=== PATIENT | male | born 1945 | race Hispanic/Latino ===

== ENCOUNTER 2018-01-23 12:07 | Emergency (ER) | payer MEDICARE, MEDICAID ==
[2018-01-23] MEDS ORDERED: Bacitracin Zinc 1 Packet ONE (14:10)
== END 2018-01-23 14:43 | disposition home or self-care (01) ==
LOC: ERS 12:07
DX: S80.811A Abrasion, right lower leg, initial encounter (principal); I25.10 Atherosclerotic heart disease of native coronary artery without angina pectoris; B19.20 Unspecified viral hepatitis C without hepatic coma; E66.9 Obesity, unspecified; E78.2 Mixed hyperlipidemia; I10 Essential (primary) hypertension; W22.8XXA Striking against or struck by other objects, initial encounter
CPT/HCPCS: 99283

== ENCOUNTER 2018-01-29 12:15 | Emergency (ER) | payer MEDICARE, MEDICAID ==
[2018-01-29] MEDS ORDERED: cefTRIAXone\\ROCEPHIN 2 GM VIAL ONE (13:42)
[2018-01-29 13:56] LABS: Hemoglobin 13.2 g/dL (14.0-18.0); Mean Corpuscular HGB CONC 33.9 g/dL (32.0-36.0); Mean Corpuscular Volume 91.4 fL (78.0-98.0); Mean Platelet Volume 9.6 fL (7.4-10.4); Platelet Count 203 thou/uL (130-400); RBC Distribution Width 12.9 % (11.5-14.5); Red Blood Cell (RBC) Count 4.26 mill/uL (4.70-6.10); White Blood Cell (WBC) Count 8.5 thou/uL (4.8-10.8)
[2018-01-29 14:14] LABS: ALT (SGPT) 21 U/L (8-55); AST (SGOT) 23 U/L (5-34); Albumin 4.1 g/dL (3.4-4.8); Alkaline Phosphatase 63 U/L (40-150); Anion Gap 16 mmol/L (10-20); BUN (Urea Nitrogen) 22 mg/dL (8.4-25.7); Band 1 % (5-11); Bilirubin, Total 0.7 mg/dL (0.2-1.2); Calc. Creatinine Clearance 0 mL/min (70-130); Calcium 9.7 mg/dL (7.8-10.44); Carbon Dioxide 26 mmol/L (23-31); Chloride 100 mmol/L (98-107); Estimated GFR-MDRD 63; Globulin 3.4 g/dL (2.4-3.5); Glucose 221 mg/dL (83-110); Lymphocytes 5 % (21-51); MDiff Complete? YES; Monocytes 2 % (0-10); Neutrophil 92 % (42-75); PLT Morphology Comment Appears Adequate; Potassium 3.8 mmol/L (3.5-5.1); Protein, Total 7.5 g/dL (5.8-8.1); Sodium 138 mmol/L (136-145)
--- NOTE | 2018-01-29 14:30 | RAD ---
RIGHT FORELEG RADIOGRAPHS 2 VIEWS: DATE: 01/29/18. PROVIDED CLINICAL HISTORY: Right leg infection. FINDINGS: Vascular calcifications are seen. No evidence for soft tissue gas. No evidence for fracture or othe r acute osseous abnormality. IMPRESSION: As above. POS: LEIGHA
== END 2018-01-29 15:22 | disposition home or self-care (01) ==
LOC: ERS 12:15
DX: L03.115 Cellulitis of right lower limb (principal); I25.10 Atherosclerotic heart disease of native coronary artery without angina pectoris; E78.5 Hyperlipidemia, unspecified; I10 Essential (primary) hypertension; E66.9 Obesity, unspecified
CPT/HCPCS: 36415; 80053; 83605; 85025; 87040; 96365; J0696

== ENCOUNTER 2018-03-26 09:52 | Observation (INO) | payer MEDICARE, MEDICAID ==
[2018-03-26 10:23] LABS: #Eosinphils 0.1 thou/uL (0.0-0.7); #Lymphocytes 1.5 thou/uL (1.20-3.40); #Monocytes 0.6 thou/uL (0.11-0.59); #Neutrophils 5.7 thou/uL (1.40-6.50); %Basophils 0.1 % (0.0-1.0); %Eosinophils 1.2 % (0.0-10.0); %Lymphocytes 18.6 % (21.0-51.0); %Monocytes 8.1 % (0.0-10.0); %Neutrophils 72.1 % (42.0-75.0); Hemoglobin 13.5 g/dL (14.0-18.0); Mean Corpuscular Hemoglobin 29.3 pg (27.0-31.0); Platelet Count 237 thou/uL (130-400); RBC Distribution Width 13.5 % (11.5-14.5); Red Blood Cell (RBC) Count 4.59 mill/uL (4.70-6.10); White Blood Cell (WBC) Count 7.9 thou/uL (4.8-10.8)
[2018-03-26 10:39] LABS: ALT (SGPT) 24 U/L (8-55); AST (SGOT) 26 U/L (5-34); Alkaline Phosphatase 66 U/L (40-150); Anion Gap 13 mmol/L (10-20); BUN (Urea Nitrogen) 23 mg/dL (8.4-25.7); Bilirubin, Total 0.6 mg/dL (0.2-1.2); CK (CPK) 120 U/L (30-200); Calc. Creatinine Clearance 0 mL/min (70-130); Calcium 9.5 mg/dL (7.8-10.44); Carbon Dioxide 26 mmol/L (23-31); Chloride 102 mmol/L (98-107); Estimated GFR-MDRD 75; Globulin 3.2 g/dL (2.4-3.5); Glucose 142 mg/dL (83-110); Protein, Total 7.2 g/dL (5.8-8.1); Sodium 137 mmol/L (136-145)
[2018-03-26 10:43] LABS: CKMB 4.4 ng/mL (0-6.6); Troponin I 0.012 ng/mL (< 0.028)
--- NOTE | 2018-03-26 11:00 | RAD ---
PORTABLE CHEST: Date: 03/26/18 PROVIDED CLINICAL HISTORY: Shortness of breath. FINDINGS: Comparison with 01/13/15. The cardiac silhouette appears enlarged. Median sternotomy changes are again seen. Atherosclerosis ag ain noted. No focal consolidation, pleural fluid, or pneumothorax apparent. IMPRESSION: No evidence for an acute cardiopulmonary process. POS: JENNIFER
[2018-03-26 11:57] LABS: Bilirubin Negative (Negative); Blood, Urine Negative (Negative); Clarity CLOUDY (Clear); Glucose, Urine (Dipstick) Negative (Negative); Leukocyte Large (Negative); Nitrite Positive (Negative); Protein, Urine (Dipstick) 30 mg/dL (Neg-Trace); Specific Gravity, Urine 1.018 (1.002-1.036); pH, Urine 7.5 (5.0-9.0)
[2018-03-26 12:00] LABS: Bacteria/HPF 4+ HPF (None Seen); Hyaline Casts/LPF 0-3 HYALINE CAST LPF (0-3 Hyaline); RBC/HPF 0-3 HPF (0-3); Squamous Epithelial None Seen HPF (0-3)
[2018-03-26] MEDS ORDERED: cefTRIAXone\\ROCEPHIN 1 GM VIAL ONE (12:29)
[2018-03-26] MEDS ORDERED: Sodium Chloride 0.9% 100 ML ONE (12:29)
[2018-03-26] MEDS ORDERED: Bisacodyl 10 MG SUPP PR PRN (13:06)
[2018-03-26] MEDS ORDERED: hydrALAZINE 20 MG/ML VIAL SLOW IVP PRN (13:06)
[2018-03-26] MEDS ORDERED: HumaLOG 300 UNITS/3 ML VIAL SC PRN ×2 (13:06)
[2018-03-26] MEDS ORDERED: Artificial Tears 18 DROP/0.9 ML EA EYE PRN (13:06)
[2018-03-26] MEDS ORDERED: Ondansetron ODT 4 MG TAB PO PRN (13:06)
[2018-03-26] MEDS ORDERED: Bisacodyl 5 MG TAB PO PRN (13:06)
[2018-03-26] MEDS ORDERED: Cepastat Lozenges 1 LOZ PO PRN (13:06)
[2018-03-26] MEDS ORDERED: Dextrose 50% Abboject 50 ML SYRINGE SLOW IVP PRN (13:06)
[2018-03-26] MEDS ORDERED: Nitroglycerin 0.4 MG TAB (25 Tab Bottle) SL PRN (13:06)
[2018-03-26] MEDS ORDERED: Eucerin (Mineral Oil/Petrolatum,White) 30 gm Jar TOP PRN (13:06)
[2018-03-26] MEDS ORDERED: Loperamide HCl 2 MG CAP PO PRN (13:06)
[2018-03-26] MEDS ORDERED: Diabetic Tussin 200 MG/10 ML UDCUP PO PRN (13:06)
[2018-03-26] MEDS ORDERED: Acetaminophen 325 MG TAB PO PRN (13:06)
[2018-03-26] MEDS ORDERED: Zolpidem Tartrate 5 MG TAB PO PRN (13:06)
[2018-03-26] MEDS ORDERED: Dextrose 5% in Water 1,000 ML IV PRN (13:06)
[2018-03-26] MEDS ORDERED: Senokot S 8.6-50 MG TAB PO PRN (13:06)
[2018-03-26] MEDS ORDERED: Calcium Carbonate 500 MG ChewTAB PO PRN (13:06)
[2018-03-26] MEDS ORDERED: Ondansetron PF 4 MG/2 ML Vial IVP PRN (13:06)
[2018-03-26] MEDS ORDERED: Loratadine 10 MG TAB PO PRN (13:06)
[2018-03-26] MEDS ORDERED: Sodium Chloride 0.65% Nasal 44 ML BOT EA NARE PRN (13:06)
--- NOTE | 2018-03-26 14:02 | HP ---
PRIMARY CARE PHYSICIAN: Dr. Herbert. REASON FOR ADMISSION: Dyspnea, multiple PVCs and bigeminy. HISTORY OF PRESENT ILLNESS: A 73-year-old male who has multiple medical problems including coronary artery disease, peripheral vascular disease, diabetes, hypertension, dyslipidemia, obesity w ho is experiencing dyspnea for about 6 months to 1 year. He feels that whenever he feels pale at bethany t time, he has to take a deep breath. After that he feels better. Initially, this type of deep kortney thing spells happening intermittently and rarely. The patient is following Dr. Pena as an outpatie nt basis. For the last 3 days, he has increasing number of gasping for breath that type of spells, b ut he denies any associated chest pain, palpitation, dizziness, syncope. He denies any orthopnea, PN D or leg swelling. He denies any muscle cramps. He is experiencing this type of spells more frequen tly and that is why he decided to come to the emergency room for evaluation. Patient reports that when he saw Dr. Pena, he was instructed to get some kind of procedure to be do ne, but he did not have that procedure. The patient does not have any clue about which procedure is talking about, but he pointing towards pacemaker. Patient denies any orthopnea, PND, leg swelling. He does have chronic low back pain and that is why after walking a few minutes, he gets leg pain as well as back pain and that is why he is pretty much sedentary nowadays. When he came to emergency room, his EKG was showing multiple PVCs, bigeminy, trigeminy pattern and hi s symptoms were corresponding to that spells in the emergency room. REVIEW OF SYSTEMS: The following complete review of systems was negative, unless otherwise mentioned in the HPI or below: Constitutional: Weight loss or gain, ability to conduct usual activities. Sk in: Rash, itching. Eyes: Double vision, pain. ENT/Mouth: Nose bleeding, neck stiffness, pain, te nderness. Cardiovascular: Palpitations, dyspnea on exertion, orthopnea. Respiratory: Shortness of breath, wheezing, cough, hemoptysis, fever or night sweats. Gastrointestinal: Poor appetite, abdom inal pain, heartburn, nausea, vomiting, constipation, or diarrhea. Genitourinary: Urgency, frequenc y, dysuria, nocturia. Musculoskeletal: Pain, swelling. Neurologic/Psychiatric: Anxiety, depressio n. Allergy/Immunologic: Skin rash, bleeding tendency. Please see my HPI for pertinent positive and negative. All other review of system reviewed and negat noble except as mentioned in the HPI. PAST MEDICAL HISTORY: Coronary artery disease, required CABG; gastroesophageal reflux disease; histo ry of hep C; diabetes type 2; dyslipidemia; obesity; chronic low back pain. PAST SURGICAL HISTORY: CABG x4, hernia repair, back surgery. PAST PSYCHIATRIC HISTORY: Reviewed and negative. SOCIAL HISTORY: The patient lives at home with family. No history of tobacco, alcohol or illicit dr ug abuse. FAMILY HISTORY: Diabetes, hypertension runs among several family members. No family history of sudd en cardiac . ALLERGIES: BACTRIM. CURRENT HOME MEDICATIONS: Vascepa one tablet twice daily, Zanaflex 4 mg twice daily, metformin 1000 mg twice daily, pentoxifylline 400 mg 3 times daily, TriCor 145 mg daily, glipizide 10 mg twice daily , Lipitor 10 mg daily, quinapril 40 mg at bedtime, hydrochlorothiazide 25 mg p.o. daily, Lantus insul in and Humalog insulin dose not known. EMERGENCY ROOM COURSE: Reviewed. PHYSICAL EXAMINATION: VITAL SIGNS: On arrival, blood pressure 117/77, pulse 74, respiratory rate 20, temperature 98.5, sat uration 99% on room air, weight 113.4 kilograms. GENERAL: Patient is currently alert, awake, in no obvious acute distress. HEAD: Normocephalic, atraumatic. EYES: Pupils round, reactive to light. Extraocular muscle intact. ENT: Oropharynx within normal limits. Moist mucous membranes. No oral lesion, no pharyngeal erythe ma, no exudate. NECK: Supple, slightly elevated JVD noted. No thyromegaly, no carotid bruit, no meningeal signs of irritation. LUNGS: Coarse breath sounds, but no rales, no wheezing, no accessory muscles of respiration in use. CARDIAC: S1, S2, slightly appears irregular. No gross murmur noted, no gallop, no rub. ABDOMEN: Obesity present. Bowel sounds present. EXTREMITIES: A trace edema noted and chronic changes. Upper extremity: Passive movements of all tasha ints are normal. BACK: Unremarkable, no point tenderness. NEUROLOGIC: Nonfocal examination. SKIN: No skin rash. PSYCHIATRIC: Normal affect. SIGNIFICANT LABORATORY DATA: EKG showing multiple premature ventricular complexes bigeminy, right bu ndle branch block pattern. Chest x-ray based on my review, cardiomegaly without any acute process. CBC: WBC 7.9, hemoglobin 13.5, platelet 237. BMP: Sodium 137, potassium 4.0, chloride 102, carbon dioxide 26, anion gap 13, BUN 23, creatinine 0.98, glucose 142, calcium 9.5. LFT: AST 26, ALT 24, a lkaline phosphatase 66, albumin 4.0. CK 120, CK-MB 4.4, troponin I 0.012. Urinalysis suggestive of urinary tract infection, though patient does not have any UTI symptoms. ASSESSMENT AND PLAN/IMPRESSION: 1. Dyspnea. The patient's dyspnea spell, he describes as a deep grasping breath which happens inter mittently and that corresponded to his episode of bigeminy, trigeminy in the emergency room. 2. Bigeminy, trigeminy and multiple premature ventricular contractions, symptomatic with dyspnea. W e will obtain echocardiography. We will check magnesium level. Cardiology will be consulted. We wi ll defer further plan to Cardiology. We will start metoprolol 25 mg twice daily. This patient's eff ective heart rate is normal, but because of bigeminy and trigeminy, his rate remains low. 3. Urinary tract infection. We will send urine culture and start Rocephin 1 gram q.24 hours. 4. Elevated BNP. We will obtain echocardiography to assess ejection fraction and other structural a bnormality. 5. Diabetes type 2. After confirming patient's home medication, we will resume glipizide, metformin , and insulin. Diabetic diet will be given. 6. Dyslipidemia. Check lipid profile tomorrow and continue Lipitor as per home dosage. 7. Hypertension. We will continue quinapril 40 mg daily. At this point, we will also continue hydr ochlorothiazide 25 mg p.o. daily. 8. Peripheral vascular disease. Continue pentoxifylline. 9. Chronic low back pain. Continue Zanaflex 4 mg twice daily p.r.n. and pain medication as needed. 10. Coronary artery disease. Continue aspirin 81 mg p.o. daily along with other medication as xiang sesay above. 11. Deep venous thrombosis prophylaxis. Lovenox 40 mg subcu daily. 12. Gastrointestinal prophylaxis, Pepcid 20 mg p.o. b.i.d. 13. Code status: The patient is FULL CODE. Patient's daughter present at bedside, she is surrogate decision maker. 14. Obesity. Dietary education given, weight loss education given. Disposition plan based on clinical course and Cardiology recommendation. Plan of care discussed with the patient and family member at bedside.
[2018-03-26] MEDS: HYDROcodone/Acetaminophen 5/325 mg Tablet PO PRN (16:19)
[2018-03-26] MEDS: metFORMIN 500 MG TAB PO SCH (16:20)
[2018-03-26] MEDS ORDERED: (Icosapent Ethyl [Vascepa] 2 GM) PO SCH (17:00)
[2018-03-26 19:06] LABS: CKMB 3.4 ng/mL (0-6.6); Troponin I 0.015 ng/mL (< 0.028)
[2018-03-26] MEDS: Famotidine 20 MG TAB PO SCH (20:44)
[2018-03-26] MEDS: tiZANidine HCl 4 MG TAB PO SCH (20:44)
[2018-03-26] MEDS ORDERED: tiZANidine HCl 4 MG TAB PO SCH (21:00)
[2018-03-26] MEDS ORDERED: Atorvastatin Calcium 10 MG TAB PO SCH (21:00)
[2018-03-26] MEDS ORDERED: Non-Formulary Item 1 EACH (Insulin Glargine,Hum.Rec.Anlog [Lantus Solostar] 50 UNIT) SQ SCH (21:00)
[2018-03-26] MEDS: Insulin Glargine 50 UNITS in Pre-Filled Syringe SC SCH (21:17)
[2018-03-27 04:13] LABS: #Eosinphils 0.2 thou/uL (0.0-0.7); #Lymphocytes 1.5 thou/uL (1.20-3.40); #Monocytes 0.7 thou/uL (0.11-0.59); #Neutrophils 5.2 thou/uL (1.40-6.50); %Basophils 0.3 % (0.0-1.0); %Eosinophils 2.6 % (0.0-10.0); %Lymphocytes 19.6 % (21.0-51.0); %Monocytes 8.7 % (0.0-10.0); %Neutrophils 68.8 % (42.0-75.0); Hemoglobin 13.1 g/dL (14.0-18.0); Mean Corpuscular HGB CONC 32.2 g/dL (32.0-36.0); Mean Corpuscular Hemoglobin 28.7 pg (27.0-31.0); Mean Corpuscular Volume 89.3 fL (78.0-98.0); Mean Platelet Volume 9.6 fL (7.4-10.4); Platelet Count 208 thou/uL (130-400); RBC Distribution Width 13.6 % (11.5-14.5); Red Blood Cell (RBC) Count 4.57 mill/uL (4.70-6.10); White Blood Cell (WBC) Count 7.6 thou/uL (4.8-10.8)
[2018-03-27 04:32] LABS: Anion Gap 13 mmol/L (10-20); BUN (Urea Nitrogen) 20 mg/dL (8.4-25.7); Calc. Creatinine Clearance 111 mL/min (70-130); Calcium 9.7 mg/dL (7.8-10.44); Carbon Dioxide 25 mmol/L (23-31); Chloride 105 mmol/L (98-107); Cholesterol 127 mg/dl (< 200 Desired); Estimated GFR-MDRD 81; Glucose 125 mg/dL (83-110); HDL Cholesterol 32 mg/dL (>60 Neg Risk); LDL Cholesterol, Calculated 66 mg/dL; Sodium 139 mmol/L (136-145); Triglycerides 143 mg/dL (Less than 150)
[2018-03-27] MEDS: tiZANidine HCl 4 MG TAB PO SCH (08:29)
[2018-03-27] MEDS: metFORMIN 500 MG TAB PO SCH ×2 (08:30→17:42)
[2018-03-27] MEDS: Famotidine 20 MG TAB PO SCH (08:31)
[2018-03-27] MEDS: HYDROcodone/Acetaminophen 5/325 mg Tablet PO PRN (08:39)
[2018-03-27] MEDS ORDERED: Hydrochlorothiazide 25 MG TAB PO SCH ×2 (09:00)
[2018-03-27] MEDS ORDERED: TRAMADOL PO SCH (09:00)
[2018-03-27] MEDS ORDERED: Aspirin 325 mg Enteric Coated Tablet PO SCH (09:00)
[2018-03-27] MEDS ORDERED: Enoxaparin Sodium 40 MG/0.4 ML SYRINGE SC SCH (09:00)
[2018-03-27] MEDS ORDERED: Fenofibrate Nanocrystallized 145 MG TAB PO SCH (09:00)
--- NOTE | 2018-03-27 09:44 | PDOC.PN ---
- Subjective Encounter Start Date: 03/27/18 Encounter Start Time: 07:50 -: old records requested/rev Patient seen and examined. No overnight events today he reports UTI symptoms - Objective Resuscitation Status: Resuscitation Status FULL:Full Resuscitation MAR Reviewed: Yes Vital Signs & Weight: Vital Signs (12 hours) Temp Pulse Resp BP Pulse Ox 03/27/18 08:00 98 F 70 18 168/78 H 94 L 03/27/18 03:32 97.9 F 76 15 142/88 H 93 L 03/26/18 22:38 97.5 F L 69 20 141/66 H 96 Weight Weight 246 lb I&O: 03/26/18 03/27/18 03/28/18 06:59 06:59 06:59 Intake Total 720 Output Total 375 Balance 345 Result Diagrams: 03/27/18 03:30 03/27/18 03:30 Additional Labs: Accuchecks 03/26/18 03/26/18 20:42 16:02 POC Glucose 170 H 168 H EKG Reviewed by me: Yes (PVCs) Phys Exam - Physical Examination Constitutional: NAD HEENT: PERRLA, moist MMs, sclera anicteric Neck: no JVD, supple Respiratory: no wheezing, no rales, no rhonchi Cardiovascular: RRR, no significant murmur, no rub Gastrointestinal: soft, non-tender, no distention, positive bowel sounds Musculoskeletal: no edema, pulses present Neurological: non-focal, normal sensation, moves all 4 limbs Lymphatic: no nodes Psychiatric: normal affect, A&O x 3 Skin: no rash, normal turgor Dx/Plan (1) Dyspnea Code(s): R06.00 - DYSPNEA, UNSPECIFIED Status: Acute Comment: due to PVCs (2) Elevated brain natriuretic peptide (BNP) level Code(s): R79.89 - OTHER SPECIFIED ABNORMAL FINDINGS OF BLOOD CHEMISTRY Status : Acute (3) Frequent PVCs Code(s): I49.3 - VENTRICULAR PREMATURE DEPOLARIZATION Status: Acute Comment : with intermittent bigeminy and trigeminy, symptomatic (4) UTI (urinary tract infection) Status: Acute (5) CAD (coronary artery disease) Code(s): I25.10 - ATHSCL HEART DISEASE OF [place] CORONARY ARTERY W/O ANG PCTRS Status: Chronic (6) Diabetes type 2, controlled Code(s): E11.9 - TYPE 2 DIABETES MELLITUS WITHOUT COMPLICATIONS Status: Chronic (7) Dyslipidemia Code(s): E78.5 - HYPERLIPIDEMIA, UNSPECIFIED Status: Chronic (8) GERD (gastroesophageal reflux disease) Code(s): K21.9 - GASTRO-ESOPHAGEAL REFLUX DISEASE WITHOUT ESOPHAGITIS Status: Chronic (9) Hypertension Code(s): I10 - ESSENTIAL (PRIMARY) HYPERTENSION Status: Chronic (10) Obesity (BMI 30-39.9) Code(s): E66.9 - OBESITY, UNSPECIFIED Status: Chronic - Plan cont current plan of care, continue antibiotics * continue rocephin for UTI, on discharge PO cipro * Dr Pena will see, ? metoprolol to be started * Echo pending * will consider discharge later today if cardiology OK * medication reviewed as below * symptomatic treatment. Review of Systems - Review of Systems ENT: negative: Ear Pain, Ear Discharge, Nose Pain, Nose Discharge, Nose Congestion, Mouth Pain, Mouth Swelling, Throat Pain, Throat Swelling, Other Respiratory: negative: Cough, Dry, Shortness of Breath, Hemoptysis, SOB with Excertion, Pleuritic Pain, Sputum, Wheezing Cardiovascular: negative: chest pain, palpitations, orthopnea, paroxysmal nocturnal dyspnea, edema, light headedness, other Gastrointestinal: negative: Nausea, Vomiting, Abdominal Pain, Diarrhea, Constipation, Melena, Hematochezia, Other Genitourinary: negative: Dysuria, Frequency, Incontinence, Hematuria, Retention , Other Musculoskeletal: negative: Neck Pain, Shoulder Pain, Arm Pain, Back Pain, Hand Pain, Leg Pain, Foot Pain, Other Skin: negative: Rash, Lesions, Raúl, Bruising, Other - Medications/Allergies Allergies/Adverse Reactions: Allergies Allergy/AdvReac Type Severity Reaction Status Date / Time trimethoprim [From Bactrim] Allergy Verified 03/26/18 13:11 Medications: Current Medications Acetaminophen (Tylenol) 650 mg PO Q4H PRN PRN Reason: Headache/Fever/Mild Pain (1-3) Hydrocodone Bitart/Acetaminophen ([place] 5/325) 1 tab PO Q4H PRN PRN Reason: Moderate Pain (4-6) Last Admin: 03/27/18 08:39 Dose: 1 tab Artificial Tears (Tears Naturale) 2 drop EA EYE PRN PRN PRN Reason: Dry Eyes Aspirin (Aspirin Chewable) 81 mg PO DAILY [facility] Last Admin: 03/27/18 08:32 Dose: 81 mg Atorvastatin Calcium (Lipitor) 10 mg PO HS [facility] Last Admin: 03/26/18 20:44 Dose: 10 mg Bisacodyl (Dulcolax) 10 mg PO DAILYPRN PRN PRN Reason: Constipation Bisacodyl (Dulcolax) 10 mg MA DAILYPRN PRN PRN Reason: Constipation Calcium Carbonate (Tums) 1,000 mg PO Q4H PRN PRN Reason: Heartburn or Indigestion Dextrose/Water (Dextrose 50%) 25 gm SLOW IVP PRN PRN PRN Reason: Hypoglycemia Enoxaparin Sodium (Lovenox) 40 mg SC 0900 [facility] Last Admin: 03/27/18 08:35 Dose: Not Given Famotidine (Pepcid) 20 mg PO BID [facility] Last Admin: 03/27/18 08:31 Dose: 20 mg Fenofibrate (Tricor) 145 mg PO DAILY [facility] Last Admin: 03/27/18 08:30 Dose: 145 mg Glipizide (Glucotrol Xl) 10 mg PO BID-AC [facility] Last Admin: 03/27/18 08:31 Dose: 10 mg Glucagon (Glucagon) 1 mg IM PRN PRN PRN Reason: Hypoglycemia Guaifenesin (Robitussin Sf) 200 mg PO Q4H PRN PRN Reason: Cough Hydralazine HCl (Apresoline) 10 mg SLOW IVP Q4H PRN PRN Reason: SBP Greater Than 170 Hydrochlorothiazide (Hydrochlorothiazide) 25 mg PO DAILY [facility] Dextrose/Water (D5w) 1,000 mls @ 0 mls/hr IV .Q0M PRN PRN Reason: Hypoglycemia Ceftriaxone Sodium 1 gm/ (Sodium Chloride) 100 mls @ 200 mls/hr IVPB 1200 [facility] Insulin Glargine 50 units/ (Miscellaneous Medication) 0.5 mls @ 0 mls/hr SC BID [facility] Last Admin: 03/26/18 21:17 Dose: Not Given Insulin Human Lispro (Humalog) 0 units SC .MODERATE SLIDING SC PRN PRN Reason: Moderate Correctional Scale Last Admin: 03/26/18 16:21 Dose: 2 unit Insulin Human Lispro (Humalog) 0 units SC .BEDTIME SLIDING SC PRN PRN Reason: Bedtime Correctional Scale Loperamide HCl (Imodium) 2 mg PO PRN PRN PRN Reason: Diarrhea/Loose Stools Loratadine (Claritin) 10 mg PO DAILYPRN PRN PRN Reason: Sinus Symptoms Metformin HCl (Glucophage) 1,000 mg PO BID-[facility] Last Admin: 03/27/18 08:30 Dose: 1,000 mg Mineral Oil/White Petrolatum (Eucerin Cream) 0 gm TOP BIDPRN PRN PRN Reason: Dry Skin Nitroglycerin (Nitrostat) 0.4 mg SL Q5MIN PRN PRN Reason: Chest Pain (Icosapent Ethyl [ (Vascepa] 2 Gm)) 2 gm PO BID-[facility] (Tramadol Hcl [ Tramadol Hcl Er] 150 Mg) 150 mg PO DAILY [facility] Ondansetron HCl (Zofran Odt) 4 mg PO Q6H PRN PRN Reason: Nausea/Vomiting Ondansetron HCl (Zofran) 4 mg IVP Q6H PRN PRN Reason: Nausea/Vomiting Pentoxifylline (Trental) 400 mg PO TID-[facility] Last Admin: 03/26/18 16:20 Dose: 400 mg Quinapril HCl (Accupril) 40 mg PO DAILY [facility] Senna/Docusate Sodium (Senokot S) 2 tab PO BID PRN PRN Reason: Constipation Sodium Chloride ([place] Nasal [place] 0.65%) 0 ml EA NARE QIDPRN PRN PRN Reason: Nasal Congestion Throat Lozenges (Cepastat Lozenges) 1 tim PO Q2H PRN PRN Reason: Sore Throat Tizanidine HCl (Zanaflex) 2 mg PO BID [facility] Last Admin: 03/27/18 08:29 Dose: 2 mg Zolpidem Tartrate (Ambien) 5 mg PO HSPRN PRN PRN Reason: Insomnia
--- NOTE | 2018-03-27 11:19 | DIS ---
DATE OF ADMISSION: 03/26/2018 DATE OF DISCHARGE: 03/27/2018 PRIMARY CARE PHYSICIAN: Darling Herbert M.D. DISCHARGE DISPOSITION: Home. PRIMARY DISCHARGE DIAGNOSES: 1. Frequent premature ventricular contractions with bigeminy and trigeminy, symptomatic. 2. Urinary tract infection. SECONDARY DISCHARGE DIAGNOSES: Obesity with BMI 35, hypertension, dyslipidemia, gastroesophageal ref lux disease, diabetes type 2, coronary artery disease. PRIMARY PROCEDURE/OPERATION: None. RADIOLOGICAL INVESTIGATION: Chest x-ray normal. SIGNIFICANT LABORATORY DATA: WBC 7.6, hemoglobin 13.1, platelets 208,000. Sodium 139, creatinine 0. 91. Magnesium 2.1. LDL 66. TSH 1.49. Cardiac enzymes negative x3. LFT normal. Electrolytes norm al. Urinalysis suggestive of UTI. Urine culture grew gram negative rajesh. DISCHARGE MEDICATIONS: Cipro 500 mg p.o. b.i.d. for 7 days. The patient will continue all his previ ous medication including aspirin 325 mg p.o. daily, Lipitor 10 mg p.o. daily, TriCor 145 mg p.o. teresa y, Glucotrol 10 mg p.o. b.i.d., hydrochlorothiazide 25 mg p.o. daily, Vascepa 2 grams p.o. b.i.d., No voLog insulin 18 units subcutaneously b.i.d., Lantus insulin 50 units subcu b.i.d., metformin 1000 mg p.o. b.i.d., Trental 400 mg p.o. t.i.d., quinapril 40 mg p.o. daily, Zanaflex 4 mg p.o. b.i.d. p.r.n ., tramadol ER 150 mg p.o. daily. CONTRAINDICATIONS: None. CODE STATUS: Full code. INPATIENT CONSULTANTS: Dr. Pena was consulted while in hospital. TEST RESULTS PENDING ON DISCHARGE: None. ALLERGIES: BACTRIM. DISCHARGE PLAN: Post hospital, the patient will follow up with Dr. Pena as instructed and primary care physician in 1 week. HOSPITAL COURSE: A 73-year-old male who has a long history of frequent PVCs and he is following Dr. Pena as an outpatient basis. For the last week, the patient was experiencing symptoms associated w ith more frequent PVCs. The patient is experiencing gasping sensation whenever he feels PVCs. In th e emergency room, the patient was noted to have bigeminy and trigeminy and his symptoms of gasping fo r air was correlated with episodes. The patient was admitted to telemetry floor for observation and Dr. Pena was consulted. Echocardiography was obtained. Official report of echocardiography is lisa garcia. Dr. Pena's recommendation is also pending. The patient's urinalysis and his symptoms were c onsistent with UTI, which was treated with Rocephin while in hospital. On discharge, we prescribed C ipro. As long as Dr. Pena is okay, then this patient is medically stable for discharge later on today aft er echocardiography done. The patient is instructed to follow up with primary care physician for uri ne culture result to change antibiotic therapy if needed.
[2018-03-27] MEDS: Insulin Glargine 50 UNITS in Pre-Filled Syringe SC SCH (11:57)
[2018-03-27] MEDS ORDERED: cefTRIAXone\\ROCEPHIN 1 GM in Sodium Chloride 0.9% 100 ML IVPB SCH (12:00)
[2018-03-27 14:36] VITALS: BMI 35.3
[2018-03-27 15:45] VITALS: BP 128/66; TEMP 98
--- NOTE | 2018-03-27 23:47 | CON ---
DATE OF CONSULTATION: 03/27/2018 ELECTROPHYSIOLOGY CONSULTATION REPORT REFERRING PHYSICIAN: Dr. Saxena as well as Dr. Pena. I am seeing Mr. Calix at our [facility] telemetry floor as an electrophysiology oracle bpm consultant fo r the following problems: 1. Frequent ventricular ectopy. A. Telemetry and Holter monitoring. Both reveal frequent dense ectopy 45% beats are PVCs on monitor on 10/26/2017 also nonsustained VT 3-4 beats are seen. B. Current telemetry reveals a right bundle morphology monomorphic PVCs. 2. Chronic CHF with ischemic cardiomyopathy. A. Prior history of coronary artery bypass grafting surgery x5 vessels. B. Most recent nuclear stress test from 02/21/2018 with LVEF 39%, fixed inferior wall defect without ischemia comfortable with a prior inferior infarct. C. A 2D echo from 03/27/2018 with LVEF of about 40%, although difficult to obtain due to frequent PV Cs. 3. Risk factors including diabetes, hypertension, dyslipidemia, and obesity. 4. History of peripheral vascular disease. ALLERGIES: TRIMETHOPRIM. MEDICATIONS AT HOME: Included tramadol, Lipitor, glipizide, hydrochlorothiazide, insulin glargine, i nsulin aspart, metformin, quinapril, aspirin, pentoxifylline, fenofibrate, and tizanidine. SUBJECTIVE: Mr. Calix is here due to episodic dyspneic sensations required him to take a deep breath. He also feels his heart fluttering. He does not get dizzy after pass out. No chest pains are note d. No fever, chills, or cough. No stroke-like symptoms, no neurological deficits. REVIEW OF SYSTEMS: Rest of 12-point system is unremarkable. PAST MEDICAL HISTORY: As above. He is referred by Dr. Pena in the past. SOCIAL HISTORY: Patient denies smoking, ETOH, or drug abuse. FAMILY HISTORY: Not contributory, but there is a history of diabetes, hypertension in the family mem bers. There is no history of sudden cardiac . OBJECTIVE DATA: VITAL SIGNS: Blood pressure 128/66, heart rate 74, respiration is 16, temperature 98 degrees Fahrenh eit. GENERAL: Alert and oriented man in no apparent distress with elevated BMI. NECK: Supple. Jugular veins are not distended. CHEST: Coarse without crackles. CARDIOVASCULAR: Heart sounds are regular to rate and rhythm. No murmur or gallop. ABDOMEN: Benign. Bowel sounds positive. EXTREMITIES: Lower extremities without edema, clubbing, or cyanosis. Pulses are adequate. NEUROLOGIC: Patient is nonfocal. MUSCULOSKELETAL: Without joint swelling or deformities. SKIN: Without rash. DATABASE: EKGs reviewed from 03/26/2018 reveals sinus rhythm with bigeminy PVCs which are right bund le not excess in morphology. LABORATORY DATA: White count 7.6, hemoglobin 13.1, platelet count is 208 today. Sodium 139, potassi um 4, BUN is 20, creatinine 0.91. Troponin levels are 0.015 in normal range. TSH 1.4998. BNP is 26 0. ASSESSMENT AND PLAN: Mr. Calix is a pleasant 73-year-old man with history of coronary artery disease, moderate reduced LVEF, which is chronic in the 40% range. He has got frequent PVCs both on the [facility] er monitor and also the current hospital telemetry, occasional nonsustained 4-beat ventricular tachyc ardia arrhythmias also were noted. Premature ventricular contractions and ventricular tachycardia mostly monomorphic rhythm as above. PLAN: 1. I discussed the benefit of a potential EP study and ICD implantation if indeed he is inducible fo r ventricular tachycardia. He would like to think about it at this point. 2. We also discussed option of PVC ablation, which likely would be very reasonable in view of his ve ry dense ectopy likely worsen his LVEF as well. Also, he understands and would like to think about i t further. He would like to come back and see us in the office, we will make arrangements. I did wa rn him about the interim arrhythmias. Thank you again for allowing me to participate in the care of this patient.
--- NOTE | 2018-03-28 09:12 | CON ---
DATE OF CONSULTATION: 03/27/2018 HISTORY OF PRESENT ILLNESS: The patient is a 73-year-old gentleman who presents for evaluation of palpitations and dyspnea. The patient has a long history of coronary artery disease. The patient has previously undergone coronary artery bypass graft surgery. He had a history of frequent premature ventricular contractions. The patient has worn a Holter monitor, which revealed very frequent PVCs. He also has undergone several stress tests that revealed him to have a mild decrease in left ventricular systolic function with fixed inferior defect. The patient presented to the emergency room when he noted to have increasing palpitations. The patient felt dyspneic associated with the palpitations. The patient denied having any chest discomfort. PAST MEDICAL HISTORY: 1. Coronary artery disease. 2. Hypertension. 3. PVCs. 4. History of hepatitis C. 5. Diabetes mellitus. 6. Hypertension. PAST SURGICAL HISTORY: Coronary artery bypass surgery, hernia surgery and back surgery. ALLERGIES: None. SOCIAL HISTORY: He is a nonsmoker. FAMILY HISTORY: Positive family history of coronary artery disease. MEDICATIONS ON ADMISSION: Aspirin 325 daily, TriCor 145 at bedtime, HCTZ 25 daily, Lipitor 10 at bedtime, glipizide 10 daily, metformin 1000 b.i.d., metoprolol 25 XL and quinapril 40 daily. PHYSICAL EXAMINATION: GENERAL: Obese gentleman in no acute distress. VITAL SIGNS: Blood pressure 143/93. NECK: Showed no jugular venous distention. LUNGS: Clear to auscultation. HEART: Irregular rate and rhythm, normal S1, S2. ABDOMEN: Distended. EXTREMITIES: Showed trace edema. LABORATORY RESULTS: Sodium 139, potassium 4.0, chloride 105, bicarbonate 25, BUN 20, creatinine 0.9, glucose 125. Troponin 0.015. BNP is 260. IMAGING: His EKG revealed abnormal sinus rhythm with frequent premature ventricular contractions in a bigeminy pattern. IMPRESSION: 1. Symptomatic premature ventricular contractions. 2. History of a myocardial infarction. 3. History of coronary artery bypass surgery. 4. History of myocardial infarction. 5. Diabetes mellitus. 6. Hypertension. 7. Obesity. PLAN: This gentleman presents with very symptomatic PVCs. It has been recommended for some time that he undergo an EP evaluation for ablation. The patient now seems agreeable to proceed. The patient's repeat echocardiogram revealed a mild decrease in left ventricular systolic function. The patient will continue on Toprol. EP consultation will be obtained. KENNETHD
== END 2018-03-27 18:10 | disposition home or self-care (01) ==
LOC: ERS 09:52 → 2SW 12:53
PROVIDERS: ADMIT Internal Medicine; ATTEND Internal Medicine
DX: I49.3 Ventricular premature depolarization (principal); R00.8 Other abnormalities of heart beat; I25.10 Atherosclerotic heart disease of native coronary artery without angina pectoris; E11.51 Type 2 diabetes mellitus with diabetic peripheral angiopathy without gangrene; I73.9 Peripheral vascular disease, unspecified; E78.5 Hyperlipidemia, unspecified; K21.9 Gastro-esophageal reflux disease without esophagitis; G89.29 Other chronic pain; M54.5 Low back pain; I11.0 Hypertensive heart disease with heart failure; I50.22 Chronic systolic (congestive) heart failure; I25.5 Ischemic cardiomyopathy; N39.0 Urinary tract infection, site not specified; I25.2 Old myocardial infarction; E66.9 Obesity, unspecified; Z68.35 Body mass index [BMI] 35.0-35.9, adult; Z87.891 Personal history of nicotine dependence; Z79.4 Long term (current) use of insulin; Z79.899 Other long term (current) drug therapy; Z95.1 Presence of aortocoronary bypass graft
CPT/HCPCS: 71045; 80048; 80053; 80061; 82550; 82553 ×2; 82962 ×2; 83735; 83880; 84443; 84484 ×2; 85025 ×2; 87086; 93005; 96365; 96376; 99285; G0378 ×2; 36415; 36416; 81003; 81015; 96374; J0696; J1650; J7050

== ENCOUNTER 2018-04-24 09:19 | Emergency (ER) | payer MEDICARE, MEDICAID ==
[2018-04-24 10:02] LABS: Bilirubin Negative (Negative); Blood, Urine Trace (Negative); Clarity CLEAR (Clear); Glucose, Urine (Dipstick) Negative (Negative); Leukocyte Large (Negative); Nitrite Negative (Negative); Protein, Urine (Dipstick) Trace mg/dL (Neg-Trace); Specific Gravity, Urine 1.013 (1.002-1.036); pH, Urine 6.5 (5.0-9.0)
[2018-04-24 10:07] LABS: Bacteria/HPF None Seen HPF (None Seen); Hyaline Casts/LPF 0-3 HYALINE CAST LPF (0-3 Hyaline); Pathc Cast-AUWi Flag 0.87 (0-2.49); RBC/HPF 0-3 HPF (0-3); WBC/HPF 21-50 HPF (0-3)
[2018-04-24 10:22] LABS: Renal Epithelial None Seen HPF (0-3); Transitional Epithelial NONE SEEN HPF (0-3)
[2018-04-24 10:44] LABS: #Basophils 0.1 thou/uL (0.0-0.2); #Eosinphils 0.2 thou/uL (0.0-0.7); #Lymphocytes 1.2 thou/uL (1.20-3.40); #Monocytes 0.6 thou/uL (0.11-0.59); #Neutrophils 6.1 thou/uL (1.40-6.50); %Basophils 0.8 % (0.0-1.0); %Lymphocytes 15.1 % (21.0-51.0); %Monocytes 6.8 % (0.0-10.0); %Neutrophils 75.2 % (42.0-75.0); Hemoglobin 12.8 g/dL (14.0-18.0); Mean Corpuscular Hemoglobin 28.5 pg (27.0-31.0); Mean Corpuscular Volume 88.9 fL (78.0-98.0); Mean Platelet Volume 9.2 fL (7.4-10.4); Platelet Count 215 thou/uL (130-400); RBC Distribution Width 14.3 % (11.5-14.5); Red Blood Cell (RBC) Count 4.48 mill/uL (4.70-6.10); White Blood Cell (WBC) Count 8.1 thou/uL (4.8-10.8)
[2018-04-24 11:05] LABS: ALT (SGPT) 31 U/L (8-55); AST (SGOT) 36 U/L (5-34); Albumin 4.1 g/dL (3.4-4.8); Alkaline Phosphatase 72 U/L (40-150); Anion Gap 9 mmol/L (10-20); BUN (Urea Nitrogen) 25 mg/dL (8.4-25.7); Bilirubin, Total 0.7 mg/dL (0.2-1.2); Calc. Creatinine Clearance 0 mL/min (70-130); Calcium 9.8 mg/dL (7.8-10.44); Carbon Dioxide 29 mmol/L (23-31); Chloride 104 mmol/L (98-107); Estimated GFR-MDRD 61; Globulin 3.5 g/dL (2.4-3.5); Potassium 4.1 mmol/L (3.5-5.1); Protein, Total 7.6 g/dL (5.8-8.1); Sodium 138 mmol/L (136-145)
[2018-04-24] MEDS ORDERED: Dextrose 50% Abboject 50 ML SYRINGE ONE (11:18)
[2018-04-24 11:19] LABS: Glucose 48 mg/dL (83-110)
--- NOTE | 2018-04-24 13:19 | RAD ---
CHEST 1 VIEW: HISTORY: Cough. COMPARISON: Chest radiograph 03/26/2018. FINDINGS: Heart size is enlarged. There is a left basilar airspace opacity. There are mitral annular calcific ations. No pneumothorax. Chronic left effusion versus increased extrapleural fat from scarring. IMPRESSION: 1. Cardiomegaly, mild pulmonary venous congestion. 2. Concern for left basilar airspace opacity may reflect atelectasis or early infection. POS: ANISHAH
--- NOTE | 2018-04-26 15:09 | EKG ---
Test Reason : Blood Pressure : / mmHG Vent. Rate : 073 BPM Atrial Rate : 073 BPM P-R Int : 000 ms QRS Dur : 164 ms QT Int : 670 ms P-R-T Axes : 000 065 -45 degrees QTc Int : 738 ms Wide QRS rhythm with frequent Premature ventricular complexes in a pattern of bigeminy Right bundle branch block Inferior infarct , age undetermined Abnormal ECG Confirmed by ERIK ELIZALDE ([id number]), content editor ABDULLAHI TIJERINA ([id number]) on 04/26/2018 3:09:29 PM Referred By: Confirmed By:ERIK ELIZALDE
== END 2018-04-24 12:43 | disposition home or self-care (01) ==
LOC: ERS 09:19
DX: K59.00 Constipation, unspecified (principal); I10 Essential (primary) hypertension; I25.10 Atherosclerotic heart disease of native coronary artery without angina pectoris; E78.5 Hyperlipidemia, unspecified; E66.9 Obesity, unspecified; Z86.19 Personal history of other infectious and parasitic diseases; Z79.4 Long term (current) use of insulin; Z79.899 Other long term (current) drug therapy
CPT/HCPCS: 36416; 71045; 80053; 81003; 81015; 85025; 93005; 96361; 96374

== ENCOUNTER 2018-05-23 08:54 | Day surgery (SDC) | payer MEDICARE, MEDICAID ==
[2018-05-23 09:34] LABS: #Basophils 0.1 thou/uL (0.0-0.2); #Eosinphils 0.2 thou/uL (0.0-0.7); #Lymphocytes 1.5 thou/uL (1.20-3.40); #Monocytes 0.5 thou/uL (0.11-0.59); #Neutrophils 6.6 thou/uL (1.40-6.50); %Basophils 0.6 % (0.0-1.0); %Lymphocytes 16.7 % (21.0-51.0); %Neutrophils 74.7 % (42.0-75.0); Hemoglobin 13.5 g/dL (14.0-18.0); Mean Corpuscular HGB CONC 32.7 g/dL (32.0-36.0); Mean Corpuscular Hemoglobin 28.5 pg (27.0-31.0); Mean Corpuscular Volume 87.3 fL (78.0-98.0); Mean Platelet Volume 8.8 fL (7.4-10.4); Platelet Count 192 thou/uL (130-400); RBC Distribution Width 14.4 % (11.5-14.5); Red Blood Cell (RBC) Count 4.72 mill/uL (4.70-6.10); White Blood Cell (WBC) Count 8.8 thou/uL (4.8-10.8)
[2018-05-23 09:40] LABS: PTT 28.3 SEC (22.9-36.1); Prothrombin Time 13.6 SEC (12.0-14.7)
[2018-05-23 09:53] LABS: Anion Gap 11 mmol/L (10-20); BUN (Urea Nitrogen) 23 mg/dL (8.4-25.7); Calc. Creatinine Clearance 101 mL/min (70-130); Calcium 9.6 mg/dL (7.8-10.44); Carbon Dioxide 26 mmol/L (23-31); Chloride 104 mmol/L (98-107); Estimated GFR-MDRD 69; Glucose 111 mg/dL (83-110); Potassium 4.2 mmol/L (3.5-5.1); Sodium 137 mmol/L (136-145)
[2018-05-23] MEDS ORDERED: Heparin 10,000 UNITS/1 ML VIAL ONE ×2 (12:49→15:50)
[2018-05-23] MEDS ORDERED: Midazolam HCl 2 mg/2 ml Vial ONE ×3 (13:06→14:33)
[2018-05-23] MEDS ORDERED: Fentanyl 100 MCG/2 ML VIAL ONE ×2 (13:06→18:18)
[2018-05-23] MEDS ORDERED: DOPamine 400 MG/D5W 250 ML 0 ML ONE (13:43)
[2018-05-23] MEDS ORDERED: Isoproterenol 0.2 MG/1 ML AMP ONE (13:43)
[2018-05-23] MEDS ORDERED: PROPOFOL 20 ML ONE (14:33)
[2018-05-23] MEDS ORDERED: Propofol 500 MG/50 ML VIAL ONE (15:12)
[2018-05-23] MEDS ORDERED: Heparin 25,000 units/D5W 500 ML ONE (15:12)
[2018-05-23] MEDS ORDERED: Protamine Sulfate 50 MG/5 ML VIAL ONE ×2 (15:53→17:11)
--- NOTE | 2018-05-23 16:15 | EKG ---
Test Reason : PREOP Blood Pressure : / mmHG Vent. Rate : 072 BPM Atrial Rate : 072 BPM P-R Int : 228 ms QRS Dur : 172 ms QT Int : 448 ms P-R-T Axes : 098 040 -29 degrees QTc Int : 490 ms Sinus rhythm with 1st degree A-V block with frequent Premature ventricular complexes in a pattern of bigeminy Right bundle branch block Abnormal ECG When compared with ECG of 24-APR-2018 11:01, Sinus rhythm has replaced Wide QRS rhythm Confirmed by DR. Esther KENNEDY ([id number]) on 05/23/2018 4:14:58 PM Referred By: [facility] Confirmed By:DR. Esther KENNEDY
[2018-05-23] MEDS ORDERED: Amiodarone 150 MG/3 ML VIAL ONE (16:16)
[2018-05-23] MEDS ORDERED: HumaLOG 300 UNITS/3 ML VIAL SC SCH (17:30)
[2018-05-23] MEDS ORDERED: Insulin Glargine 18 UNITS in Pre-Filled Syringe 1 EACH SC SCH (17:30)
[2018-05-23] MEDS ORDERED: Fentanyl 100 MCG/2 ML VIAL SLOW IVP SCH (18:30)
[2018-05-23 20:04] LABS: Bilirubin Negative (Negative); Blood, Urine Negative (Negative); Clarity CLOUDY (Clear); Glucose, Urine (Dipstick) Negative (Negative); Leukocyte Large (Negative); Nitrite Positive (Negative); Protein, Urine (Dipstick) Negative (Neg-Trace); Specific Gravity, Urine 1.018 (1.002-1.036); Urobilinogen 0.2 mg/dL (0.2-1.0)
[2018-05-23 20:08] LABS: Bacteria/HPF 4+ HPF (None Seen); Hyaline Casts/LPF 0-3 HYALINE CAST LPF (0-3 Hyaline); Pathc Cast-AUWi Flag 0.14 (0-2.49); RBC/HPF 0-3 HPF (0-3); Squamous Epithelial None Seen HPF (0-3)
[2018-05-23] MEDS ORDERED: TRAMADOL 200 MG PO SCH (21:00)
[2018-05-23] MEDS ORDERED: Fenofibrate Nanocrystallized 145 MG TAB PO SCH (21:00)
[2018-05-23] MEDS: Carvedilol 3.125 MG TAB PO SCH (22:19)
[2018-05-23] MEDS: tiZANidine HCl 4 MG TAB PO SCH (22:20)
--- NOTE | 2018-05-23 22:41 | OP ---
DATE OF PROCEDURE: 05/23/2018 PROCEDURE PERFORMED: Electrophysiology study and radiofrequency ablation. REASON FOR PROCEDURE: Mr. Calix is a pleasant 73-year-old male with prior history of CHF, ischemic cardiomyopathy, bypass surgery, LVEF 39% to 40%, has very frequent PVCs, and nonsustained ventricular tachycardia episodes are documented on his prior monitors. He has significant dyspnea and here for EP study and possible ablation of his very frequent PVCs. DESCRIPTION OF PROCEDURE: He received anesthesia by anesthesia provider with propofol. After adequate level of sedation achieved, the right and left femoral veins were prepped, draped, and anesthetized using subcutaneous lidocaine and with ultrasound guidance, an 11 and 6-[place] sheaths were introduced on the left side and also an 8-[place] sheath on the right femoral vein. Later, right femoral artery was also cannulated, and 8-[place] sheath was placed into this artery. A quadripolar deflectable catheter was advanced to the right atrium, His bundle , and right ventricle. Pace mapping and recording were performed in each location. The coronary sinus was also sought out in the area with the ablation catheter. Following findings were noted. The baseline rhythm was sinus rhythm. W[place] 255, QRS 180, QT 459 milliseconds, HV was 84 milliseconds, VA block was seen at 390 milliseconds. The ventricular extrastimuli testing was performed at 600 and 400 millisecond drivetrain with up to 3 VES decremented to refractory period. Isuprel was also used during an EP study. In the initial phase of the EP study, very frequent nonsustained ventricular tachyarrhythmia episodes were seen, but they were all shock terminated within 8 to 9 seconds. At this point, an ablation catheter was introduced into the right ventricle, which was a ThermoCool SFST catheter. Right ventricular map of the very frequent right bundle left axis morphology PVCs were mapped and found to be late in the right ventricular location. ICE catheter was inserted into the right ventricle and with this guidance through the right femoral artery, the SFST catheter was advanced into the LV through a retroaortic approach. Careful attention was paid not to engage the graft and the aorta. The 3D map of the left ventricle was also obtained, and the activation of the most frequent dominant PVCs were sought and earliest activation was found to be in the inferobasal portion adjacent to the base of the papillary muscle. Ablation in this area was performed with three ablation lesions at approximately 5 minutes in duration were delivered. The earliest activation was about 30 milliseconds prior to the QRS of the PVCs. This ablation maneuver eliminated this particular morphology of the PVCs. At the end of the case, the ablation catheter was removed through the LV. The repeat RV stimulation was performed with 400, 200, 180, and 180 milliseconds. We were able to induce a very rapid about 220 milliseconds monomorphic ventricular tachycardia/flutter, which was seen to be unstable and required shock termination. Throughout the case, the patient had recurrent atrial fibrillation, which required multiple cardioversions. Eventually, IV amiodarone and repeat cardioversion was performed during the end of the case withrecurrent afib still present. At the end of the case, the ICE catheter shows no pericardial effusion. CONCLUSION: 1. Frequent right bundle left axis morphology PVCs were mapped to the left basal inferior area adjacent to the papillary muscle and successfully ablated. 2. Inducible ventricular tachycardia. 3. Persisting atrial fibrillation was seen. 4. Prolonged HV interval. PLAN: Add IV amiodarone and consider ICD implantation. Job ID: [id number] [facility]
[2018-05-24] MEDS: traMADol HCl 50 MG TAB PO PRN ×2 (06:08→14:06)
[2018-05-24 06:15] VITALS: BMI 36.9
[2018-05-24] MEDS ORDERED: CEFAZOLIN 1 GM VIAL ONE (08:13)
[2018-05-24] MEDS ORDERED: Fentanyl 100 MCG/2 ML VIAL ONE (08:13)
[2018-05-24] MEDS ORDERED: Midazolam HCl 2 mg/2 ml Vial ONE ×2 (08:13→08:49)
[2018-05-24] MEDS ORDERED: Aspirin 325 MG TAB PO SCH (09:00)
[2018-05-24] MEDS ORDERED: Hydrochlorothiazide 25 MG TAB PO SCH (09:00)
[2018-05-24] MEDS ORDERED: Prevnar 13-Val Conj/PF 0.5 ML SYRINGE IM ONE (09:00)
[2018-05-24] MEDS: ICOSAPENT ETHYL (VASCEPA) PO SCH ×2 (09:09→17:49)
[2018-05-24] MEDS ORDERED: Acetaminophen/Codeine 30-300mg Tablet PO PRN ×2 (10:33)
[2018-05-24] MEDS ORDERED: diphenhydrAMINE 50 MG/ML VIAL ONE (10:49)
[2018-05-24] MEDS: tiZANidine HCl 4 MG TAB PO SCH (11:41)
[2018-05-24] MEDS: Carvedilol 3.125 MG TAB PO SCH (11:41)
[2018-05-24] MEDS: metFORMIN 500 MG TAB PO SCH ×2 (11:48→17:49)
[2018-05-24] MEDS ORDERED: Bisacodyl 5 MG TAB PO PRN (12:31)
--- NOTE | 2018-05-24 12:56 | RAD ---
SINGLE VIEW CHEST: HISTORY: Pacemaker placement. COMPARISON: 04/24/2018 FINDINGS: A single view of the chest shows an enlarged but stable cardiomediastinal silhouette. The patient is status post sternotomy. There is a left subclavian pacemaker with its leads in the right atrium and ventricle. NO pneumothorax is seen. There is no evidence of consolidation, mass, or pleural effusi on. IMPRESSION: Status post pacemaker placement without evidence of complication. POS: LEIGHA
[2018-05-24] MEDS ORDERED: Iopamidol 370 76% 50 ML VIAL FS ONE (13:10)
[2018-05-24] MEDS ORDERED: Cephalexin 250 MG CAP PO SCH (15:00)
[2018-05-24 18:14] VITALS: BP 135/64; TEMP 98
--- NOTE | 2018-05-25 05:33 | DIS ---
DATE OF ADMISSION: 05/23/2018 DATE OF DISCHARGE: 05/24/2018 CONDITION ON DISCHARGE: Stable. ADMITTING DIAGNOSES: Nonsustained ventricular tachycardia, ischemic cardiomyopathy. PROCEDURES PERFORMED: Include EP study and VT ablation, dual-chamber ICD implant. HISTORY OF PRESENT ILLNESS: Mr. Calix is a very pleasant 73-year-old with a history of congestive heart failure, ischemic cardiomyopathy, bypass surgery, LVEF approximately 40% with frequent PVCs and nonsustained ventricular tachycardia that are well documented with prior monitors. He has substantial dyspnea and was brought in as an outpatient electively for EP study and ablation for his very frequent PVCs. On 05/23/2018, he underwent EP study and was found to have very frequent nonsustained ventricular tachycardia episodes. He was found to have frequent right bundle left axis morphology PVCs that were mapped to the left basal inferior area adjacent to the papillary muscle, and underwent successful ablation. He was inducible for ventricular tachycardia and persisting atrial fibrillation was seen throughout the case, which eventually required IV amiodarone bolus and external cardioversion. At that point, the plan was to proceed with an ICD. However, patient had received moderate amount of heparin and was at risk for bleeding complication with any type of incision and ICD implant, so decision was to keep him in observation overnight with ICD implant the following morning. On 05/24/2018, he was taken to the senior label specialist and underwent a dual-chamber ICD implantation as a prophylactic device for his ventricular tachycardia as well as for his atrial arrhythmias that were seen. He has tolerated his procedures well without any complications. He was on 2 hours of bed rest, and since then is tolerating p.o. intake, ambulating normally, and eager to discharge home. His vital signs are stable. He does not have any bleeding complications at the groin or device insertion site. SUBJECTIVE: The patient is feeling well today. He has some mild discomfort at his ICD implant site, but denies any bleeding complications at either the pacemaker site or the groin site. He denies any heart racing, palpitations, chest pain, pressure, syncope, near syncope, stroke, stroke-like symptoms, and is eager to go home. OBJECTIVE: VITAL SIGNS: Most recent vital signs; temperature 97.6 degrees Fahrenheit, pulse 77, blood pressure 147/67, respirations 20, oxygen is 97% on room air. GENERAL: The patient is alert and oriented. Speech is clear. Affect is appropriate. NECK: Supple without jugular venous distention. LUNGS: Clear to auscultation bilaterally. Respirations are even and unlabored. Heart rate is irregularly irregular without significant murmurs, rubs, or gallops. There is an incision in the left infraclavicular fossa, where his dual-chamber ICD was just placed this morning. The edges are well approximated with some mild bruising and swelling, but overall incision in his bilateral groin sites are stable without signs of hematoma or bleeding complication. EXTREMITIES: Warm and dry to touch without clubbing, cyanosis, or edema. NEUROLOGIC: Grossly intact and nonfocal. The patient is morbidly obese. DISCHARGE MEDICATIONS: Resume: 1. NovoLog 18 units subcu b.i.d. 2. Lantus 50 units subcu b.i.d. 3. Tizanidine 2 mg p.o. b.i.d. 4. Tramadol extended release 300 mg p.o. daily. 5. Metformin 1000 mg p.o. b.i.d. 6. Quinapril 40 mg p.o. daily. 7. Trental 400 mg p.o. t.i.d. 8. Vascepa 2 g p.o. b.i.d. 9. Glipizide 10 mg p.o. b.i.d. 10. Hydrochlorothiazide 25 mg p.o. daily. 11. Fenofibrate 145 mg p.o. q.p.m. 12. Carvedilol 3.125 mg p.o. b.i.d. 13. Aspirin 325 mg p.o. daily. New prescription of cephalexin 500 mg p.o. t.i.d. x7 days was electronically sent to his pharmacy post device implant. DISCHARGE INSTRUCTIONS: 1. Monitor groin sites for signs of bleeding complications or hematoma. If concern for bleeding is seen, then apply manual pressure for 15 minutes. If unsuccessful resolving hematoma, then contact [facility] or call 911 and seek emergent attention. 2. No soaking baths or lifting more than 15 pounds until ICD implant site is well healed. 3. No lifting elbow above shoulder x2 weeks. 4. Take antibiotic Keflex x7 days and contact [facility] with any concern for signs of infection at the device implant site. 5. Wound check with [facility] in 10 to 14 days. He will be called to schedule an appointment. 6. Otherwise, resume home medications as previously taken. Job ID: [id number]
== END 2018-05-24 18:15 | disposition home or self-care (01) ==
LOC: CCL 08:54 → UNDOADMIN 17:19 → 2NO 17:19 → CCL 05-24 18:15 → UNDODISIN 05-24 18:15
PROVIDERS: ATTEND Internal Medicine Cardiovascular Disease
PROC: 02583ZZ Destruction of Conduction Mechanism, Percutaneous Approach (ICD-10-PCS; principal; 2018-05-23)
PROC: 02K83ZZ Map Conduction Mechanism, Percutaneous Approach (ICD-10-PCS; 2018-05-23)
PROC: 4A023FZ Measurement of Cardiac Rhythm, Percutaneous Approach (ICD-10-PCS; 2018-05-23)
PROC: 4A0234Z Measurement of Cardiac Electrical Activity, Percutaneous Approach (ICD-10-PCS; 2018-05-23)
PROC: 0JH608Z Insertion of Defibrillator Generator into Chest Subcutaneous Tissue and Fascia, Open Approach (ICD-10-PCS; 2018-05-24)
PROC: 02H63KZ Insertion of Defibrillator Lead into Right Atrium, Percutaneous Approach (ICD-10-PCS; 2018-05-24)
PROC: 02HK3KZ Insertion of Defibrillator Lead into Right Ventricle, Percutaneous Approach (ICD-10-PCS; 2018-05-24)
DX: I11.0 Hypertensive heart disease with heart failure (principal); I50.22 Chronic systolic (congestive) heart failure; I25.5 Ischemic cardiomyopathy; I47.2 Ventricular tachycardia; I48.1 Persistent atrial fibrillation; E78.5 Hyperlipidemia, unspecified; E11.51 Type 2 diabetes mellitus with diabetic peripheral angiopathy without gangrene; E66.9 Obesity, unspecified; Z68.35 Body mass index [BMI] 35.0-35.9, adult; Z79.4 Long term (current) use of insulin; Z79.899 Other long term (current) drug therapy; Z88.1 Allergy status to other antibiotic agents; Z95.1 Presence of aortocoronary bypass graft
CPT/HCPCS: 33249; 36005; 36415; 36416; 71045; 75820; 76942; 80048; 81001; 85025; 85347; 85610; 85730; 92960; 93005; 93010; 93623; 93654; 93662; 99152; 99153; C1721; C1730; C1769; C1777; C1898; J0282; J0690; J1200; J1265; J1644; J2250; J2704; J2720; J3010; Q9967

== ENCOUNTER 2019-08-15 10:51 | Inpatient (IN) | payer MEDICARE, MEDICAID, OTHER ==
[2019-08-15] MEDS ORDERED: Acetaminophen 500 MG TAB ONE (11:22)
[2019-08-15] MEDS ORDERED: cefTRIAXone\\ROCEPHIN 1 GM VIAL ONE (11:25)
[2019-08-15] MEDS ORDERED: Azithromycin 500 MG VIAL ONE (11:25)
[2019-08-15 11:45] LABS: Mean Corpuscular HGB CONC 34.5 g/dL (32.0-36.0); Mean Corpuscular Volume 86.9 fL (78.0-98.0); Mean Platelet Volume 9.8 fL (7.4-10.4); Platelet Count 175 thou/uL (130-400); RBC Distribution Width 14.7 % (11.5-14.5); Red Blood Cell (RBC) Count 4.67 mill/uL (4.70-6.10); White Blood Cell (WBC) Count 16.6 thou/uL (4.8-10.8)
[2019-08-15 11:47] LABS: Bacteria/HPF 3+ HPF (None Seen); Bilirubin Negative (Negative); Blood, Urine 1+ (Negative); Clarity Clear (Clear); Glucose, Urine (Dipstick) Greater than 1000 mg/dL (Negative); Leukocyte 500 Leu/uL (Negative); Nitrite 1+ (Negative); Protein, Urine (Dipstick) 50 mg/dL (Neg-Trace); Squamous Epithelial 0-3 HPF (0-3); Urobilinogen Normal mg/dL (Less than 2); WBC/HPF Greater than 50 HPF (0-3)
--- NOTE | 2019-08-15 11:57 | RAD ---
EXAM: XR Chest 1 View Portable PROVIDED CLINICAL HISTORY: Fever COMPARISON: 05/24/2018 FINDINGS: Cardiac silhouette remains enlarged. Median sternotomy changes are again seen. Left subclavian cardia c pacing device is again noted with lead tips overlying expected locations of RA and RV. Evaluation is limited by patient body habitus. No definite focal consolidation or pneumothorax evident. Blunting of the left costophrenic angle cannot be excluded. Right costophrenic angle appears sharp. IMPRESSION: Possible left pleural fluid.
[2019-08-15 12:03] LABS: Band 30 % (5-11); Monocytes 3 % (0-10); Reactive Lymphocytes 4 % (0-10)
[2019-08-15 12:06] LABS: Anion Gap 12 mmol/L (10-20); BUN (Urea Nitrogen) 32 mg/dL (8.4-25.7); Calc. Creatinine Clearance 0 mL/min (70-130); Calcium 9.5 mg/dL (7.8-10.44); Carbon Dioxide 25 mmol/L (23-31); Chloride 102 mmol/L (98-107); Estimated GFR-MDRD 55; Glucose 402 mg/dL (83-110); Potassium 4.2 mmol/L (3.5-5.1); Sodium 135 mmol/L (136-145)
[2019-08-15] MEDS ORDERED: Vancomycin 1 GM/200 ML BAG ONE (13:11)
[2019-08-15 14:49] VITALS: BMI 38.2
[2019-08-15 14:59] LABS: Lactic Acid 2.1 mmol/L (0.5-2.2)
[2019-08-15] MEDS ORDERED: Sodium Chloride 0.9% 1,000 ML IV SCH (15:05)
[2019-08-15] MEDS ORDERED: Insulin Regular 300 UNITS/3 ML VIAL SC PRN (19:02)
[2019-08-15] MEDS ORDERED: Dextrose 50% Abboject 50 ML SYRINGE IVP PRN (19:02)
[2019-08-15] MEDS ORDERED: Dextrose 5% in Water 1,000 ML IV PRN (19:02)
[2019-08-15] MEDS ORDERED: Ondansetron ODT 4 MG TAB PO PRN (19:08)
--- NOTE | 2019-08-15 20:19 | HP ---
CHIEF COMPLAINT ON ADMISSION: Left-sided pyelonephritis. HISTORY OF PRESENT ILLNESS: The patient is a 74-year-old male, who has a 2-week history of gradually increasing left flank pain and fever. He finally on the day of admission was so confused. He was walking around his house naked when his family found him and brought him to the emergency room. His temperature in the ER had gotten as high as 103.1. The patient was immediately begun on IV fluid resuscitation. Blood cultures were taken. He denied any history of exposure to anyone with COVID-19. He has had no recent travel. He had been isolated at his house as his illness continued to worsen. The patient was, after cultures were taken, begun on Rocephin and vancomycin. Lab work gradually returned revealing high white counts in his urine, his blood with a left shift, and it was determined that he had pyelonephritis at this point. Chest x-ray was fairly unremarkable. There had only been an occasional history of a cough. At this point, Dr. Sosa was contacted for admission. PAST MEDICAL HISTORY: Significant for coronary artery disease, gastrointestinal disease, hepatitis C, hyperlipidemia, hypertriglyceridemia, hypertension, very poorly-compliant insulin-dependent diabetic, and morbid obesity. He has gastrointestinal reflux disease, chronic low back pain, and he had most recently been hospitalized in May 2018, with nonsustained ventricular tachycardia and ischemic cardiomyopathy. He also has peripheral vascular disease. PAST SURGICAL HISTORY: Includes coronary artery bypass graft surgery x5 vessels, hernia repair, and back surgery. He has had pacemaker placement. PSYCHIATRIC HISTORY: Negative. SOCIAL HISTORY: He lives alone at home. No history of tobacco, alcohol, or illicit drug use. FAMILY HISTORY: Significant for diabetes and hypertension among many family members, but no history of sudden cardiac . ALLERGIES: HE IS ALLERGIC TO SULFA/BACTRIM. MEDICATIONS ON ADMISSION: Include: 1. Tramadol extended-release 200 mg tablets. He will take a whole one in the morning and a half in the evening. 2. Glipizide 10 mg b.i.d. 3. Hydrochlorothiazide 25 mg daily. 4. Lantus 60 units subcutaneously twice a day. 5. Metformin 1000 mg b.i.d. 6. Quinapril 40 mg daily. 7. Trental 400 mg t.i.d. 8. Vascepa 1 g, he takes 2 at least b.i.d. 9. Tizanidine 4 mg b.i.d. 10. Carvedilol 3.125 mg b.i.d. 11. Atorvastatin 10 mg at bedtime. 12. Xarelto 15 mg b.i.d. 13. Humalog 25 units subcutaneously with each meal 3 times a day. REVIEW OF SYSTEMS: CONSTITUTIONAL: Significant for fatigue and fever. HEENT: Denies drainage or sores in eyes, ears, nose, or throat. CHEST: Denies shortness of breath. Has an occasional cough. CARDIOVASCULAR: Denies palpitations or chest pain. GI: Has had some nausea, but no vomiting or diarrhea. MUSCULOSKELETAL: He has had significant left flank and back pain, but no major muscle group pain in the lower extremities or arms. : Denies blood in urine or stool, but has had urinary frequency and burning. SKIN: No new rashes or lesions. LYMPHATICS: No new areas of edema or mariaa enlargement. NEUROLOGIC: He has had significant confusion, but denies headaches or blurred vision. His confusion was usually associated with fever. PHYSICAL EXAMINATION: VITAL SIGNS: At the time of admission, pulse was 110, blood pressure 155/71, temperature 103.1 orally, O2 saturation 100% on 2 L and 97% on room air. GENERAL: This is an obese [place] male, alert, currently oriented, and cooperative. HEENT: Normocephalic and atraumatic. Pupils are equal, round, and reactive to light with arcus senilis bilaterally, diminished reactivity. Pupils are 1 to 2 mm bilaterally. No icterus. The TMs, nares, and pharynx are clear. NECK: Supple. CHEST: Clear to auscultation. HEART: Regular rate and rhythm with the pulse tachycardia 110. ABDOMEN: Obese. Unable to appreciate organomegaly. Nontender. He has left-sided CVA tenderness at this time on the back. : Deferred. Normal uncircumcised male externally. RECTAL: Deferred. EXTREMITIES: Without clubbing, cyanosis, or edema. Normal range of motion present. SKIN: With diffuse bruising, typical of anticoagulants. No acute bruising otherwise. The turgor is fair. NEUROLOGIC: Cranial nerves are currently intact. Gait and cerebellar function are intact. Sensory exam is grossly normal. Mental status is at baseline and nonfocal. LABORATORY DATA: His lab work on admission: WBCs 16,600, hemoglobin 14, hematocrit 40.6, platelet 175, differential with 30 bands. Sodium 135, potassium 4.2, chloride 102, CO2 of 25, BUN 32, creatinine 1.25 with a GFR 55, glucose 402 on arrival, followup glucose 374. Lactic acid 2.4 on arrival, now down to 2.1 three hours later. Calcium 9.5. Urinary analysis showed greater than 1000 on the glucose, ketones negative, nitrites 1+, leukocyte esterase 500 with wbc's greater than 50, and bacteria 3+. Chest x-ray shows possible left-sided effusion, but no acute infiltrates. Pacemaker in appropriate location. Previous sternotomy with well-healed closure. ASSESSMENT: 1. Left-sided pyelonephritis with sepsis. 2. Insulin-dependent diabetes, poor control. 3. History of coronary artery disease. PLAN: Plan will be IV fluids, IV antibiotics. We will await cultures for more definitive antibiotic treatment. We will continue currently his Rocephin at 1 g q.12. We will provide Tylenol for temperature control. We will serially re-evaluate the patient. Job ID: [id number]
[2019-08-15] MEDS: Carvedilol 3.125 MG TAB PO SCH (21:11)
[2019-08-15] MEDS: tiZANidine HCl 4 MG TAB PO SCH (21:11)
[2019-08-15] MEDS: cefTRIAXone\\ROCEPHIN 1 GM in Sodium Chloride 0.9% 100 ML IVPB SCH (21:11)
[2019-08-15] MEDS: Atorvastatin Calcium 10 MG TAB PO SCH (21:11)
[2019-08-15] MEDS: Acetaminophen 325 MG TAB PO PRN (21:11)
[2019-08-15] MEDS: Icosapent Ethyl 1 GM CAPSULE PO SCH (21:11)
[2019-08-15] MEDS: Sodium Chloride 0.9% 1,000 ML IV SCH (21:12)
[2019-08-15] MEDS: Insulin Glargine 60 UNITS in Pre-Filled Syringe 1 EACH SC SCH (21:12)
[2019-08-15] MEDS ORDERED: cefTRIAXone\\ROCEPHIN 1 GM in Sodium Chloride 0.9% 100 ML IVPB SCH (23:00)
[2019-08-15] MEDS: traMADol HCl 50 MG TAB PO SCH (23:52)
[2019-08-16] MEDS: traMADol HCl 50 MG TAB PO SCH ×4 (05:26→23:30)
[2019-08-16 05:29] LABS: #Eosinphils 0.1 thou/uL (0.0-0.7); #Lymphocytes 0.9 thou/uL (1.20-3.40); #Monocytes 0.7 thou/uL (0.11-0.59); #Neutrophils 9.6 thou/uL (1.40-6.50); %Basophils 0.3 % (0.0-1.0); %Eosinophils 1.2 % (0.0-10.0); %Lymphocytes 7.8 % (21.0-51.0); %Monocytes 5.7 % (0.0-10.0); Hemoglobin 11.8 g/dL (14.0-18.0); Mean Corpuscular HGB CONC 34.3 g/dL (32.0-36.0); Mean Corpuscular Hemoglobin 30.1 pg (27.0-31.0); Mean Corpuscular Volume 87.7 fL (78.0-98.0); Mean Platelet Volume 8.9 fL (7.4-10.4); Platelet Count 153 thou/uL (130-400); RBC Distribution Width 14.5 % (11.5-14.5); Red Blood Cell (RBC) Count 3.94 mill/uL (4.70-6.10); White Blood Cell (WBC) Count 11.3 thou/uL (4.8-10.8)
[2019-08-16 05:51] LABS: Anion Gap 12 mmol/L (10-20); BUN (Urea Nitrogen) 24 mg/dL (8.4-25.7); Calc. Creatinine Clearance 122 mL/min (70-130); Calcium 8.5 mg/dL (7.8-10.44); Carbon Dioxide 23 mmol/L (23-31); Chloride 105 mmol/L (98-107); Estimated GFR-MDRD 84; Glucose 214 mg/dL (83-110); Potassium 4.1 mmol/L (3.5-5.1); Sodium 136 mmol/L (136-145)
[2019-08-16] MEDS: Sodium Chloride 0.9% 1,000 ML IV SCH ×6 (06:27→20:13)
[2019-08-16] MEDS: Icosapent Ethyl 1 GM CAPSULE PO SCH ×2 (08:26→20:15)
[2019-08-16] MEDS: Carvedilol 3.125 MG TAB PO SCH ×3 (08:27→20:15)
[2019-08-16] MEDS: Rivaroxaban 15 MG TAB PO SCH ×2 (08:27→16:19)
[2019-08-16] MEDS: glipiZIDE 10 MG TAB PO SCH ×2 (08:27→16:19)
[2019-08-16] MEDS: tiZANidine HCl 4 MG TAB PO SCH ×2 (08:27→20:16)
[2019-08-16] MEDS: metFORMIN 500 MG TAB PO SCH ×2 (08:27→16:19)
[2019-08-16] MEDS: Insulin Glargine 60 UNITS in Pre-Filled Syringe 1 EACH SC SCH ×2 (08:28→20:55)
[2019-08-16] MEDS: HumaLOG 300 UNITS/3 ML VIAL SC SCH ×4 (08:29→16:34)
[2019-08-16] MEDS: cefTRIAXone\\ROCEPHIN 1 GM in Sodium Chloride 0.9% 100 ML IVPB SCH ×2 (08:36→20:17)
[2019-08-16] MEDS: Atorvastatin Calcium 10 MG TAB PO SCH (20:14)
[2019-08-17] MEDS: Sodium Chloride 0.9% 1,000 ML IV SCH ×2 (02:33→03:00)
[2019-08-17 05:17] LABS: #Eosinphils 0.2 thou/uL (0.0-0.7); #Lymphocytes 1.1 thou/uL (1.20-3.40); #Monocytes 0.8 thou/uL (0.11-0.59); %Basophils 0.3 % (0.0-1.0); %Eosinophils 1.7 % (0.0-10.0); %Lymphocytes 12.2 % (21.0-51.0); %Monocytes 8.7 % (0.0-10.0); %Neutrophils 77.1 % (42.0-75.0); Mean Corpuscular HGB CONC 34.1 g/dL (32.0-36.0); Mean Corpuscular Hemoglobin 30.1 pg (27.0-31.0); Mean Corpuscular Volume 88.2 fL (78.0-98.0); Mean Platelet Volume 8.8 fL (7.4-10.4); Platelet Count 156 thou/uL (130-400); RBC Distribution Width 14.8 % (11.5-14.5); Red Blood Cell (RBC) Count 3.99 mill/uL (4.70-6.10); White Blood Cell (WBC) Count 9.1 thou/uL (4.8-10.8)
[2019-08-17 05:22] LABS: Hemoglobin A1c 7.3 % (4.0-6.0)
[2019-08-17] MEDS: Acetaminophen 325 MG TAB PO PRN (05:30)
[2019-08-17] MEDS: traMADol HCl 50 MG TAB PO SCH ×4 (05:37→17:50)
[2019-08-17 05:42] LABS: Anion Gap 12 mmol/L (10-20); BUN (Urea Nitrogen) 15 mg/dL (8.4-25.7); Calc. Creatinine Clearance 138 mL/min (70-130); Calcium 8.7 mg/dL (7.8-10.44); Carbon Dioxide 23 mmol/L (23-31); Cardiac Risk 3.6 (Less than 4.5); Chloride 108 mmol/L (98-107); Cholesterol 102 mg/dl (< 200 Desired); Estimated GFR-MDRD Greater than 90; Glucose 105 mg/dL (83-110); HDL Cholesterol 28 mg/dL (>60 Neg Risk); LDL Cholesterol, Calculated 50 mg/dL; Potassium 3.8 mmol/L (3.5-5.1); Sodium 139 mmol/L (136-145); Triglycerides 119 mg/dL (Less than 150)
[2019-08-17] MEDS: cefTRIAXone\\ROCEPHIN 1 GM in Sodium Chloride 0.9% 100 ML IVPB SCH ×2 (08:35→20:29)
[2019-08-17] MEDS: glipiZIDE 10 MG TAB PO SCH ×2 (08:36→17:07)
[2019-08-17] MEDS: metFORMIN 500 MG TAB PO SCH ×2 (08:36→17:07)
[2019-08-17] MEDS: tiZANidine HCl 4 MG TAB PO SCH ×2 (08:36→20:27)
[2019-08-17] MEDS: Icosapent Ethyl 1 GM CAPSULE PO SCH ×2 (08:40→20:28)
[2019-08-17] MEDS: Rivaroxaban 15 MG TAB PO SCH ×2 (08:40→17:08)
[2019-08-17] MEDS: Insulin Glargine 60 UNITS in Pre-Filled Syringe 1 EACH SC SCH ×2 (08:41→21:02)
[2019-08-17] MEDS: HumaLOG 300 UNITS/3 ML VIAL SC SCH ×3 (08:42→17:29)
[2019-08-17] MEDS: Carvedilol 3.125 MG TAB PO SCH ×2 (09:12→20:28)
[2019-08-17] MEDS: Atorvastatin Calcium 10 MG TAB PO SCH (20:28)
[2019-08-18] MEDS: traMADol HCl 50 MG TAB PO SCH ×2 (00:14→05:25)
[2019-08-18] MEDS: Acetaminophen 325 MG TAB PO PRN (00:15)
[2019-08-18] MEDS: tiZANidine HCl 4 MG TAB PO SCH (08:25)
[2019-08-18] MEDS: glipiZIDE 10 MG TAB PO SCH (08:25)
[2019-08-18] MEDS: Carvedilol 3.125 MG TAB PO SCH (08:25)
[2019-08-18] MEDS: metFORMIN 500 MG TAB PO SCH (08:26)
[2019-08-18] MEDS: cefTRIAXone\\ROCEPHIN 1 GM in Sodium Chloride 0.9% 100 ML IVPB SCH (08:31)
[2019-08-18] MEDS: Insulin Glargine 60 UNITS in Pre-Filled Syringe 1 EACH SC SCH (08:35)
[2019-08-18] MEDS: Icosapent Ethyl 1 GM CAPSULE PO SCH (08:37)
[2019-08-18] MEDS: Rivaroxaban 15 MG TAB PO SCH (08:41)
[2019-08-18] MEDS: HumaLOG 300 UNITS/3 ML VIAL SC SCH (08:55)
[2019-08-18 10:38] VITALS: BP 165/75; TEMP 98.6
== END 2019-08-18 11:42 | disposition home or self-care (01) | DRG 872 ==
LOC: ERS 10:51 → T4-B 12:55
PROVIDERS: ADMIT Specialist; ATTEND Specialist
DX: A41.51 Sepsis due to Escherichia coli [E. coli] (principal); N12 Tubulo-interstitial nephritis, not specified as acute or chronic; I25.10 Atherosclerotic heart disease of native coronary artery without angina pectoris; E78.5 Hyperlipidemia, unspecified; I10 Essential (primary) hypertension; E11.65 Type 2 diabetes mellitus with hyperglycemia; K21.9 Gastro-esophageal reflux disease without esophagitis; E66.01 Morbid (severe) obesity due to excess calories; G89.29 Other chronic pain; M54.5 Low back pain; I25.5 Ischemic cardiomyopathy; E11.51 Type 2 diabetes mellitus with diabetic peripheral angiopathy without gangrene; Z91.14 Patient's other noncompliance with medication regimen; Z68.38 Body mass index [BMI] 38.0-38.9, adult; Z88.1 Allergy status to other antibiotic agents; Z88.2 Allergy status to sulfonamides; Z79.899 Other long term (current) drug therapy; Z79.4 Long term (current) use of insulin; Z79.01 Long term (current) use of anticoagulants
CPT/HCPCS: 36415; 36416; 71045; 80048; 80061; 81003; 81015; 83036; 83605; 85025; 87040; 87077; 87086; 87149; 87186; 87633; 96365; 96366; 96367; J0456; J0696; J1815; J3370; J3490; U0001

== ENCOUNTER 2020-01-30 10:28 | Outpatient (CLI) | payer MEDICARE, MEDICAID ==
--- NOTE | 2020-01-30 12:03 | CT ---
CT ABDOMEN AND PELVIS WITH AND WITHOUT IV CONTRAST 01/30/2020 CLINICAL INFORMATION: Left flank mass. Patient having left-sided abdominal pain, constipation, and frequent urination. COMPARISON: 02/10/2015. Technique: Multiple contiguous axial CT images are obtained through the abdomen and pelvis with IV contrast. Cor onal reformatted images are provided. FINDINGS: Lower Chest: AICD leads are partially imaged. Calcified right infrahilar lymph nodes are seen. Minima l bibasilar densities are seen which may represent minimal atelectasis or scarring. Vessels: Minimal vascular calcifications are seen in the abdominal aorta. The abdominal aorta is norm al in caliber. Abdomen: Portal vein:Patent Gallbladder: Filled with multiple gallbladder calculi. Liver: within normal limits. Spleen: within normal limits. Pancreas: There are scattered calcifications in the pancreas which could be sequela of prior pancreat itis. This is a stable finding. Adrenals: within normal limits. Kidneys: No renal or ureteral calculi are seen bilaterally. Kidneys have a normal CT appearance bilat erally, and there is no hydronephrosis. Bowel: There is colonic diverticulosis involving the ascending colon. Appendix: The appendix is visualized and normal in caliber. Peritoneum: No ascites or free air; no fluid collection. Mesentery and Retroperitoneum: There is a mildly enlarged lymph node measures 1.3 cm in short axis di mension and a left perinephric location at the level of the aortic bifurcation. No additional enlarged lymph nodes are seen. This is overall nonspecific. Abdominal Wall: Minimal stranding in the most anterior adipose soft tissues of the upper abdominal wa ll. There is no adjacent skin thickening. This could just represent minimal contusion in this region. Clinical correlation is suggested. Pelvis: Reproductive Organs: Prostate calcifications are visualized. Bladder: Incomplete distended but otherwise grossly within normal limits for degree of distention. Bones: 666 multilevel degenerative changes are present in the spine. No suspicious lytic or sclerotic osseous lesions are identified. IMPRESSION: 1. Nonspecific mildly enlarged left para-aortic lymph node at the level aortic bifurcation. No additi onal enlarged lymph node is seen. 2. Cholelithiasis. 3. No acute findings in the abdomen or pelvis. 4. No renal or ureteral calculi are seen bilaterally, and there is no enhancing renal mass appreciate d. No left flank mass is visualized as indicated by history.
[2020-01-30] MEDS ORDERED: Iopamidol 370 76% 100 ML VIAL ONE (15:10)
== END 2020-01-30 10:29 | disposition home or self-care (01) ==
LOC: BICCT 10:28
PROVIDERS: ATTEND Specialist
DX: R19.00 Intra-abdominal and pelvic swelling, mass and lump, unspecified site (principal); K80.20 Calculus of gallbladder without cholecystitis without obstruction; R59.0 Localized enlarged lymph nodes
CPT/HCPCS: 74178; Q9967

== ENCOUNTER 2021-03-23 12:26 | Outpatient (CLI) | payer MEDICARE, MEDICAID | END 2021-03-23 12:27 | disposition home or self-care (01) | LOC: BICRAD 12:26 | PROVIDERS: ATTEND Nurse Practitioner Family | DX: R10.9 Unspecified abdominal pain (principal); R14.0 Abdominal distension (gaseous) | CPT/HCPCS: 74022 ==

== ENCOUNTER 2021-04-05 17:48 | Emergency (ER) | payer MEDICARE, MEDICAID ==
[2021-04-05 19:49] LABS: #Eosinphils 0.2 thou/uL (0.0-0.7); #Lymphocytes 2.3 thou/uL (1.20-3.40); #Monocytes 0.9 thou/uL (0.11-0.59); #Neutrophils 6.8 thou/uL (1.40-6.50); %Basophils 0.1 % (0.0-1.0); %Eosinophils 1.7 % (0.0-10.0); %Lymphocytes 22.8 % (21.0-51.0); %Monocytes 8.7 % (0.0-10.0); %Neutrophils 66.8 % (42.0-75.0); Hemoglobin 13.1 g/dL (14.0-18.0); Mean Corpuscular HGB CONC 33.7 g/dL (32.0-36.0); Mean Corpuscular Hemoglobin 30.6 pg (27.0-31.0); Mean Corpuscular Volume 90.9 fL (78.0-98.0); Mean Platelet Volume 8.5 fL (7.4-10.4); Platelet Count 181 thou/uL (130-400); RBC Distribution Width 14.1 % (11.5-14.5); Red Blood Cell (RBC) Count 4.28 mill/uL (4.70-6.10); White Blood Cell (WBC) Count 10.1 thou/uL (4.8-10.8)
[2021-04-05 20:13] LABS: ALT (SGPT) 19 U/L (8-55); AST (SGOT) 16 U/L (5-34); Albumin 3.7 g/dL (3.4-4.8); Alkaline Phosphatase 90 U/L (40-110); Anion Gap 12 mmol/L (10-20); BUN (Urea Nitrogen) 21 mg/dL (8.4-25.7); Bilirubin, Total 0.4 mg/dL (0.2-1.2); Calc. Creatinine Clearance 0 mL/min (70-130); Calcium 9.7 mg/dL (7.8-10.44); Carbon Dioxide 29 mmol/L (23-31); Chloride 101 mmol/L (98-107); Globulin 3.3 g/dL (2.4-3.5); Glucose 103 mg/dL (83-110); Sodium 138 mmol/L (136-145)
== END 2021-04-05 21:00 | disposition home or self-care (01) ==
LOC: ERS 17:48
DX: L03.116 Cellulitis of left lower limb (principal); E78.2 Mixed hyperlipidemia; I10 Essential (primary) hypertension; E66.9 Obesity, unspecified
CPT/HCPCS: 36415; 80053; 85025; 99281

== ENCOUNTER 2021-04-16 12:12 | Outpatient (CLI) | payer MEDICARE, MEDICAID | END 2021-04-16 12:13 | disposition home or self-care (01) | LOC: BICRAD 12:12 → BICULT 12:13 | PROVIDERS: ATTEND Specialist | DX: R10.9 Unspecified abdominal pain (principal); K80.20 Calculus of gallbladder without cholecystitis without obstruction | CPT/HCPCS: 74019; 76705 ==

== ENCOUNTER 2021-05-26 09:01 | Emergency (ER) | payer MEDICARE, MEDICAID ==
[2021-05-26 10:12] LABS: #Eosinphils 0.1 thou/uL (0.0-0.7); #Lymphocytes 0.6 thou/uL (1.20-3.40); #Monocytes 0.4 thou/uL (0.11-0.59); #Neutrophils 8.6 thou/uL (1.40-6.50); %Basophils 0.2 % (0.0-1.0); %Eosinophils 0.8 % (0.0-10.0); %Lymphocytes 5.9 % (21.0-51.0); %Monocytes 3.8 % (0.0-10.0); %Neutrophils 89.3 % (42.0-75.0); Hemoglobin 13.7 g/dL (14.0-18.0); Mean Corpuscular HGB CONC 33.6 g/dL (32.0-36.0); Mean Corpuscular Hemoglobin 29.9 pg (27.0-31.0); Mean Platelet Volume 9.6 fL (7.4-10.4); Platelet Count 138 thou/uL (130-400); RBC Distribution Width 14.1 % (11.5-14.5); Red Blood Cell (RBC) Count 4.58 mill/uL (4.70-6.10); White Blood Cell (WBC) Count 9.7 thou/uL (4.8-10.8)
[2021-05-26 10:26] LABS: ALT (SGPT) 24 U/L (8-55); AST (SGOT) 16 U/L (5-34); Albumin 3.4 g/dL (3.4-4.8); Alkaline Phosphatase 78 U/L (40-110); Anion Gap 13 mmol/L (10-20); BUN (Urea Nitrogen) 29 mg/dL (8.4-25.7); Bilirubin, Total 0.8 mg/dL (0.2-1.2); Calc. Creatinine Clearance 0 mL/min (70-130); Calcium 9.2 mg/dL (7.8-10.44); Carbon Dioxide 27 mmol/L (23-31); Chloride 98 mmol/L (98-107); Glucose 96 mg/dL (83-110); Potassium 4.2 mmol/L (3.5-5.1); Protein, Total 6.4 g/dL (5.8-8.1); Sodium 134 mmol/L (136-145)
[2021-05-26 10:37] LABS: Bacteria/HPF 4+ HPF (None Seen); Bilirubin Negative (Negative); Blood, Urine 1+ (Negative); Clarity Clear (Clear); Glucose, Urine (Dipstick) Normal (Negative); Ketone, Urine Negative (Negative); Leukocyte 250 Leu/uL (Negative); Nitrite 2+ (Negative); Protein, Urine (Dipstick) 70 mg/dL (Neg-Trace); Specific Gravity, Urine 1.022 (1.002-1.036); Squamous Epithelial 0-3 HPF (0-3); Urobilinogen Normal mg/dL (Less than 2)
[2021-05-26 10:43] LABS: CKMB 1.4 ng/mL (0-6.6)
[2021-05-26] MEDS ORDERED: cefTRIAXone\\ROCEPHIN 1 GM VIAL ONE (12:13)
== END 2021-05-26 13:09 | disposition home or self-care (01) ==
LOC: ERS 09:01
DX: N39.0 Urinary tract infection, site not specified (principal); R41.82 Altered mental status, unspecified; I10 Essential (primary) hypertension; E11.9 Type 2 diabetes mellitus without complications; I25.10 Atherosclerotic heart disease of native coronary artery without angina pectoris; E66.9 Obesity, unspecified; Z79.84 Long term (current) use of oral hypoglycemic drugs; Z79.899 Other long term (current) drug therapy
CPT/HCPCS: 51701; 70450; 71045; 80053; 81003; 81015; 82553; 84443; 84484; 85025; 93005; 96365; J0696

== ENCOUNTER 2021-12-17 10:07 | Inpatient (IN) | payer OTHER, MEDICAID ==
[2021-12-17] MEDS ORDERED: cefTRIAXone\\ROCEPHIN 2 GM VIAL ONE (10:57)
[2021-12-17 11:11] LABS: #Lymphocytes 1.5 thou/uL (1.20-3.40); #Monocytes 1.5 thou/uL (0.11-0.59); #Neutrophils 12.4 thou/uL (1.40-6.50); %Basophils 0.1 % (0.0-1.0); %Eosinophils 0.2 % (0.0-10.0); %Lymphocytes 9.7 % (21.0-51.0); %Monocytes 9.6 % (0.0-10.0); %Neutrophils 80.3 % (42.0-75.0); Hemoglobin 9.4 g/dL (14.0-18.0); Mean Corpuscular HGB CONC 31.4 g/dL (32.0-36.0); Mean Corpuscular Volume 85.7 fL (78.0-98.0); Mean Platelet Volume 8.4 fL (7.4-10.4); Platelet Count 229 thou/uL (130-400); RBC Distribution Width 14.9 % (11.5-14.5); Red Blood Cell (RBC) Count 3.49 mill/uL (4.70-6.10); White Blood Cell (WBC) Count 15.4 thou/uL (4.8-10.8)
[2021-12-17 11:14] LABS: Bacteria/HPF 4+ HPF (None Seen); Bilirubin Negative (Negative); Blood, Urine 2+ (Negative); Clarity Turbid (Clear); Glucose, Urine (Dipstick) >=1000 mg/dL (Negative); Ketone, Urine Negative (Negative); Leukocyte 500 Leu/uL (Negative); Nitrite 2+ (Negative); Protein, Urine (Dipstick) 20 mg/dL (Neg-Trace); Specific Gravity, Urine 1.017 (1.002-1.036); Squamous Epithelial 0-3 HPF (0-3); Urobilinogen Normal mg/dL (Less than 2); WBC/HPF Greater than 50 HPF (0-3)
[2021-12-17 11:56] LABS: CKMB 5.9 ng/mL (0-6.6)
[2021-12-17 11:59] LABS: Albumin 3.5 g/dL (3.4-4.8); Alkaline Phosphatase 119 U/L (40-110); Bilirubin, Total 0.6 mg/dL (0.2-1.2); Calcium 8.4 mg/dL (7.8-10.44); Carbon Dioxide 22 mmol/L (23-31); Chloride 104 mmol/L (98-107); Globulin 2.6 g/dL (2.4-3.5); Glucose 90 mg/dL (83-110); Potassium 5.3 mmol/L (3.5-5.1); Protein, Total 6.1 g/dL (5.8-8.1); Sodium 137 mmol/L (136-145)
[2021-12-17 12:00] LABS: Calc. Creatinine Clearance 0 mL/min (70-130); Estimated GFR 24
[2021-12-17 12:01] LABS: BUN (Urea Nitrogen) 57 mg/dL (8.4-25.7)
[2021-12-17 12:02] LABS: ALT (SGPT) 49 U/L (8-55); AST (SGOT) 53 U/L (5-34); CK (CPK) 1063 U/L (30-200)
[2021-12-17 12:08] LABS: Anion Gap 16 mmol/L (10-20)
[2021-12-17 12:12] LABS: SARS-CoV-2 NAA Rapid Test Not Detected (NotDetected)
[2021-12-17] MEDS ORDERED: Heparin 1,000 UNITS/ML VIAL ONE (12:37)
[2021-12-17 12:45] LABS: Actual Bicarbonate (HCO3v) 24 mEq/L (22-28); Analyzer IN Cardio ER; Base Excess -2.7 mEq/L (-2.0 to +3.0); Calcium, Ionized (venous) 1.12 mmol/L (1.16-1.32); Chloride (VBG) 104 mmol/L (98-106); Hemoglobin (Hb) 10.4 g/dL (12.6-17.4); Potassium (VBG) 5.04 mmol/L (3.70-5.30); Sodium 134.5 mmol/L (133-146); pH (venous) 7.32 (7.32-7.43)
[2021-12-17] MEDS ORDERED: Calcium Gluc 4.6 MEQ/10 ML (100 MG/ML) ONE (12:50)
[2021-12-17] MEDS ORDERED: Aspirin Chewable 81 MG TAB ONE (12:50)
[2021-12-17 15:26] LABS: Troponin I 0.133 ng/mL (< 0.028)
[2021-12-17] MEDS ORDERED: Acetaminophen 325 MG TAB PO PRN (15:30)
[2021-12-17] MEDS ORDERED: Ondansetron PF 4 MG/2 ML Vial IVP PRN (15:30)
[2021-12-17] MEDS ORDERED: Ondansetron ODT 4 MG TAB SL PRN (15:30)
[2021-12-17] MEDS: Lactated Ringer's 1,000 ML IV SCH ×4 (15:32→23:35)
[2021-12-17 18:23] LABS: Troponin I 0.122 ng/mL (< 0.028)
[2021-12-17] MEDS ORDERED: Dextrose 50% Abboject 50 ML SYRINGE IVP PRN (19:15)
[2021-12-17] MEDS ORDERED: Dextrose 5% in Water 1,000 ML IV PRN (19:15)
[2021-12-17] MEDS: traMADol HCl 50 MG TAB PO PRN (20:13)
[2021-12-17] MEDS: Insulin Glargine 30 UNITS/0.3 ML VIAL SC SCH (21:50)
[2021-12-17] MEDS: Atorvastatin Calcium 10 MG TAB PO SCH (21:50)
[2021-12-17] MEDS: HumaLOG 300 UNITS/3 ML VIAL SC SCH (21:51)
[2021-12-17] MEDS: tiZANidine HCl 4 MG TAB PO SCH (21:51)
[2021-12-17] MEDS: Carvedilol 3.125 MG TAB PO SCH (21:51)
[2021-12-17] MEDS: Icosapent Ethyl 1 GM CAPSULE PO SCH (21:51)
[2021-12-18 04:45] LABS: #Eosinphils 0.3 thou/uL (0.0-0.7); #Monocytes 0.9 thou/uL (0.11-0.59); %Basophils 0.2 % (0.0-1.0); %Eosinophils 2.6 % (0.0-10.0); %Lymphocytes 8.9 % (21.0-51.0); %Monocytes 8.3 % (0.0-10.0); %Neutrophils 80.1 % (42.0-75.0); Hemoglobin 8.8 g/dL (14.0-18.0); Mean Corpuscular HGB CONC 31.4 g/dL (32.0-36.0); Mean Corpuscular Hemoglobin 27.5 pg (27.0-31.0); Mean Corpuscular Volume 87.4 fL (78.0-98.0); Mean Platelet Volume 8.7 fL (7.4-10.4); Platelet Count 202 thou/uL (130-400); RBC Distribution Width 14.9 % (11.5-14.5); Red Blood Cell (RBC) Count 3.22 mill/uL (4.70-6.10); White Blood Cell (WBC) Count 11.3 thou/uL (4.8-10.8)
[2021-12-18 05:12] LABS: Cardiac Risk 4.8 (Less than 4.5)
[2021-12-18] MEDS: Insulin Regular 300 UNITS/3 ML VIAL SC PRN (06:01)
[2021-12-18] MEDS: Lactated Ringer's 1,000 ML IV SCH ×3 (06:02→18:26)
[2021-12-18] MEDS: Carvedilol 3.125 MG TAB PO SCH ×2 (08:42→21:02)
[2021-12-18] MEDS: tiZANidine HCl 4 MG TAB PO SCH ×2 (08:43→21:02)
[2021-12-18] MEDS: Aspirin 81 mg Enteric Coated Tablet PO SCH (08:43)
[2021-12-18] MEDS: Icosapent Ethyl 1 GM CAPSULE PO SCH ×2 (08:43→21:02)
[2021-12-18] MEDS: Insulin Glargine 30 UNITS/0.3 ML VIAL SC SCH ×2 (08:44→21:05)
[2021-12-18] MEDS: Enoxaparin Sodium 40 MG/0.4 ML SYRINGE SC SCH (08:46)
[2021-12-18] MEDS: HumaLOG 300 UNITS/3 ML VIAL SC SCH ×3 (08:53→21:03)
[2021-12-18] MEDS ORDERED: cefTRIAXone\\ROCEPHIN 2 GM VIAL ONE (11:03)
[2021-12-18] MEDS: cefTRIAXone\\ROCEPHIN 2 GM in Sodium Chloride 0.9% 100 ML IVPB SCH (11:06)
[2021-12-18] MEDS: traMADol HCl 50 MG TAB PO PRN (12:54)
[2021-12-18] MEDS ORDERED: HYDROcodone/Acetaminophen 5/325 mg Tablet PO PRN (13:09)
[2021-12-18] MEDS ORDERED: HYDROcodone/Acetaminophen 5/325 mg Tablet PO SCH (13:30)
[2021-12-18] MEDS: Atorvastatin Calcium 10 MG TAB PO SCH (21:02)
[2021-12-19] MEDS: Lactated Ringer's 1,000 ML IV SCH ×5 (01:19→20:44)
[2021-12-19 03:55] LABS: #Eosinphils 0.5 thou/uL (0.0-0.7); #Monocytes 0.6 thou/uL (0.11-0.59); #Neutrophils 6.5 thou/uL (1.40-6.50); %Basophils 0.3 % (0.0-1.0); %Lymphocytes 11.7 % (21.0-51.0); %Monocytes 7.4 % (0.0-10.0); %Neutrophils 74.7 % (42.0-75.0); Hemoglobin 8.7 g/dL (14.0-18.0); Mean Corpuscular HGB CONC 31.3 g/dL (32.0-36.0); Mean Corpuscular Hemoglobin 27.5 pg (27.0-31.0); Mean Corpuscular Volume 87.8 fL (78.0-98.0); Mean Platelet Volume 8.6 fL (7.4-10.4); Platelet Count 195 thou/uL (130-400); RBC Distribution Width 14.9 % (11.5-14.5); Red Blood Cell (RBC) Count 3.17 mill/uL (4.70-6.10); White Blood Cell (WBC) Count 8.7 thou/uL (4.8-10.8)
[2021-12-19 04:16] LABS: Anion Gap 12 mmol/L (10-20); BUN (Urea Nitrogen) 39 mg/dL (8.4-25.7); CK (CPK) 282 U/L (30-200); Calc. Creatinine Clearance 55 mL/min (70-130); Calcium 8.6 mg/dL (7.8-10.44); Carbon Dioxide 24 mmol/L (23-31); Chloride 105 mmol/L (98-107); Estimated GFR 38; Glucose 137 mg/dL (83-110); Potassium 5.1 mmol/L (3.5-5.1); Sodium 136 mmol/L (136-145)
[2021-12-19] MEDS ORDERED: Milk Of Magnesia 30 ML UDCUP PO PRN (09:57)
[2021-12-19] MEDS: tiZANidine HCl 4 MG TAB PO SCH ×2 (10:23→20:43)
[2021-12-19] MEDS: Carvedilol 3.125 MG TAB PO SCH ×2 (10:23→20:43)
[2021-12-19] MEDS: Icosapent Ethyl 1 GM CAPSULE PO SCH ×2 (10:25→20:44)
[2021-12-19] MEDS: HumaLOG 300 UNITS/3 ML VIAL SC SCH ×3 (10:29→19:25)
[2021-12-19] MEDS ORDERED: Milk Of Magnesia 30 ML UDCUP PO SCH (10:30)
[2021-12-19] MEDS: HYDROcodone/Acetaminophen 10/325 mg Tablet PO PRN ×2 (11:10→18:56)
[2021-12-19] MEDS: Enoxaparin Sodium 40 MG/0.4 ML SYRINGE SC SCH (11:12)
[2021-12-19] MEDS: Insulin Glargine 30 UNITS/0.3 ML VIAL SC SCH ×2 (11:12→21:57)
[2021-12-19] MEDS: Aspirin 81 mg Enteric Coated Tablet PO SCH (11:12)
[2021-12-19] MEDS: cefTRIAXone\\ROCEPHIN 2 GM in Sodium Chloride 0.9% 100 ML IVPB SCH (13:23)
[2021-12-19] MEDS: Atorvastatin Calcium 10 MG TAB PO SCH (20:43)
[2021-12-20 04:37] LABS: #Eosinphils 0.4 thou/uL (0.0-0.7); #Lymphocytes 0.9 thou/uL (1.20-3.40); #Monocytes 0.8 thou/uL (0.11-0.59); #Neutrophils 5.6 thou/uL (1.40-6.50); %Basophils 0.3 % (0.0-1.0); %Eosinophils 5.5 % (0.0-10.0); %Monocytes 10.3 % (0.0-10.0); Hemoglobin 9.7 g/dL (14.0-18.0); Mean Corpuscular Hemoglobin 26.9 pg (27.0-31.0); Mean Corpuscular Volume 86.6 fL (78.0-98.0); Mean Platelet Volume 9.3 fL (7.4-10.4); Platelet Count 204 thou/uL (130-400); RBC Distribution Width 14.8 % (11.5-14.5); White Blood Cell (WBC) Count 7.8 thou/uL (4.8-10.8)
[2021-12-20 05:03] LABS: Anion Gap 14 mmol/L (10-20); BUN (Urea Nitrogen) 30 mg/dL (8.4-25.7); CK (CPK) 189 U/L (30-200); Calc. Creatinine Clearance 62 mL/min (70-130); Carbon Dioxide 24 mmol/L (23-31); Chloride 104 mmol/L (98-107); Estimated GFR 44; Glucose 110 mg/dL (83-110); Potassium 5.5 mmol/L (3.5-5.1); Sodium 136 mmol/L (136-145)
[2021-12-20] MEDS: Lactated Ringer's 1,000 ML IV SCH ×3 (05:17→20:39)
[2021-12-20] MEDS: tiZANidine HCl 4 MG TAB PO SCH ×2 (08:50→20:01)
[2021-12-20] MEDS: Icosapent Ethyl 1 GM CAPSULE PO SCH ×3 (08:51→20:05)
[2021-12-20] MEDS: Enoxaparin Sodium 40 MG/0.4 ML SYRINGE SC SCH (08:51)
[2021-12-20] MEDS: Carvedilol 3.125 MG TAB PO SCH ×2 (08:51→20:01)
[2021-12-20] MEDS: Aspirin 81 mg Enteric Coated Tablet PO SCH (08:51)
[2021-12-20] MEDS ORDERED: Milk Of Magnesia 30 ML UDCUP PO SCH (09:30)
[2021-12-20] MEDS ORDERED: Furosemide 40 MG TAB PO SCH (09:45)
[2021-12-20] MEDS: cefTRIAXone\\ROCEPHIN 2 GM in Sodium Chloride 0.9% 100 ML IVPB SCH (15:53)
[2021-12-20] MEDS ORDERED: Fleet Enema 133 ML BOT FS ONE (16:00)
[2021-12-20] MEDS: HumaLOG 300 UNITS/3 ML VIAL SC SCH (17:44)
[2021-12-20] MEDS: Insulin Glargine 30 UNITS/0.3 ML VIAL SC SCH (17:45)
[2021-12-20] MEDS: Atorvastatin Calcium 10 MG TAB PO SCH (20:01)
[2021-12-21] MEDS: Lactated Ringer's 1,000 ML IV SCH ×2 (00:56→07:54)
[2021-12-21 05:08] LABS: #Eosinphils 0.3 thou/uL (0.0-0.7); #Lymphocytes 0.8 thou/uL (1.20-3.40); #Monocytes 0.6 thou/uL (0.11-0.59); #Neutrophils 4.5 thou/uL (1.40-6.50); %Basophils 0.2 % (0.0-1.0); %Eosinophils 5.2 % (0.0-10.0); %Lymphocytes 13.3 % (21.0-51.0); %Neutrophils 71.4 % (42.0-75.0); Mean Corpuscular HGB CONC 32.8 g/dL (32.0-36.0); Mean Corpuscular Hemoglobin 28.2 pg (27.0-31.0); Mean Corpuscular Volume 85.7 fL (78.0-98.0); Mean Platelet Volume 8.3 fL (7.4-10.4); Platelet Count 222 thou/uL (130-400); RBC Distribution Width 14.8 % (11.5-14.5); White Blood Cell (WBC) Count 6.3 thou/uL (4.8-10.8)
[2021-12-21 05:23] LABS: Anion Gap 14 mmol/L (10-20); BUN (Urea Nitrogen) 27 mg/dL (8.4-25.7); Calc. Creatinine Clearance 60 mL/min (70-130); Carbon Dioxide 27 mmol/L (23-31); Chloride 100 mmol/L (98-107); Estimated GFR 43; Glucose 147 mg/dL (83-110); Potassium 4.5 mmol/L (3.5-5.1); Sodium 136 mmol/L (136-145)
[2021-12-21] MEDS: tiZANidine HCl 4 MG TAB PO SCH ×2 (07:57→20:06)
[2021-12-21] MEDS: Aspirin 81 mg Enteric Coated Tablet PO SCH (07:57)
[2021-12-21] MEDS: Carvedilol 3.125 MG TAB PO SCH ×2 (07:57→20:06)
[2021-12-21] MEDS: Icosapent Ethyl 1 GM CAPSULE PO SCH ×2 (07:57→20:06)
[2021-12-21] MEDS: Enoxaparin Sodium 40 MG/0.4 ML SYRINGE SC SCH (07:57)
[2021-12-21] MEDS ORDERED: Furosemide 40 MG/4 ML VIAL SLOW IVP SCH (08:00)
[2021-12-21] MEDS: cefTRIAXone\\ROCEPHIN 2 GM in Sodium Chloride 0.9% 100 ML IVPB SCH (12:28)
[2021-12-21] MEDS: Budesonide 0.5 MG/2 ML NEB NEB SCH (18:36)
[2021-12-21] MEDS: Atorvastatin Calcium 10 MG TAB PO SCH (20:06)
[2021-12-21] MEDS: HYDROcodone/Acetaminophen 10/325 mg Tablet PO PRN (20:06)
[2021-12-22 06:21] LABS: #Eosinphils 0.3 thou/uL (0.0-0.7); #Lymphocytes 0.8 thou/uL (1.20-3.40); #Monocytes 0.5 thou/uL (0.11-0.59); #Neutrophils 4.8 thou/uL (1.40-6.50); %Basophils 0.1 % (0.0-1.0); %Eosinophils 4.5 % (0.0-10.0); %Lymphocytes 12.2 % (21.0-51.0); %Monocytes 8.1 % (0.0-10.0); %Neutrophils 75.1 % (42.0-75.0); Hemoglobin 9.5 g/dL (14.0-18.0); Mean Corpuscular HGB CONC 31.3 g/dL (32.0-36.0); Mean Corpuscular Hemoglobin 27.1 pg (27.0-31.0); Mean Corpuscular Volume 86.8 fL (78.0-98.0); Mean Platelet Volume 8.1 fL (7.4-10.4); Platelet Count 243 thou/uL (130-400); Red Blood Cell (RBC) Count 3.49 mill/uL (4.70-6.10); White Blood Cell (WBC) Count 6.4 thou/uL (4.8-10.8)
[2021-12-22 06:36] LABS: Anion Gap 14 mmol/L (10-20); BUN (Urea Nitrogen) 27 mg/dL (8.4-25.7); Calc. Creatinine Clearance 56 mL/min (70-130); Carbon Dioxide 27 mmol/L (23-31); Chloride 101 mmol/L (98-107); Estimated GFR 39; Glucose 170 mg/dL (83-110); Potassium 4.5 mmol/L (3.5-5.1); Sodium 137 mmol/L (136-145)
[2021-12-22] MEDS: Budesonide 0.5 MG/2 ML NEB NEB SCH ×2 (07:08→18:23)
[2021-12-22] MEDS: Carvedilol 3.125 MG TAB PO SCH ×2 (10:19→21:31)
[2021-12-22] MEDS: Aspirin 81 mg Enteric Coated Tablet PO SCH (10:19)
[2021-12-22] MEDS: Icosapent Ethyl 1 GM CAPSULE PO SCH ×2 (10:20→21:31)
[2021-12-22] MEDS: HYDROcodone/Acetaminophen 10/325 mg Tablet PO PRN ×3 (10:20→22:07)
[2021-12-22] MEDS: Amiodarone 200 MG TAB PO SCH (10:20)
[2021-12-22] MEDS: tiZANidine HCl 4 MG TAB PO SCH ×2 (10:41→21:29)
[2021-12-22] MEDS: cefTRIAXone\\ROCEPHIN 2 GM in Sodium Chloride 0.9% 100 ML IVPB SCH (12:09)
[2021-12-22 12:25] LABS: Ferritin 76.25 ng/mL (22-322)
[2021-12-22] MEDS: Insulin Regular 300 UNITS/3 ML VIAL SC PRN ×2 (12:44→18:14)
[2021-12-22] MEDS ORDERED: GoLYTELY 4,000 ml Bottle PO SCH (17:00)
[2021-12-22] MEDS: Atorvastatin Calcium 10 MG TAB PO SCH (21:31)
[2021-12-23] MEDS: HYDROcodone/Acetaminophen 10/325 mg Tablet PO PRN ×2 (02:35→20:59)
[2021-12-23] MEDS: Carvedilol 3.125 MG TAB PO SCH ×2 (05:52→20:59)
[2021-12-23] MEDS: Budesonide 0.5 MG/2 ML NEB NEB SCH ×2 (07:22→19:04)
[2021-12-23] MEDS: Aspirin 81 mg Enteric Coated Tablet PO SCH (07:54)
[2021-12-23] MEDS: Amiodarone 200 MG TAB PO SCH (07:55)
[2021-12-23] MEDS: Icosapent Ethyl 1 GM CAPSULE PO SCH ×3 (07:55→20:59)
[2021-12-23] MEDS: tiZANidine HCl 4 MG TAB PO SCH ×2 (07:55→21:00)
[2021-12-23 08:43] LABS: Anion Gap 19 mmol/L (10-20); BUN (Urea Nitrogen) 23 mg/dL (8.4-25.7); Calc. Creatinine Clearance 59 mL/min (70-130); Calcium 9.1 mg/dL (7.8-10.44); Carbon Dioxide 22 mmol/L (23-31); Chloride 103 mmol/L (98-107); Estimated GFR 41; Glucose 171 mg/dL (83-110); Potassium 4.9 mmol/L (3.5-5.1); Sodium 139 mmol/L (136-145)
[2021-12-23 08:44] LABS: #Eosinphils 0.5 thou/uL (0.0-0.7); #Lymphocytes 0.8 thou/uL (1.20-3.40); #Monocytes 0.6 thou/uL (0.11-0.59); #Neutrophils 5.8 thou/uL (1.40-6.50); %Basophils 0.5 % (0.0-1.0); %Eosinophils 6.5 % (0.0-10.0); %Lymphocytes 10.2 % (21.0-51.0); %Monocytes 8.1 % (0.0-10.0); %Neutrophils 74.8 % (42.0-75.0); Hemoglobin 9.6 g/dL (14.0-18.0); Mean Corpuscular Hemoglobin 26.8 pg (27.0-31.0); Mean Corpuscular Volume 86.2 fL (78.0-98.0); Platelet Count 276 thou/uL (130-400); RBC Distribution Width 14.9 % (11.5-14.5); White Blood Cell (WBC) Count 7.7 thou/uL (4.8-10.8)
[2021-12-23] MEDS ORDERED: Vancomycin HCl 1 GM in Sodium Chloride 0.9% 250 ML 250 ML IVPB SCH (09:00)
[2021-12-23] MEDS ORDERED: ePHEDrine 50 MG/ML VIAL ONE (10:17)
[2021-12-23] MEDS ORDERED: Lidocaine 1% PF 5 ML VIAL ONE (10:17)
[2021-12-23] MEDS ORDERED: PROPOFOL 200 MG/20 ML VIAL ONE (10:17)
[2021-12-23] MEDS ORDERED: ePHEDrine Sulfate 50 MG/10 ML VIAL ONE (10:42)
[2021-12-23] MEDS ORDERED: Ondansetron HCl/PF 4 MG/2 ML Vial IVP PRN (10:47)
[2021-12-23] MEDS ORDERED: Promethazine HCl 25 MG/ML VIAL IM PRN (10:47)
[2021-12-23] MEDS ORDERED: Promethazine HCl 25 MG/ML VIAL IVPB PRN (10:47)
[2021-12-23] MEDS: VANCOMYCIN 1.75 GM/500 ML BAG 1.75 GM in Premix Bag 1 BAG IVPB SCH (11:23)
[2021-12-23] MEDS ORDERED: GoLYTELY 4,000 ml Bottle PO SCH (12:00)
[2021-12-23] MEDS: cefTRIAXone\\ROCEPHIN 2 GM in Sodium Chloride 0.9% 100 ML IVPB SCH (15:22)
[2021-12-23] MEDS: Atorvastatin Calcium 10 MG TAB PO SCH (20:59)
[2021-12-24] MEDS: Carvedilol 3.125 MG TAB PO SCH ×2 (05:11→20:51)
[2021-12-24] MEDS: Budesonide 0.5 MG/2 ML NEB NEB SCH ×2 (06:29→20:35)
[2021-12-24 08:22] LABS: Anion Gap 16 mmol/L (10-20); BUN (Urea Nitrogen) 20 mg/dL (8.4-25.7); Calc. Creatinine Clearance 68 mL/min (70-130); Calcium 8.6 mg/dL (7.8-10.44); Carbon Dioxide 22 mmol/L (23-31); Chloride 103 mmol/L (98-107); Estimated GFR 49; Glucose 145 mg/dL (83-110); Potassium 5.2 mmol/L (3.5-5.1); Sodium 136 mmol/L (136-145)
[2021-12-24] MEDS ORDERED: ePHEDrine 50 MG/ML VIAL ONE (08:47)
[2021-12-24] MEDS ORDERED: Lidocaine 1% PF 5 ML VIAL ONE (08:47)
[2021-12-24] MEDS ORDERED: PROPOFOL 200 MG/20 ML VIAL ONE (08:47)
[2021-12-24] MEDS: Amiodarone 200 MG TAB PO SCH (10:25)
[2021-12-24] MEDS: Icosapent Ethyl 1 GM CAPSULE PO SCH ×2 (10:25→20:51)
[2021-12-24] MEDS: Aspirin 81 mg Enteric Coated Tablet PO SCH (10:25)
[2021-12-24] MEDS: tiZANidine HCl 4 MG TAB PO SCH ×2 (10:26→20:52)
[2021-12-24] MEDS: VANCOMYCIN 1.75 GM/500 ML BAG 1.75 GM in Premix Bag 1 BAG IVPB SCH (10:27)
[2021-12-24] MEDS ORDERED: Iopamidol-370 76% 500 ML 1 ML ONE (14:03)
[2021-12-24 14:05] LABS: #Eosinphils 0.3 thou/uL (0.0-0.7); #Monocytes 0.7 thou/uL (0.11-0.59); #Neutrophils 4.3 thou/uL (1.40-6.50); %Basophils 0.2 % (0.0-1.0); %Eosinophils 5.2 % (0.0-10.0); %Lymphocytes 15.1 % (21.0-51.0); %Monocytes 10.8 % (0.0-10.0); %Neutrophils 68.6 % (42.0-75.0); Hemoglobin 9.1 g/dL (14.0-18.0); Mean Corpuscular Hemoglobin 26.8 pg (27.0-31.0); Mean Corpuscular Volume 86.4 fL (78.0-98.0); Mean Platelet Volume 7.7 fL (7.4-10.4); Platelet Count 241 thou/uL (130-400); RBC Distribution Width 14.9 % (11.5-14.5); Red Blood Cell (RBC) Count 3.38 mill/uL (4.70-6.10); White Blood Cell (WBC) Count 6.3 thou/uL (4.8-10.8)
[2021-12-24] MEDS: cefTRIAXone\\ROCEPHIN 2 GM in Sodium Chloride 0.9% 100 ML IVPB SCH (15:47)
[2021-12-24] MEDS: Atorvastatin Calcium 10 MG TAB PO SCH (20:51)
[2021-12-24] MEDS: HYDROcodone/Acetaminophen 10/325 mg Tablet PO PRN (20:52)
[2021-12-25 06:49] LABS: #Eosinphils 0.4 thou/uL (0.0-0.7); #Lymphocytes 0.8 thou/uL (1.20-3.40); #Monocytes 0.5 thou/uL (0.11-0.59); #Neutrophils 4.4 thou/uL (1.40-6.50); %Basophils 0.3 % (0.0-1.0); %Eosinophils 6.3 % (0.0-10.0); %Lymphocytes 12.3 % (21.0-51.0); %Monocytes 8.7 % (0.0-10.0); %Neutrophils 72.4 % (42.0-75.0); Hemoglobin 8.9 g/dL (14.0-18.0); Mean Corpuscular HGB CONC 31.1 g/dL (32.0-36.0); Mean Corpuscular Hemoglobin 26.8 pg (27.0-31.0); Mean Corpuscular Volume 86.1 fL (78.0-98.0); Mean Platelet Volume 7.6 fL (7.4-10.4); Platelet Count 234 thou/uL (130-400); RBC Distribution Width 14.8 % (11.5-14.5); Red Blood Cell (RBC) Count 3.34 mill/uL (4.70-6.10); White Blood Cell (WBC) Count 6.1 thou/uL (4.8-10.8)
[2021-12-25] MEDS: Budesonide 0.5 MG/2 ML NEB NEB SCH ×2 (07:10→18:23)
[2021-12-25 07:18] LABS: Anion Gap 16 mmol/L (10-20); BUN (Urea Nitrogen) 14 mg/dL (8.4-25.7); Calc. Creatinine Clearance 77 mL/min (70-130); Calcium 8.7 mg/dL (7.8-10.44); Carbon Dioxide 24 mmol/L (23-31); Chloride 103 mmol/L (98-107); Estimated GFR 56; Glucose 150 mg/dL (83-110); Potassium 3.8 mmol/L (3.5-5.1); Sodium 139 mmol/L (136-145)
[2021-12-25] MEDS: HYDROcodone/Acetaminophen 10/325 mg Tablet PO PRN ×3 (09:27→21:14)
[2021-12-25] MEDS: Carvedilol 3.125 MG TAB PO SCH (09:28)
[2021-12-25] MEDS: Aspirin 81 mg Enteric Coated Tablet PO SCH (09:28)
[2021-12-25] MEDS: Icosapent Ethyl 1 GM CAPSULE PO SCH ×3 (09:29→20:19)
[2021-12-25] MEDS: tiZANidine HCl 4 MG TAB PO SCH ×2 (09:29→20:19)
[2021-12-25] MEDS: Amiodarone 200 MG TAB PO SCH (09:29)
[2021-12-25] MEDS: VANCOMYCIN 2 GRAM/500 ML BAG 2 GM in Premix Bag 1 BAG IVPB SCH (11:00)
[2021-12-25] MEDS: VANCOMYCIN 1.75 GM/500 ML BAG 1.75 GM in Premix Bag 1 BAG IVPB SCH (11:01)
[2021-12-25] MEDS: cefTRIAXone\\ROCEPHIN 2 GM in Sodium Chloride 0.9% 100 ML IVPB SCH (14:21)
[2021-12-25] MEDS: Insulin Regular 300 UNITS/3 ML VIAL SC PRN (20:17)
[2021-12-25] MEDS: Carvedilol 6.25 MG TAB PO SCH (20:19)
[2021-12-25] MEDS: Atorvastatin Calcium 10 MG TAB PO SCH (20:20)
[2021-12-25] MEDS ORDERED: cloNIDine 0.1 MG TAB PO SCH (21:00)
[2021-12-26 06:26] LABS: #Eosinphils 0.5 thou/uL (0.0-0.7); #Lymphocytes 0.8 thou/uL (1.20-3.40); #Monocytes 0.6 thou/uL (0.11-0.59); #Neutrophils 4.5 thou/uL (1.40-6.50); %Basophils 0.2 % (0.0-1.0); %Eosinophils 7.4 % (0.0-10.0); %Lymphocytes 11.9 % (21.0-51.0); %Monocytes 9.2 % (0.0-10.0); %Neutrophils 71.3 % (42.0-75.0); Hemoglobin 9.3 g/dL (14.0-18.0); Mean Corpuscular HGB CONC 31.2 g/dL (32.0-36.0); Mean Corpuscular Volume 86.6 fL (78.0-98.0); Mean Platelet Volume 7.3 fL (7.4-10.4); Platelet Count 243 thou/uL (130-400); RBC Distribution Width 14.8 % (11.5-14.5); Red Blood Cell (RBC) Count 3.42 mill/uL (4.70-6.10); White Blood Cell (WBC) Count 6.4 thou/uL (4.8-10.8)
[2021-12-26 06:44] LABS: Anion Gap 13 mmol/L (10-20); BUN (Urea Nitrogen) 13 mg/dL (8.4-25.7); Calc. Creatinine Clearance 74 mL/min (70-130); Calcium 8.7 mg/dL (7.8-10.44); Carbon Dioxide 25 mmol/L (23-31); Chloride 104 mmol/L (98-107); Estimated GFR 53; Glucose 148 mg/dL (83-110); Potassium 4.1 mmol/L (3.5-5.1); Sodium 138 mmol/L (136-145)
[2021-12-26] MEDS: Budesonide 0.5 MG/2 ML NEB NEB SCH ×2 (07:06→18:44)
[2021-12-26] MEDS: Aspirin 81 mg Enteric Coated Tablet PO SCH (08:18)
[2021-12-26] MEDS: HYDROcodone/Acetaminophen 10/325 mg Tablet PO PRN ×3 (08:18→23:58)
[2021-12-26] MEDS: tiZANidine HCl 4 MG TAB PO SCH ×2 (08:19→21:08)
[2021-12-26] MEDS: Icosapent Ethyl 1 GM CAPSULE PO SCH ×2 (08:19→21:08)
[2021-12-26] MEDS: Carvedilol 6.25 MG TAB PO SCH ×2 (08:19→21:08)
[2021-12-26] MEDS: Amiodarone 200 MG TAB PO SCH (08:19)
[2021-12-26] MEDS: cloNIDine 0.2 MG TAB PO SCH ×2 (08:19→21:08)
[2021-12-26] MEDS: VANCOMYCIN 2 GRAM/500 ML BAG 2 GM in Premix Bag 1 BAG IVPB SCH (11:19)
[2021-12-26] MEDS ORDERED: Furosemide 40 MG/4 ML VIAL SLOW IVP SCH (12:12)
[2021-12-26] MEDS: Insulin Regular 300 UNITS/3 ML VIAL SC PRN (13:20)
[2021-12-26] MEDS: cefTRIAXone\\ROCEPHIN 2 GM in Sodium Chloride 0.9% 100 ML IVPB SCH (13:20)
[2021-12-26] MEDS: Atorvastatin Calcium 10 MG TAB PO SCH (21:08)
[2021-12-27] MEDS: Budesonide 0.5 MG/2 ML NEB NEB SCH ×2 (07:15→19:05)
[2021-12-27] MEDS: Carvedilol 6.25 MG TAB PO SCH ×2 (09:03→20:57)
[2021-12-27] MEDS: Amiodarone 200 MG TAB PO SCH (09:03)
[2021-12-27] MEDS: Aspirin 81 mg Enteric Coated Tablet PO SCH (09:03)
[2021-12-27] MEDS: cloNIDine 0.2 MG TAB PO SCH ×2 (09:04→20:56)
[2021-12-27] MEDS: tiZANidine HCl 4 MG TAB PO SCH ×2 (09:05→09:13)
[2021-12-27] MEDS: Icosapent Ethyl 1 GM CAPSULE PO SCH ×2 (09:05→20:56)
[2021-12-27] MEDS: metroNIDAZOLE 500 MG TAB PO SCH ×3 (09:18→20:56)
[2021-12-27] MEDS: VANCOMYCIN 2 GRAM/500 ML BAG 2 GM in Premix Bag 1 BAG IVPB SCH (11:08)
[2021-12-27] MEDS: Insulin Regular 300 UNITS/3 ML VIAL SC PRN ×2 (12:30→16:52)
[2021-12-27] MEDS: cefTRIAXone\\ROCEPHIN 2 GM in Sodium Chloride 0.9% 100 ML IVPB SCH (13:58)
[2021-12-27] MEDS: Neomycin 500 mg Tablet PO SCH ×3 (14:14→17:56)
[2021-12-27] MEDS: Atorvastatin Calcium 10 MG TAB PO SCH (20:57)
[2021-12-27] MEDS: HYDROcodone/Acetaminophen 10/325 mg Tablet PO PRN (21:01)
[2021-12-28] MEDS: HYDROcodone/Acetaminophen 10/325 mg Tablet PO PRN ×2 (03:10→12:08)
[2021-12-28] MEDS: Carvedilol 6.25 MG TAB PO SCH ×2 (05:31→21:36)
[2021-12-28] MEDS ORDERED: Bupivacaine/Epinephrine 0.25% 30 ML VIAL ONE ×2 (07:03→08:48)
[2021-12-28] MEDS: Budesonide 0.5 MG/2 ML NEB NEB SCH ×2 (07:17→18:38)
[2021-12-28] MEDS: Icosapent Ethyl 1 GM CAPSULE PO SCH ×2 (07:26→21:36)
[2021-12-28] MEDS: Aspirin 81 mg Enteric Coated Tablet PO SCH (07:26)
[2021-12-28] MEDS: cloNIDine 0.2 MG TAB PO SCH ×2 (07:26→21:35)
[2021-12-28] MEDS: Amiodarone 200 MG TAB PO SCH (07:26)
[2021-12-28] MEDS ORDERED: Levofloxacin 500 mg/D5W 100 ml Premix Bag ONE (08:14)
[2021-12-28] MEDS ORDERED: SUGAMMADEX SODIUM 200 MG/2 ML VIAL ONE (08:23)
[2021-12-28] MEDS ORDERED: fentaNYL Citrate/PF 100 MCG/2 ML SYRINGE ONE (08:23)
[2021-12-28] MEDS ORDERED: Dexamethasone 20 MG/5 ML VIAL ONE (08:55)
[2021-12-28] MEDS ORDERED: PROPOFOL 200 MG/20 ML VIAL ONE (08:55)
[2021-12-28] MEDS ORDERED: Lidocaine 1% PF 5 ML VIAL ONE (08:55)
[2021-12-28] MEDS ORDERED: Phenylephrine 10 MG/ML VIAL ONE (08:55)
[2021-12-28] MEDS ORDERED: Ondansetron PF 4 MG/2 ML Vial ONE (08:55)
[2021-12-28] MEDS ORDERED: Rocuronium Bromide 10 MG/ML (10ML VIAL) ONE (08:55)
[2021-12-28] MEDS ORDERED: Glycopyrrolate 0.2 MG/ML 5 ML SYRINGE ONE (08:55)
[2021-12-28] MEDS ORDERED: Neostigmine Methylsulfate 3 MG/3 ML SYRINGE ONE (08:55)
[2021-12-28] MEDS: VANCOMYCIN 2 GRAM/500 ML BAG 2 GM in Premix Bag 1 BAG IVPB SCH (10:49)
[2021-12-28] MEDS ORDERED: Ondansetron PF 4 MG/2 ML Vial IVP PRN ×2 (11:04→15:31)
[2021-12-28] MEDS ORDERED: hydrALAZINE 20 MG/ML VIAL SLOW IVP PRN (11:04)
[2021-12-28] MEDS ORDERED: Promethazine HCl 25 MG/ML VIAL IM PRN ×2 (11:04→15:31)
[2021-12-28] MEDS: cefTRIAXone\\ROCEPHIN 2 GM in Sodium Chloride 0.9% 100 ML IVPB SCH (12:07)
[2021-12-28] MEDS: Sodium Chloride 0.9% 1,000 ML IV SCH ×2 (12:30→16:33)
[2021-12-28] MEDS ORDERED: Fentanyl 100 MCG/2 ML VIAL SLOW IVP PRN (12:35)
[2021-12-28 14:06] VITALS: BMI 36.7
[2021-12-28] MEDS ORDERED: diphenhydrAMINE 50 MG/ML VIAL IM PRN (15:31)
[2021-12-28] MEDS ORDERED: diphenhydrAMINE 25 MG CAP PO PRN (15:31)
[2021-12-28] MEDS ORDERED: Zolpidem Tartrate 5 MG TAB PO PRN (15:31)
[2021-12-28] MEDS ORDERED: Naloxone HCl 0.4 mg/ml Vial IV PRN (15:31)
[2021-12-28] MEDS ORDERED: diphenhydrAMINE 50 MG/ML VIAL IVP PRN (15:31)
[2021-12-28] MEDS ORDERED: fentaNYL Citrate/PF 2,000 MCG in Sodium Chloride 0.9% 60 ML IV PRN (15:31)
[2021-12-28] MEDS ORDERED: Communication Order-Pharmacy FS SCH (15:45)
[2021-12-28] MEDS: Famotidine/PF 20 mg/2ml Vial SLOW IVP SCH (21:35)
[2021-12-28] MEDS: Atorvastatin Calcium 10 MG TAB PO SCH (21:36)
[2021-12-28] MEDS: Famotidine 20 MG TAB PO SCH (21:36)
[2021-12-29] MEDS: Sodium Chloride 0.9% 1,000 ML IV SCH ×2 (04:54→19:45)
[2021-12-29 06:22] LABS: #Lymphocytes 0.7 thou/uL (1.20-3.40); #Monocytes 0.7 thou/uL (0.11-0.59); #Neutrophils 13.2 thou/uL (1.40-6.50); %Lymphocytes 4.5 % (21.0-51.0); %Monocytes 4.6 % (0.0-10.0); %Neutrophils 90.9 % (42.0-75.0); Hemoglobin 9.7 g/dL (14.0-18.0); Mean Corpuscular HGB CONC 30.9 g/dL (32.0-36.0); Mean Corpuscular Hemoglobin 26.7 pg (27.0-31.0); Mean Corpuscular Volume 86.3 fL (78.0-98.0); Mean Platelet Volume 8.1 fL (7.4-10.4); Platelet Count 258 thou/uL (130-400); Red Blood Cell (RBC) Count 3.64 mill/uL (4.70-6.10); White Blood Cell (WBC) Count 14.5 thou/uL (4.8-10.8)
[2021-12-29] MEDS: Budesonide 0.5 MG/2 ML NEB NEB SCH ×2 (06:43→18:59)
[2021-12-29 06:48] LABS: Anion Gap 16 mmol/L (10-20); BUN (Urea Nitrogen) 20 mg/dL (8.4-25.7); Calc. Creatinine Clearance 71 mL/min (70-130); Calcium 8.3 mg/dL (7.8-10.44); Carbon Dioxide 21 mmol/L (23-31); Chloride 105 mmol/L (98-107); Estimated GFR 51; Glucose 197 mg/dL (83-110); Sodium 138 mmol/L (136-145)
[2021-12-29] MEDS: Icosapent Ethyl 1 GM CAPSULE PO SCH ×2 (08:06→21:55)
[2021-12-29] MEDS: Amiodarone 200 MG TAB PO SCH (08:07)
[2021-12-29] MEDS: cloNIDine 0.2 MG TAB PO SCH ×2 (08:07→21:55)
[2021-12-29] MEDS: Famotidine/PF 20 mg/2ml Vial SLOW IVP SCH ×2 (08:07→21:58)
[2021-12-29] MEDS: Carvedilol 6.25 MG TAB PO SCH ×2 (08:08→21:55)
[2021-12-29] MEDS: Famotidine 20 MG TAB PO SCH ×2 (08:08→21:00)
[2021-12-29] MEDS: Aspirin 81 mg Enteric Coated Tablet PO SCH (08:08)
[2021-12-29] MEDS: Enoxaparin Sodium 40 MG/0.4 ML SYRINGE SC SCH (08:08)
[2021-12-29] MEDS: Insulin Regular 300 UNITS/3 ML VIAL SC PRN ×2 (11:31→18:33)
[2021-12-29] MEDS: cefTRIAXone\\ROCEPHIN 2 GM in Sodium Chloride 0.9% 100 ML IVPB SCH (13:40)
[2021-12-29] MEDS ORDERED: Furosemide 40 MG/4 ML VIAL SLOW IVP SCH (18:00)
[2021-12-29] MEDS ORDERED: Fentanyl 100 MCG/2 ML VIAL SLOW IVP PRN (18:18)
[2021-12-29] MEDS: Atorvastatin Calcium 10 MG TAB PO SCH (21:58)
[2021-12-30] MEDS: Sodium Chloride 0.9% 1,000 ML IV SCH ×2 (04:36→13:13)
[2021-12-30 07:07] LABS: Hemoglobin 8.4 g/dL (14.0-18.0); Mean Corpuscular Hemoglobin 26.1 pg (27.0-31.0); Mean Corpuscular Volume 87.2 fL (78.0-98.0); Mean Platelet Volume 8.1 fL (7.4-10.4); Platelet Count 225 thou/uL (130-400); Red Blood Cell (RBC) Count 3.22 mill/uL (4.70-6.10); White Blood Cell (WBC) Count 10.2 thou/uL (4.8-10.8)
[2021-12-30] MEDS: Budesonide 0.5 MG/2 ML NEB NEB SCH ×2 (07:12→19:17)
[2021-12-30 07:20] LABS: Anion Gap 13 mmol/L (10-20); BUN (Urea Nitrogen) 22 mg/dL (8.4-25.7); Calc. Creatinine Clearance 72 mL/min (70-130); Carbon Dioxide 23 mmol/L (23-31); Chloride 105 mmol/L (98-107); Estimated GFR 52; Glucose 163 mg/dL (83-110); Potassium 3.6 mmol/L (3.5-5.1); Sodium 137 mmol/L (136-145)
[2021-12-30 08:15] LABS: #Lymphocytes 0.8 thou/uL (1.20-3.40); #Monocytes 0.6 thou/uL (0.11-0.59); #Neutrophils 8.7 thou/uL (1.40-6.50); %Basophils 0.1 % (0.0-1.0); %Eosinophils 0.5 % (0.0-10.0); %Lymphocytes 7.6 % (21.0-51.0); %Monocytes 5.8 % (0.0-10.0); %Neutrophils 86.1 % (42.0-75.0); MDiff Complete? YES
[2021-12-30] MEDS: Icosapent Ethyl 1 GM CAPSULE PO SCH ×2 (08:15→20:12)
[2021-12-30] MEDS: Enoxaparin Sodium 40 MG/0.4 ML SYRINGE SC SCH (08:15)
[2021-12-30] MEDS: Carvedilol 6.25 MG TAB PO SCH ×2 (08:15→20:11)
[2021-12-30] MEDS: Aspirin 81 mg Enteric Coated Tablet PO SCH (08:15)
[2021-12-30] MEDS: Famotidine 20 MG TAB PO SCH ×2 (08:15→20:11)
[2021-12-30] MEDS: Amiodarone 200 MG TAB PO SCH (08:15)
[2021-12-30 08:16] LABS: Hypochromia SLIGHT = 6-15 cells (100X) (0-5/hpf); Platelet Morphology Comment Appears Adequate; Polychromasia SLIGHT = 2-3 cells (100X) (0-2/hpf)
[2021-12-30] MEDS: HYDROcodone/Acetaminophen 10/325 mg Tablet PO PRN ×3 (08:16→20:11)
[2021-12-30] MEDS: Famotidine/PF 20 mg/2ml Vial SLOW IVP SCH ×2 (08:17→20:12)
[2021-12-30] MEDS ORDERED: Sodium Chloride 0.9% 1,000 ML IV SCH (09:59)
[2021-12-30] MEDS: Insulin Regular 300 UNITS/3 ML VIAL SC PRN ×3 (12:53→20:12)
[2021-12-30] MEDS: cloNIDine 0.2 MG TAB PO SCH ×2 (13:01→20:12)
[2021-12-30] MEDS: Atorvastatin Calcium 10 MG TAB PO SCH (20:12)
[2021-12-31] MEDS: HYDROcodone/Acetaminophen 10/325 mg Tablet PO PRN ×3 (00:17→20:02)
[2021-12-31] MEDS: Budesonide 0.5 MG/2 ML NEB NEB SCH ×2 (07:21→18:54)
[2021-12-31] MEDS: Enoxaparin Sodium 40 MG/0.4 ML SYRINGE SC SCH (07:59)
[2021-12-31] MEDS: Aspirin 81 mg Enteric Coated Tablet PO SCH (08:00)
[2021-12-31] MEDS: Icosapent Ethyl 1 GM CAPSULE PO SCH ×2 (08:00→19:59)
[2021-12-31] MEDS: Amiodarone 200 MG TAB PO SCH (08:02)
[2021-12-31] MEDS: Famotidine 20 MG TAB PO SCH ×2 (08:02→19:59)
[2021-12-31] MEDS: Carvedilol 6.25 MG TAB PO SCH ×2 (08:02→20:02)
[2021-12-31] MEDS: Famotidine/PF 20 mg/2ml Vial SLOW IVP SCH ×2 (08:03→19:13)
[2021-12-31] MEDS: cloNIDine 0.2 MG TAB PO SCH ×2 (08:03→20:01)
[2021-12-31] MEDS: Insulin Regular 300 UNITS/3 ML VIAL SC PRN ×2 (12:05→17:37)
[2021-12-31] MEDS: Atorvastatin Calcium 10 MG TAB PO SCH (20:03)
[2022-01-01] MEDS: Insulin Regular 300 UNITS/3 ML VIAL SC PRN ×2 (06:10→13:09)
[2022-01-01 06:29] LABS: #Eosinphils 0.2 thou/uL (0.0-0.7); #Lymphocytes 0.9 thou/uL (1.20-3.40); #Monocytes 0.5 thou/uL (0.11-0.59); #Neutrophils 4.1 thou/uL (1.40-6.50); %Basophils 0.3 % (0.0-1.0); %Eosinophils 4.3 % (0.0-10.0); %Lymphocytes 16.3 % (21.0-51.0); %Monocytes 8.1 % (0.0-10.0); Hemoglobin 8.5 g/dL (14.0-18.0); Mean Corpuscular HGB CONC 30.5 g/dL (32.0-36.0); Mean Corpuscular Volume 85.2 fL (78.0-98.0); Mean Platelet Volume 8.2 fL (7.4-10.4); Platelet Count 251 thou/uL (130-400); RBC Distribution Width 14.8 % (11.5-14.5); Red Blood Cell (RBC) Count 3.28 mill/uL (4.70-6.10); White Blood Cell (WBC) Count 5.7 thou/uL (4.8-10.8)
[2022-01-01] MEDS: Budesonide 0.5 MG/2 ML NEB NEB SCH (06:30)
[2022-01-01 07:03] LABS: Anion Gap 13 mmol/L (10-20); BUN (Urea Nitrogen) 21 mg/dL (8.4-25.7); Calc. Creatinine Clearance 76 mL/min (70-130); Calcium 9.2 mg/dL (7.8-10.44); Carbon Dioxide 26 mmol/L (23-31); Chloride 105 mmol/L (98-107); Estimated GFR 56; Glucose 216 mg/dL (83-110); Potassium 3.8 mmol/L (3.5-5.1); Sodium 140 mmol/L (136-145)
[2022-01-01 08:40] VITALS: TEMP 97.7
[2022-01-01] MEDS: Enoxaparin Sodium 40 MG/0.4 ML SYRINGE SC SCH (09:33)
[2022-01-01] MEDS: Aspirin 81 mg Enteric Coated Tablet PO SCH (09:33)
[2022-01-01] MEDS: Carvedilol 6.25 MG TAB PO SCH (09:33)
[2022-01-01] MEDS: Amiodarone 200 MG TAB PO SCH (09:34)
[2022-01-01] MEDS: Famotidine 20 MG TAB PO SCH (09:34)
[2022-01-01] MEDS: cloNIDine 0.2 MG TAB PO SCH (09:34)
[2022-01-01] MEDS: Famotidine/PF 20 mg/2ml Vial SLOW IVP SCH (09:35)
[2022-01-01] MEDS: Icosapent Ethyl 1 GM CAPSULE PO SCH (09:35)
[2022-01-01 09:40] VITALS: BP 143/57
== END 2022-01-01 14:24 | disposition home or self-care (01) | DRG 329 ==
LOC: ERS 10:07 → 2NO 13:45 → T4-B 12-21 21:04
PROVIDERS: ADMIT Specialist; ATTEND Specialist
PROC: 3E03329 Introduction of Other Anti-infective into Peripheral Vein, Percutaneous Approach (ICD-10-PCS; 2021-12-17)
PROC: 02HV33Z Insertion of Infusion Device into Superior Vena Cava, Percutaneous Approach (ICD-10-PCS; 2021-12-23)
PROC: B548ZZA Ultrasonography of Superior Vena Cava, Guidance (ICD-10-PCS; 2021-12-23)
PROC: 0DB78ZX Excision of Stomach, Pylorus, Via Natural or Artificial Opening Endoscopic, Diagnostic (ICD-10-PCS; 2021-12-24)
PROC: 0DBM8ZZ Excision of Descending Colon, Via Natural or Artificial Opening Endoscopic (ICD-10-PCS; 2021-12-24)
PROC: 0DBL8ZZ Excision of Transverse Colon, Via Natural or Artificial Opening Endoscopic (ICD-10-PCS; 2021-12-24)
PROC: 0DBN8ZZ Excision of Sigmoid Colon, Via Natural or Artificial Opening Endoscopic (ICD-10-PCS; 2021-12-24)
PROC: 0DBP8ZZ Excision of Rectum, Via Natural or Artificial Opening Endoscopic (ICD-10-PCS; 2021-12-24)
PROC: 0DTF0ZZ Resection of Right Large Intestine, Open Approach (ICD-10-PCS; principal; 2021-12-28)
DX: K63.5 Polyp of colon (principal); A41.51 Sepsis due to Escherichia coli [E. coli]; I50.32 Chronic diastolic (congestive) heart failure; N17.9 Acute kidney failure, unspecified; N10 Acute pyelonephritis; M62.82 Rhabdomyolysis; Z20.822 Contact with and (suspected) exposure to COVID-19; I25.10 Atherosclerotic heart disease of native coronary artery without angina pectoris; B18.2 Chronic viral hepatitis C; E78.00 Pure hypercholesterolemia, unspecified; M10.9 Gout, unspecified; E03.9 Hypothyroidism, unspecified; E11.9 Type 2 diabetes mellitus without complications; K29.60 Other gastritis without bleeding; K57.30 Diverticulosis of large intestine without perforation or abscess without bleeding; D64.9 Anemia, unspecified; I11.0 Hypertensive heart disease with heart failure; Z95.1 Presence of aortocoronary bypass graft; Z95.0 Presence of cardiac pacemaker; Z88.1 Allergy status to other antibiotic agents; Z88.0 Allergy status to penicillin; Z79.899 Other long term (current) drug therapy; Z79.4 Long term (current) use of insulin; Z79.51 Long term (current) use of inhaled steroids
CPT/HCPCS: 36415; 36416; 36569; 70450; 70551; 71045; 72125; 74176; 74177; 80048; 80053; 80061; 80202; 81003; 81015; 82274; 82378; 82550; 82553; 82565; 82607; 82728; 82805; 83550; 83605; 83880; 84484; 85014; 85018; 85025; 85049; 85652; 86850; 86900; 86901; 87040; 87077; 87086; 87186; 88305; 88309; 93005; 93306; 94640; 96374; 96375; 97139; C1751; J0610; J0696; J1100; J1644; J1650; J1815; J1940; J1956; J2370; J2405; J2704; J3010; J3370; J3490; J7050; J7120; J7620; J7626; Q9967; S0028; U0003; U0005

== ENCOUNTER 2022-05-31 14:10 | Emergency (ER) | payer OTHER ==
[2022-05-31 14:41] LABS: Hemoglobin 8.6 g/dL (14.0-18.0); Mean Corpuscular HGB CONC 31.7 g/dL (32.0-36.0); Mean Corpuscular Hemoglobin 23.7 pg (27.0-31.0); Mean Corpuscular Volume 74.7 fl (78.0-98.0); Mean Platelet Volume 10.5 fL (7.4-10.4); Platelet Count 168 10x3/uL (130-400); RBC Distribution Width 16.5 % (11.5-14.5); Red Blood Cell (RBC) Count 3.62 mill/uL (4.70-6.10); White Blood Cell (WBC) Count 5.9 10x3/uL (4.8-10.8)
[2022-05-31 14:57] LABS: #Basophils 0.1 thou/uL (0.0-0.2); #Eosinphils 0.1 thou/uL (0.0-0.7); #Monocytes 0.6 thou/uL (0.11-0.59); %Basophils 2.4 % (0.0-1.0); %Eosinophils 1.8 % (0.0-10.0); %Lymphocytes 17.7 % (21.0-51.0); %Monocytes 9.8 % (0.0-10.0); %Neutrophils 68.3 % (42.0-75.0)
[2022-05-31 15:11] LABS: Hypochromia SLIGHT = 6-15 cells (100X) (0-5/hpf); MDiff Complete? YES; Microcytosis SLIGHT = 6-15 cells (100X) (0-5/hpf); Ovalocytes SLIGHT = 2-5 cells (100X) (0-1/hpf); Platelet Morphology Comment Appears Adequate; Polychromasia SLIGHT = 2-3 cells (100X) (0-2/hpf)
[2022-05-31 15:25] LABS: Bacteria/HPF 2+ HPF (None Seen); Bilirubin Negative (Negative); Blood, Urine Trace (Negative); Clarity Turbid (Clear); Glucose, Urine (Dipstick) Greater than 1000 mg/dL (Negative); Ketone, Urine Negative (Negative); Leukocyte 500 Leu/uL (Negative); Nitrite Negative (Negative); Protein, Urine (Dipstick) Negative (Neg-Trace); RBC/HPF 0-3 HPF (0-3); Specific Gravity, Urine 1.014 (1.002-1.036); Squamous Epithelial 0-3 HPF (0-3); Urobilinogen Normal mg/dL (Less than 2); WBC/HPF Greater than 50 HPF (0-3); Yeast-Budding 2+ HPF (None Seen)
[2022-05-31 15:28] LABS: ALT (SGPT) 20 U/L (8-55); AST (SGOT) 29 U/L (5-34); Albumin 3.8 g/dL (3.4-4.8); Alkaline Phosphatase 106 U/L (40-110); Anion Gap 16 mmol/L (10-20); BUN (Urea Nitrogen) 39 mg/dL (8.4-25.7); Bilirubin, Total 0.6 mg/dL (0.2-1.2); Calc. Creatinine Clearance 0 mL/min (70-130); Calcium 8.5 mg/dL (7.8-10.44); Carbon Dioxide 23 mmol/L (23-31); Chloride 103 mmol/L (98-107); Estimated GFR 30; Globulin 2.6 g/dL (2.4-3.5); Glucose 162 mg/dL (83-110); Lipase 89 U/L (8-78); Potassium 4.3 mmol/L (3.5-5.1); Protein, Total 6.4 g/dL (5.8-8.1); Sodium 138 mmol/L (136-145)
== END 2022-05-31 20:20 | disposition home or self-care (01) ==
LOC: ERS 14:10
DX: R07.9 Chest pain, unspecified (principal); N39.0 Urinary tract infection, site not specified; E78.00 Pure hypercholesterolemia, unspecified; I10 Essential (primary) hypertension; E11.9 Type 2 diabetes mellitus without complications
CPT/HCPCS: 36415; 71045; 80053; 81003; 81015; 83690; 83880; 84484; 85025; 87040; 87077; 87086; 87186; 93005; 94760

== ENCOUNTER 2022-09-10 12:18 | Outpatient (CLI) | payer OTHER | END 2022-09-10 12:19 | disposition home or self-care (01) | LOC: BICULT 12:18 | PROVIDERS: ATTEND Internal Medicine Nephrology | DX: N17.9 Acute kidney failure, unspecified (principal); N18.9 Chronic kidney disease, unspecified | CPT/HCPCS: 36415; 76770; 80069; 81001; 82043; 87077; 87086 ==

== ENCOUNTER 2022-10-23 15:25 | Inpatient (IN) | payer OTHER, MEDICAID ==
[~2022-10-23 15:25] MED LIST: Heparin 10,000 UNITS/ 10 ML VIAL ONE
[2022-10-23] MEDS ORDERED: methylPREDNISolone Sod Succ/PF 125 MG/2 ML VIAL ONE (16:20)
[2022-10-23 16:51] LABS: #Eosinphils 0.1 thou/uL (0.0-0.7); #Monocytes 0.6 thou/uL (0.11-0.59); %Basophils 0.3 % (0.0-1.0); %Eosinophils 0.8 % (0.0-10.0); %Lymphocytes 25.3 % (21.0-51.0); %Monocytes 5.2 % (0.0-10.0); %Neutrophils 67.7 % (42.0-75.0); Hemoglobin 15.5 g/dL (14.0-18.0); Mean Corpuscular HGB CONC 31.8 g/dL (32.0-36.0); Mean Corpuscular Hemoglobin 30.7 pg (27.0-31.0); Mean Corpuscular Volume 96.4 fl (78.0-98.0); Mean Platelet Volume 12.1 fL (7.4-10.4); Platelet Count 179 10x3/uL (130-400); Red Blood Cell (RBC) Count 5.05 mill/uL (4.70-6.10); White Blood Cell (WBC) Count 11.8 10x3/uL (4.8-10.8)
[2022-10-23] MEDS ORDERED: LORazepam 2 MG/ML SYR.(CARPUJECT) ONE (17:00)
[2022-10-23] MEDS ORDERED: EPINEPHrine 1 MG/10 ML Abboject SYRINGE ONE (17:09)
[2022-10-23] MEDS ORDERED: Atropine Sulfate 1 mg/10 ml Syringe ONE (17:09)
[2022-10-23 17:16] LABS: ALT (SGPT) 61 U/L (8-55); AST (SGOT) 72 U/L (5-34); Albumin 4.3 g/dL (3.4-4.8); Alkaline Phosphatase 186 U/L (40-110); Anion Gap 17 mmol/L (10-20); BUN (Urea Nitrogen) 59 mg/dL (8.4-25.7); Bilirubin, Total 0.9 mg/dL (0.2-1.2); Calc. Creatinine Clearance 0 mL/min (70-130); Calcium 9.1 mg/dL (7.8-10.44); Carbon Dioxide 18 mmol/L (23-31); Chloride 100 mmol/L (98-107); Estimated GFR 20; Globulin 3.2 g/dL (2.4-3.5); Glucose 383 mg/dL (83-110); Protein, Total 7.5 g/dL (5.8-8.1); Sodium 127 mmol/L (136-145)
[2022-10-23 17:24] LABS: Potassium 7.6 mmol/L (3.5-5.1)
[2022-10-23 17:28] LABS: Analyzer IN Cardio ER; Base Excess -15.5 mEq/L (-2.0 to +3.0); Chloride (VBG) 120 mmol/L (98-106); Hematocrit-VBG 28 % (42.0-52.0); Hemoglobin (Hb) 9.5 g/dL (12.6-17.4); Sodium 136.5 mmol/L (133-146); pH (venous) 7.224 (7.32-7.43)
[2022-10-23] MEDS ORDERED: Calcium Chloride 1 GM/10 ML Abboject SYRINGE ONE ×2 (17:32→20:55)
[2022-10-23] MEDS ORDERED: Dextrose 50% Abboject 50 ML SYRINGE ONE (17:32)
[2022-10-23] MEDS ORDERED: Insulin Regular 300 UNITS/3 ML VIAL ONE (17:32)
[2022-10-23 19:27] LABS: Bacteria/HPF 2+ HPF (None Seen); Bilirubin Negative (Negative); Blood, Urine 3+ (Negative); CAUTI Indications for Culture Alt mental st,lethar; Clarity Turbid (Clear); Glucose, Urine (Dipstick) Greater than 1000 mg/dL (Negative); Ketone, Urine Negative (Negative); Leukocyte 250 Leu/uL (Negative); Nitrite Negative (Negative); Protein, Urine (Dipstick) 100 mg/dL (Neg-Trace); RBC/HPF Greater than 50 HPF (0-3); Renal Epithelial 0-3 HPF (None Seen); Specific Gravity, Urine 1.021 (1.002-1.036); Squamous Epithelial 0-3 HPF (0-3); Urobilinogen Normal mg/dL (Less than 2); WBC/HPF 21-50 HPF (0-3); pH, Urine 5.5 (5.0-9.0)
[2022-10-23 19:29] LABS: Urine Culture Reflex Yes Yes
[2022-10-23] MEDS ORDERED: Acetaminophen 325 MG TAB PO PRN (19:47)
[2022-10-23] MEDS ORDERED: Ondansetron PF 4 MG/2 ML Vial IVP PRN (19:47)
[2022-10-23] MEDS ORDERED: Sodium Bicarb 50 MEQ/50 ML VIAL ONE (20:00)
[2022-10-23] MEDS ORDERED: Furosemide 40 MG/4 ML VIAL ONE (20:04)
[2022-10-23] MEDS ORDERED: Dextrose 5% in Water 1,000 ML IV PRN (20:05)
[2022-10-23] MEDS ORDERED: Dextrose 50% Abboject 50 ML SYRINGE SLOW IVP PRN (20:05)
[2022-10-23] MEDS ORDERED: Glucagon 1 MG/ML KIT IM PRN (20:05)
[2022-10-23 20:34] LABS: ALT (SGPT) 329 U/L (8-55); AST (SGOT) 463 U/L (5-34); Alkaline Phosphatase 180 U/L (40-110); Anion Gap 15 mmol/L (10-20); BUN (Urea Nitrogen) 60 mg/dL (8.4-25.7); Bilirubin, Total 1.5 mg/dL (0.2-1.2); Calc. Creatinine Clearance 0 mL/min (70-130); Calcium 9.6 mg/dL (7.8-10.44); Carbon Dioxide 15 mmol/L (23-31); Chloride 104 mmol/L (98-107); Estimated GFR 21; Glucose 285 mg/dL (83-110); Sodium 127 mmol/L (136-145)
[2022-10-23 20:50] LABS: Potassium 7.4 mmol/L (3.5-5.1)
[2022-10-23] MEDS ORDERED: CALCIUM GLUC 1 GM/NS 50 ML BAG ONE (20:52)
[2022-10-23 21:06] LABS: Actual Bicarbonate (HCO3a) 18.2 mEq/L (22-28); Analyzer IN Cardio ER; Base Excess (BEa) -7.3 mEq/L (-2.0 to +3.0); CO2 Tension 37.2 mmHg (35.0-45.0); Carboxyhemoglobin (COHb) 0.6 gm% (0.0-3.0); Hematocrit-ABG 46 % (42.0-52.0); Hemoglobin (Hb) 15.5 g/dL (14.0-18.0); O2 Tension (PaO2), arterial 95.8 mmHg (> 70.0); pH, Arterial 7.308 (7.35-7.45)
[2022-10-23 21:14] LABS: Potassium - ABG Lab 6.77 mmol/L (3.70-5.30); Puncture Site LR
[2022-10-23] MEDS: Heparin 5,000 UNITS/ML VIAL SC SCH (23:32)
[2022-10-23] MEDS: cefTRIAXone\\ROCEPHIN 1 GM in Sodium Chloride 0.9% 100 ML IVPB SCH (23:32)
[2022-10-23 23:50] LABS: HBSAg Index 0.15 S/CO (0-0.99); Hep B Surf Ag Non-Reactive S/CO (NonReactive)
[2022-10-24] MEDS ORDERED: Sodium Bicarb 50 MEQ/50 ML VIAL ONE (00:21)
[2022-10-24] MEDS ORDERED: Sodium Bicarb 50 MEQ/50 ML VIAL IVP SCH (00:30)
[2022-10-24] MEDS ORDERED: Calcium Gluc 4.6 MEQ/10 ML (100 MG/ML) SLOW IVP SCH (00:30)
[2022-10-24] MEDS: Ipratropium/Albuterol 3 ML NEB IPPB SCH ×4 (00:33→18:49)
[2022-10-24 00:49] LABS: HBSAB Concentration 379.93 mIU/mL; Hep B Surf AB Reactive (NonReactive)
[2022-10-24 04:27] LABS: #Monocytes 0.4 thou/uL (0.11-0.59); #Neutrophils 10.8 thou/uL (1.40-6.50); %Lymphocytes 5.7 % (21.0-51.0); %Monocytes 3.3 % (0.0-10.0); %Neutrophils 90.4 % (42.0-75.0); Hemoglobin 14.2 g/dL (14.0-18.0); Mean Corpuscular HGB CONC 32.6 g/dL (32.0-36.0); Mean Corpuscular Hemoglobin 30.4 pg (27.0-31.0); Mean Platelet Volume 11.6 fL (7.4-10.4); Platelet Count 145 10x3/uL (130-400); RBC Distribution Width 16.8 % (11.5-14.5); Red Blood Cell (RBC) Count 4.67 mill/uL (4.70-6.10)
[2022-10-24 04:33] LABS: Mean Corpuscular Volume 93.1 fl (78.0-98.0)
[2022-10-24 04:47] LABS: ALT (SGPT) 824 U/L (8-55); AST (SGOT) 1177 U/L (5-34); Albumin 4.1 g/dL (3.4-4.8); Alkaline Phosphatase 174 U/L (40-110); Anion Gap 18 mmol/L (10-20); BUN (Urea Nitrogen) 44 mg/dL (8.4-25.7); Bilirubin, Total 2.3 mg/dL (0.2-1.2); Calc. Creatinine Clearance 39 mL/min (70-130); Carbon Dioxide 25 mmol/L (23-31); Chloride 98 mmol/L (98-107); Estimated GFR 27; Globulin 3.1 g/dL (2.4-3.5); Glucose 196 mg/dL (83-110); Potassium 4.6 mmol/L (3.5-5.1); Protein, Total 7.2 g/dL (5.8-8.1); Sodium 136 mmol/L (136-145)
[2022-10-24] MEDS: Furosemide 40 MG/4 ML VIAL SLOW IVP SCH ×2 (05:25→14:21)
[2022-10-24] MEDS: Heparin 5,000 UNITS/ML VIAL SC SCH ×2 (08:52→21:19)
[2022-10-24] MEDS: HumaLOG 300 UNITS/3 ML VIAL SC PRN ×2 (12:02→17:21)
[2022-10-24 14:11] LABS: HBSAg Index 0.24 S/CO (0-0.99); Hep B Surf Ag Non-Reactive S/CO (NonReactive)
[2022-10-24 14:13] LABS: HBCM Index 0.17 S/CO (0-0.79); Hepatitis B Core IgM Abs Non-Reactive S/CO (NonReactive)
[2022-10-24 14:18] LABS: Hep C IgG Ab Reflex HepC Qnt S/CO (NonReactive)
[2022-10-24 14:32] LABS: Hep A IgM AB Non-Reactive S/CO (NonReactive); Hep A IgM S/CO 0.62 S/CO (0-0.79)
[2022-10-24 14:36] LABS: Hep C Index 3.76 S/CO (0-0.79)
[2022-10-24] MEDS: cefTRIAXone\\ROCEPHIN 1 GM in Sodium Chloride 0.9% 100 ML IVPB SCH (21:19)
[2022-10-25] MEDS: Ipratropium/Albuterol 3 ML NEB IPPB SCH ×4 (00:52→18:58)
[2022-10-25 04:45] LABS: #Monocytes 0.7 thou/uL (0.11-0.59); #Neutrophils 11.4 thou/uL (1.40-6.50); %Basophils 0.2 % (0.0-1.0); %Eosinophils 0.1 % (0.0-10.0); %Lymphocytes 10.5 % (21.0-51.0); %Monocytes 5.3 % (0.0-10.0); %Neutrophils 83.7 % (42.0-75.0); Hemoglobin 14.3 g/dL (14.0-18.0); Mean Corpuscular HGB CONC 32.7 g/dL (32.0-36.0); Mean Corpuscular Hemoglobin 30.6 pg (27.0-31.0); Mean Corpuscular Volume 93.4 fl (78.0-98.0); Mean Platelet Volume 11.5 fL (7.4-10.4); Platelet Count 155 10x3/uL (130-400); RBC Distribution Width 17.3 % (11.5-14.5); Red Blood Cell (RBC) Count 4.68 mill/uL (4.70-6.10); White Blood Cell (WBC) Count 13.6 10x3/uL (4.8-10.8)
[2022-10-25 05:18] LABS: ALT (SGPT) 1075 U/L (8-55); AST (SGOT) 982 U/L (5-34); Albumin 4.1 g/dL (3.4-4.8); Alkaline Phosphatase 165 U/L (40-110); Bilirubin, Direct 0.7 mg/dL (0.1-0.3); Bilirubin, Total 1.2 mg/dL (0.2-1.2); Protein, Total 7.1 g/dL (5.8-8.1)
[2022-10-25 05:22] LABS: ALT (SGPT) 1078 U/L (8-55); AST (SGOT) 992 U/L (5-34); Albumin 4.1 g/dL (3.4-4.8); Alkaline Phosphatase 162 U/L (40-110); Anion Gap 14 mmol/L (10-20); BUN (Urea Nitrogen) 62 mg/dL (8.4-25.7); Bilirubin, Total 1.3 mg/dL (0.2-1.2); Calc. Creatinine Clearance 37 mL/min (70-130); Calcium 9.6 mg/dL (7.8-10.44); Carbon Dioxide 28 mmol/L (23-31); Chloride 99 mmol/L (98-107); Estimated GFR 26; Globulin 3.1 g/dL (2.4-3.5); Glucose 151 mg/dL (83-110); Potassium 4.3 mmol/L (3.5-5.1); Protein, Total 7.2 g/dL (5.8-8.1); Sodium 137 mmol/L (136-145)
[2022-10-25] MEDS: Furosemide 40 MG/4 ML VIAL SLOW IVP SCH ×2 (06:40→14:03)
[2022-10-25] MEDS ORDERED: Milk Of Magnesia 30 ML UDCUP PO SCH (08:00)
[2022-10-25] MEDS: Alogliptin 25 MG TAB PO SCH (08:22)
[2022-10-25] MEDS: Empagliflozin 25 MG TAB PO SCH (08:23)
[2022-10-25] MEDS: Heparin 5,000 UNITS/ML VIAL SC SCH ×2 (08:27→21:31)
[2022-10-25 10:26] LABS: Actual Bicarbonate (HCO3v) 10.7 mEq/L (22-28)
[2022-10-25] MEDS: HumaLOG 300 UNITS/3 ML VIAL SC PRN ×2 (14:03→20:04)
[2022-10-25] MEDS: cefTRIAXone\\ROCEPHIN 1 GM in Sodium Chloride 0.9% 100 ML IVPB SCH (21:31)
[2022-10-26] MEDS: Ipratropium/Albuterol 3 ML NEB IPPB SCH ×3 (00:27→14:12)
[2022-10-26 04:18] LABS: #Eosinphils 0.1 thou/uL (0.0-0.7); #Monocytes 0.9 thou/uL (0.11-0.59); #Neutrophils 6.8 thou/uL (1.40-6.50); %Basophils 0.3 % (0.0-1.0); %Eosinophils 1.3 % (0.0-10.0); %Lymphocytes 20.2 % (21.0-51.0); %Neutrophils 68.8 % (42.0-75.0); Hemoglobin 14.7 g/dL (14.0-18.0); Mean Corpuscular HGB CONC 32.5 g/dL (32.0-36.0); Mean Corpuscular Hemoglobin 30.6 pg (27.0-31.0); Mean Corpuscular Volume 94.2 fl (78.0-98.0); Platelet Count 141 10x3/uL (130-400); RBC Distribution Width 17.2 % (11.5-14.5); Red Blood Cell (RBC) Count 4.81 mill/uL (4.70-6.10); White Blood Cell (WBC) Count 9.9 10x3/uL (4.8-10.8)
[2022-10-26 04:52] LABS: ALT (SGPT) 824 U/L (8-55); AST (SGOT) 429 U/L (5-34); Albumin 4.1 g/dL (3.4-4.8); Alkaline Phosphatase 192 U/L (40-110); Anion Gap 17 mmol/L (10-20); BUN (Urea Nitrogen) 68 mg/dL (8.4-25.7); Bilirubin, Total 1.1 mg/dL (0.2-1.2); Calc. Creatinine Clearance 33 mL/min (70-130); Calcium 9.8 mg/dL (7.8-10.44); Carbon Dioxide 28 mmol/L (23-31); Chloride 95 mmol/L (98-107); Estimated GFR 24; Globulin 3.2 g/dL (2.4-3.5); Glucose 203 mg/dL (83-110); Potassium 3.9 mmol/L (3.5-5.1); Protein, Total 7.3 g/dL (5.8-8.1); Sodium 136 mmol/L (136-145)
[2022-10-26 06:24] VITALS: BMI 32.4
[2022-10-26] MEDS: Alogliptin 25 MG TAB PO SCH (08:45)
[2022-10-26] MEDS: Empagliflozin 25 MG TAB PO SCH (08:48)
[2022-10-26] MEDS: Heparin 5,000 UNITS/ML VIAL SC SCH ×2 (08:51→21:22)
[2022-10-26] MEDS ORDERED: Ipratropium/Albuterol 3 ML NEB IPPB PRN (14:30)
[2022-10-26] MEDS: HumaLOG 300 UNITS/3 ML VIAL SC PRN ×2 (19:03→21:22)
[2022-10-26] MEDS: cefTRIAXone\\ROCEPHIN 1 GM in Sodium Chloride 0.9% 100 ML IVPB SCH (21:21)
[2022-10-27] MEDS: HumaLOG 300 UNITS/3 ML VIAL SC PRN ×4 (06:47→21:36)
[2022-10-27 08:28] LABS: ALT (SGPT) 553 U/L (8-55); AST (SGOT) 159 U/L (5-34); Albumin 4.1 g/dL (3.4-4.8); Alkaline Phosphatase 173 U/L (40-110); Anion Gap 15 mmol/L (10-20); BUN (Urea Nitrogen) 66 mg/dL (8.4-25.7); Bilirubin, Total 1.2 mg/dL (0.2-1.2); Calc. Creatinine Clearance 38 mL/min (70-130); Calcium 9.9 mg/dL (7.8-10.44); Carbon Dioxide 26 mmol/L (23-31); Chloride 99 mmol/L (98-107); Estimated GFR 28; Globulin 3.2 g/dL (2.4-3.5); Glucose 185 mg/dL (83-110); Potassium 3.9 mmol/L (3.5-5.1); Protein, Total 7.3 g/dL (5.8-8.1); Sodium 136 mmol/L (136-145)
[2022-10-27] MEDS: Alogliptin 25 MG TAB PO SCH (09:32)
[2022-10-27] MEDS: Empagliflozin 25 MG TAB PO SCH (09:33)
[2022-10-27] MEDS: Heparin 5,000 UNITS/ML VIAL SC SCH ×2 (09:34→21:31)
[2022-10-27] MEDS ORDERED: Polyethylene Glycol 3350 17 GM Packet PO SCH (09:45)
[2022-10-27] MEDS: Milk Of Magnesia 30 ML UDCUP PO PRN (16:18)
[2022-10-27 19:36] LABS: Hep C PCR-Quant HCV Not Detected IU/mL (.)
[2022-10-27] MEDS: cefTRIAXone\\ROCEPHIN 1 GM in Sodium Chloride 0.9% 100 ML IVPB SCH (21:30)
[2022-10-28 04:11] LABS: #Eosinphils 0.2 thou/uL (0.0-0.7); %Basophils 0.4 % (0.0-1.0); %Eosinophils 1.9 % (0.0-10.0); %Lymphocytes 26.6 % (21.0-51.0); %Monocytes 11.6 % (0.0-10.0); %Neutrophils 59.3 % (42.0-75.0); Hemoglobin 15.4 g/dL (14.0-18.0); Mean Corpuscular HGB CONC 32.4 g/dL (32.0-36.0); Mean Corpuscular Hemoglobin 30.6 pg (27.0-31.0); Mean Corpuscular Volume 94.2 fl (78.0-98.0); Mean Platelet Volume 11.7 fL (7.4-10.4); Platelet Count 144 10x3/uL (130-400); RBC Distribution Width 16.6 % (11.5-14.5); Red Blood Cell (RBC) Count 5.04 mill/uL (4.70-6.10); White Blood Cell (WBC) Count 8.4 10x3/uL (4.8-10.8)
[2022-10-28 04:35] LABS: ALT (SGPT) 410 U/L (8-55); AST (SGOT) 101 U/L (5-34); Alkaline Phosphatase 177 U/L (40-110); Anion Gap 12 mmol/L (10-20); BUN (Urea Nitrogen) 58 mg/dL (8.4-25.7); Calc. Creatinine Clearance 40 mL/min (70-130); Calcium 9.6 mg/dL (7.8-10.44); Carbon Dioxide 29 mmol/L (23-31); Chloride 100 mmol/L (98-107); Estimated GFR 31; Globulin 3.1 g/dL (2.4-3.5); Glucose 154 mg/dL (83-110); Potassium 4.1 mmol/L (3.5-5.1); Protein, Total 7.1 g/dL (5.8-8.1); Sodium 137 mmol/L (136-145)
[2022-10-28] MEDS: HumaLOG 300 UNITS/3 ML VIAL SC PRN ×2 (05:16→13:01)
[2022-10-28] MEDS: Milk Of Magnesia 30 ML UDCUP PO PRN (05:58)
[2022-10-28] MEDS ORDERED: Polyethylene Glycol 3350 17 GM Packet PO SCH (09:00)
[2022-10-28] MEDS: Heparin 5,000 UNITS/ML VIAL SC SCH (10:11)
[2022-10-28] MEDS: Alogliptin 25 MG TAB PO SCH (10:13)
[2022-10-28] MEDS: Empagliflozin 25 MG TAB PO SCH (10:13)
[2022-10-28 12:12] VITALS: BP 115/56; TEMP 98.2
== END 2022-10-28 14:53 | disposition home or self-care (01) | DRG 682 ==
LOC: ERS 15:25 → CCU 19:48 → 2NO 10-26 12:29
PROVIDERS: ADMIT Internal Medicine; ATTEND Internal Medicine
PROC: 5A09357 Assistance with Respiratory Ventilation, Less than 24 Consecutive Hours, Continuous Positive Airway Pressure (ICD-10-PCS; principal; 2022-10-23)
PROC: 06HY33Z Insertion of Infusion Device into Lower Vein, Percutaneous Approach (ICD-10-PCS; 2022-10-23)
PROC: 0T9B70Z Drainage of Bladder with Drainage Device, Via Natural or Artificial Opening (ICD-10-PCS; 2022-10-23)
PROC: 3E033XZ Introduction of Vasopressor into Peripheral Vein, Percutaneous Approach (ICD-10-PCS; 2022-10-23)
PROC: 5A1D70Z Performance of Urinary Filtration, Intermittent, Less than 6 Hours Per Day (ICD-10-PCS; 2022-10-23)
PROC: 4A133B1 Monitoring of Arterial Pressure, Peripheral, Percutaneous Approach (ICD-10-PCS; 2022-10-23)
DX: N17.9 Acute kidney failure, unspecified (principal); I50.23 Acute on chronic systolic (congestive) heart failure; J96.21 Acute and chronic respiratory failure with hypoxia; I13.0 Hypertensive heart and chronic kidney disease with heart failure and stage 1 through stage 4 chronic kidney disease, or unspecified chronic kidney disease; N39.0 Urinary tract infection, site not specified; E87.1 Hypo-osmolality and hyponatremia; E87.20 Acidosis, unspecified; I50.32 Chronic diastolic (congestive) heart failure; I25.10 Atherosclerotic heart disease of native coronary artery without angina pectoris; E78.00 Pure hypercholesterolemia, unspecified; E66.9 Obesity, unspecified; E78.1 Pure hyperglyceridemia; R61 Generalized hyperhidrosis; E87.5 Hyperkalemia; I25.5 Ischemic cardiomyopathy; G47.33 Obstructive sleep apnea (adult) (pediatric); N18.30 Chronic kidney disease, stage 3 unspecified; E11.42 Type 2 diabetes mellitus with diabetic polyneuropathy; E11.22 Type 2 diabetes mellitus with diabetic chronic kidney disease; E11.51 Type 2 diabetes mellitus with diabetic peripheral angiopathy without gangrene; B18.2 Chronic viral hepatitis C; M10.9 Gout, unspecified; E11.65 Type 2 diabetes mellitus with hyperglycemia; R79.89 Other specified abnormal findings of blood chemistry; R74.01 Elevation of levels of liver transaminase levels; F17.210 Nicotine dependence, cigarettes, uncomplicated; B96.20 Unspecified Escherichia coli [E. coli] as the cause of diseases classified elsewhere; I34.0 Nonrheumatic mitral (valve) insufficiency; Z95.0 Presence of cardiac pacemaker; Z95.5 Presence of coronary angioplasty implant and graft; Z98.890 Other specified postprocedural states; Z88.0 Allergy status to penicillin; Z88.1 Allergy status to other antibiotic agents; Z88.2 Allergy status to sulfonamides; Z79.1 Long term (current) use of non-steroidal anti-inflammatories (NSAID); Z79.890 Hormone replacement therapy; Z79.01 Long term (current) use of anticoagulants; Z79.52 Long term (current) use of systemic steroids; Z79.891 Long term (current) use of opiate analgesic; Z79.02 Long term (current) use of antithrombotics/antiplatelets; Z68.31 Body mass index [BMI] 31.0-31.9, adult; Z86.010 Personal history of colon polyps; Z86.16 Personal history of COVID-19; Z95.1 Presence of aortocoronary bypass graft
CPT/HCPCS: 36415; 36416; 36556; 51702; 71045; 76705; 76770; 80053; 80074; 81001; 82010; 82805; 83880; 84484; 85025; 86706; 87077; 87086; 87186; 87340; 87522; 90935; 93005; 93010; 93306; 94640; 94660; 94760; 96365; 96375; 96376; G0257; J0171; J0461; J0612; J0613; J0696; J1644; J1815; J1940; J2060; J2930; J3490; J7611; J7620; J7999

== ENCOUNTER 2022-12-19 11:34 | Inpatient (IN) | payer OTHER, MEDICAID ==
[2022-12-19 12:35] LABS: #Monocytes 0.7 thou/uL (0.11-0.59); #Neutrophils 7.5 thou/uL (1.40-6.50); %Basophils 0.2 % (0.0-1.0); %Eosinophils 0.2 % (0.0-10.0); %Lymphocytes 13.4 % (21.0-51.0); %Monocytes 7.6 % (0.0-10.0); %Neutrophils 78.2 % (42.0-75.0); Hematocrit 18.1 % (42.0-52.0); Hemoglobin 5.4 g/dL (14.0-18.0); Mean Corpuscular HGB CONC 29.8 g/dL (32.0-36.0); Mean Corpuscular Hemoglobin 31.8 pg (27.0-31.0); Mean Corpuscular Volume 106.5 fl (78.0-98.0); Platelet Count 187 10x3/uL (130-400); White Blood Cell (WBC) Count 9.6 10x3/uL (4.8-10.8)
[2022-12-19 12:49] LABS: Prothrombin Time 23.3 sec (12.0-14.7)
[2022-12-19 12:50] LABS: PTT 35.6 sec (22.9-36.1)
[2022-12-19 12:58] LABS: ALT (SGPT) 17 U/L (8-55); AST (SGOT) 16 U/L (5-34); Albumin 3.5 g/dL (3.4-4.8); Alkaline Phosphatase 76 U/L (40-110); Anion Gap 13 mmol/L (10-20); BUN (Urea Nitrogen) 61 mg/dL (8.4-25.7); Bilirubin, Total 0.4 mg/dL (0.2-1.2); Calc. Creatinine Clearance 0 mL/min (70-130); Calcium 8.3 mg/dL (7.8-10.44); Carbon Dioxide 21 mmol/L (23-31); Chloride 107 mmol/L (98-107); Estimated GFR 34; Glucose 157 mg/dL (83-110); Lipase 50 U/L (8-78); Magnesium 2.5 mg/dL (1.6-2.6); Potassium 4.9 mmol/L (3.5-5.1); Protein, Total 5.5 g/dL (5.8-8.1); Sodium 136 mmol/L (136-145)
[2022-12-19 13:00] LABS: Bilirubin Negative (Negative); Blood, Urine 1+ (Negative); CAUTI Indications for Culture Dysuria,urgency,freq; Clarity Extra Turbid (Clear); Glucose, Urine (Dipstick) Greater than 1000 mg/dL (Negative); Ketone, Urine Negative (Negative); Leukocyte 500 Leu/uL (Negative); Nitrite 1+ (Negative); Protein, Urine (Dipstick) 20 mg/dL (Neg-Trace); Specific Gravity, Urine 1.017 (1.002-1.036); Squamous Epithelial None Seen HPF (0-3); Urobilinogen Normal mg/dL (Less than 2); WBC/HPF Greater than 50 HPF (0-3); pH, Urine 5.5 (5.0-9.0)
[2022-12-19 13:13] LABS: Hematocrit 18.4 % (42.0-52.0); Hemoglobin 5.4 g/dL (14.0-18.0)
[2022-12-19 13:18] LABS: Bacteria/HPF 2+ HPF (None Seen)
[2022-12-19 13:20] LABS: Urine Culture Reflex Yes Yes
[2022-12-19] MEDS ORDERED: Pantoprazole 40 MG VIAL ONE (13:26)
[2022-12-19] MEDS ORDERED: fentaNYL 50 mcg/mL 1 mL Vial ONE (14:38)
[2022-12-19] MEDS ORDERED: Ondansetron PF 4 MG/2 ML Vial IVP PRN (15:47)
[2022-12-19] MEDS ORDERED: Ondansetron ODT 4 MG TAB PO PRN (15:47)
[2022-12-19] MEDS ORDERED: Acetaminophen 325 MG TAB PO PRN (15:47)
[2022-12-19] MEDS ORDERED: Glucagon 1 MG/ML KIT IM PRN (15:56)
[2022-12-19] MEDS ORDERED: Dextrose 5% in Water 1,000 ML IV PRN (15:56)
[2022-12-19] MEDS ORDERED: Dextrose 50% Abboject 50 ML SYRINGE SLOW IVP PRN (15:56)
[2022-12-19] MEDS ORDERED: Sodium Chloride 0.9% 100 ML ONE (16:41)
[2022-12-19] MEDS ORDERED: cefTRIAXone (ROCEPHIN) 1 GM VIAL ONE (16:42)
[2022-12-19 18:14] VITALS: BMI 34.3
[2022-12-19] MEDS: Sodium Chloride 0.9% 1,000 ML IV SCH (18:22)
[2022-12-19] MEDS: Pantoprazole 80 MG, Admixture Fee 1 EACH in Sodium Chloride 0.9% 100 ML IVPB SCH (23:31)
[2022-12-20] MEDS: Sodium Chloride 0.9% 1,000 ML IV SCH ×3 (02:20→19:46)
[2022-12-20 04:56] LABS: #Eosinphils 0.1 thou/uL (0.0-0.7); #Neutrophils 5.7 thou/uL (1.40-6.50); %Basophils 0.2 % (0.0-1.0); %Lymphocytes 20.3 % (21.0-51.0); %Monocytes 11.4 % (0.0-10.0); %Neutrophils 66.9 % (42.0-75.0); Hematocrit 22.8 % (42.0-52.0); Hemoglobin 7.1 g/dL (14.0-18.0); Mean Corpuscular HGB CONC 31.1 g/dL (32.0-36.0); Platelet Count 157 10x3/uL (130-400); RBC Distribution Width 18.2 % (11.5-14.5); Red Blood Cell (RBC) Count 2.22 mill/uL (4.70-6.10); White Blood Cell (WBC) Count 8.6 10x3/uL (4.8-10.8)
[2022-12-20 05:02] LABS: Mean Corpuscular Volume 102.7 fl (78.0-98.0)
[2022-12-20 05:23] LABS: Anion Gap 10 mmol/L (10-20); BUN (Urea Nitrogen) 52 mg/dL (8.4-25.7); Calc. Creatinine Clearance 58 mL/min (70-130); Calcium 7.8 mg/dL (7.8-10.44); Carbon Dioxide 19 mmol/L (23-31); Chloride 112 mmol/L (98-107); Estimated GFR 44; Glucose 91 mg/dL (83-110); Potassium 4.4 mmol/L (3.5-5.1); Sodium 137 mmol/L (136-145)
[2022-12-20 12:07] LABS: Hematocrit 23.5 % (42.0-52.0); Hemoglobin 7.2 g/dL (14.0-18.0); Platelet Count 160 10x3/uL (130-400)
[2022-12-20] MEDS: Pantoprazole 80 MG, Admixture Fee 1 EACH in Sodium Chloride 0.9% 100 ML IVPB SCH (12:50)
[2022-12-20] MEDS ORDERED: GoLYTELY 4,000 ml Bottle PO SCH (17:00)
[2022-12-20] MEDS: cefTRIAXone\\ROCEPHIN 1 GM in Sodium Chloride 0.9% 100 ML IVPB SCH (17:43)
[2022-12-20] MEDS ORDERED: LevoFLOXacin 500 mg/D5W 500 MG in Premix Bag 1 BAG IVPB SCH (18:00)
[2022-12-20] MEDS ORDERED: HYDROcodone/Acetaminophen 5/325 mg Tablet PO PRN (19:20)
[2022-12-20] MEDS ORDERED: Ipratropium/Albuterol 3 ML NEB IPPB PRN (23:37)
[2022-12-20] MEDS ORDERED: Acetaminophen/Codeine 30-300mg Tablet PO PRN (23:39)
[2022-12-21] MEDS: Pantoprazole 80 MG, Admixture Fee 1 EACH in Sodium Chloride 0.9% 100 ML IVPB SCH (01:35)
[2022-12-21 05:05] LABS: #Eosinphils 0.1 thou/uL (0.0-0.7); #Monocytes 0.9 thou/uL (0.11-0.59); #Neutrophils 4.7 thou/uL (1.40-6.50); %Basophils 0.3 % (0.0-1.0); %Eosinophils 1.9 % (0.0-10.0); %Lymphocytes 22.1 % (21.0-51.0); %Neutrophils 63.2 % (42.0-75.0); Hematocrit 23.2 % (42.0-52.0); Hemoglobin 7.1 g/dL (14.0-18.0); Mean Corpuscular HGB CONC 30.6 g/dL (32.0-36.0); Mean Corpuscular Hemoglobin 31.8 pg (27.0-31.0); Mean Platelet Volume 10.5 fL (7.4-10.4); Platelet Count 156 10x3/uL (130-400); RBC Distribution Width 17.4 % (11.5-14.5); Red Blood Cell (RBC) Count 2.23 mill/uL (4.70-6.10); White Blood Cell (WBC) Count 7.5 10x3/uL (4.8-10.8)
[2022-12-21 05:29] LABS: Anion Gap 11 mmol/L (10-20); BUN (Urea Nitrogen) 43 mg/dL (8.4-25.7); Calc. Creatinine Clearance 60 mL/min (70-130); Calcium 8.1 mg/dL (7.8-10.44); Carbon Dioxide 21 mmol/L (23-31); Cardiac Risk 4.2 (Less than 4.5); Chloride 112 mmol/L (98-107); Cholesterol 72 mg/dl (< 200 Desired); Estimated GFR 46; Glucose 125 mg/dL (83-110); HDL Cholesterol 17 mg/dL (>60 Neg Risk); LDL Cholesterol, Calculated 30 mg/dL; Potassium 4.2 mmol/L (3.5-5.1); Sodium 140 mmol/L (136-145); Triglycerides 127 mg/dL (Less than 150)
[2022-12-21] MEDS: Levothyroxine Sodium 75 MCG TAB PO SCH (06:22)
[2022-12-21] MEDS: Sodium Chloride 0.9% 1,000 ML IV SCH ×3 (06:22→18:31)
[2022-12-21] MEDS ORDERED: Budesonide 0.5 MG/2 ML NEB NEB PRN (09:00)
[2022-12-21] MEDS ORDERED: GoLYTELY 4,000 ml Bottle PO SCH ×2 (12:30→17:00)
[2022-12-21] MEDS ORDERED: ePHEDrine Sulfate 50 MG/10 ML VIAL ONE (15:55)
[2022-12-21] MEDS ORDERED: PROPOFOL 200 MG/20 ML VIAL ONE (15:55)
[2022-12-21] MEDS ORDERED: Ondansetron HCl/PF 4 MG/2 ML Vial IVP PRN (17:04)
[2022-12-21] MEDS ORDERED: Promethazine HCl 25 MG/ML VIAL IM PRN (17:04)
[2022-12-21] MEDS ORDERED: Sodium Chloride 0.9% 100 ML ONE (17:29)
[2022-12-21] MEDS ORDERED: cefTRIAXone (ROCEPHIN) 1 GM VIAL ONE (17:29)
[2022-12-21] MEDS: cefTRIAXone\\ROCEPHIN 1 GM in Sodium Chloride 0.9% 100 ML IVPB SCH (17:34)
[2022-12-21] MEDS: HYDROcodone/Acetaminophen 5/325 mg Tablet PO PRN (20:36)
[2022-12-22] MEDS: HYDROcodone/Acetaminophen 5/325 mg Tablet PO PRN (01:25)
[2022-12-22 04:13] LABS: #Eosinphils 0.1 thou/uL (0.0-0.7); #Monocytes 0.7 thou/uL (0.11-0.59); #Neutrophils 4.7 thou/uL (1.40-6.50); %Basophils 0.4 % (0.0-1.0); %Eosinophils 1.9 % (0.0-10.0); %Lymphocytes 19.6 % (21.0-51.0); Hemoglobin 6.2 g/dL (14.0-18.0); Mean Corpuscular HGB CONC 28.2 g/dL (32.0-36.0); Mean Corpuscular Hemoglobin 31.3 pg (27.0-31.0); Mean Platelet Volume 10.8 fL (7.4-10.4); Platelet Count 143 10x3/uL (130-400); RBC Distribution Width 17.2 % (11.5-14.5); Red Blood Cell (RBC) Count 1.98 mill/uL (4.70-6.10); White Blood Cell (WBC) Count 6.9 10x3/uL (4.8-10.8)
[2022-12-22 04:16] LABS: Mean Corpuscular Volume 111.1 fl (78.0-98.0)
[2022-12-22 04:33] LABS: Anion Gap 13 mmol/L (10-20); BUN (Urea Nitrogen) 32 mg/dL (8.4-25.7); Calc. Creatinine Clearance 69 mL/min (70-130); Calcium 7.5 mg/dL (7.8-10.44); Carbon Dioxide 18 mmol/L (23-31); Chloride 114 mmol/L (98-107); Estimated GFR 54; Glucose 108 mg/dL (83-110); Sodium 141 mmol/L (136-145)
[2022-12-22] MEDS: Sodium Chloride 0.9% 1,000 ML IV SCH ×3 (05:48→18:58)
[2022-12-22] MEDS: Levothyroxine Sodium 75 MCG TAB PO SCH (05:49)
[2022-12-22] MEDS: HYDROcodone/Acetaminophen 5/325 mg Tablet PO SCH ×4 (11:44→22:33)
[2022-12-22] MEDS: Ipratropium/Albuterol 3 ML NEB NEB SCH ×3 (15:03→19:15)
[2022-12-22] MEDS: cefTRIAXone\\ROCEPHIN 1 GM in Sodium Chloride 0.9% 100 ML IVPB SCH (18:47)
[2022-12-23 04:41] LABS: #Eosinphils 0.1 thou/uL (0.0-0.7); #Monocytes 0.9 thou/uL (0.11-0.59); #Neutrophils 4.2 thou/uL (1.40-6.50); %Basophils 0.3 % (0.0-1.0); %Eosinophils 2.1 % (0.0-10.0); %Lymphocytes 22.2 % (21.0-51.0); %Monocytes 13.3 % (0.0-10.0); %Neutrophils 61.8 % (42.0-75.0); Hematocrit 22.7 % (42.0-52.0); Hemoglobin 6.9 g/dL (14.0-18.0); Mean Corpuscular HGB CONC 30.4 g/dL (32.0-36.0); Mean Corpuscular Hemoglobin 31.4 pg (27.0-31.0); Mean Corpuscular Volume 103.2 fl (78.0-98.0); Mean Platelet Volume 12.1 fL (7.4-10.4); Platelet Count 114 10x3/uL (130-400); RBC Distribution Width 19.5 % (11.5-14.5); White Blood Cell (WBC) Count 6.7 10x3/uL (4.8-10.8)
[2022-12-23 05:00] LABS: Anion Gap 10 mmol/L (10-20); BUN (Urea Nitrogen) 31 mg/dL (8.4-25.7); Calc. Creatinine Clearance 68 mL/min (70-130); Calcium 7.7 mg/dL (7.8-10.44); Carbon Dioxide 18 mmol/L (23-31); Chloride 115 mmol/L (98-107); Estimated GFR 52; Glucose 166 mg/dL (83-110); Potassium 4.1 mmol/L (3.5-5.1); Sodium 139 mmol/L (136-145)
[2022-12-23 05:53] LABS: Anisocytosis SLIGHT = 6-15 cells HPF (0-5); Burr Cells SLIGHT = 2-5 cells HPF (0-1); Hypochromia SLIGHT = 6-15 cells HPF (0-5); Macrocytosis SLIGHT = 6-15 cells HPF (0-5); Ovalocytes SLIGHT = 2-5 cells HPF (0-1); Platelet Adequacy Comment Platelets Decreased; Poikilocytosis SLIGHT = 6-15 cells HPF (0-5); Polychromasia SLIGHT = 2-3 cells HPF (0-2)
[2022-12-23] MEDS: Sodium Chloride 0.9% 1,000 ML IV SCH ×2 (06:31→13:09)
[2022-12-23] MEDS: Levothyroxine Sodium 75 MCG TAB PO SCH (06:31)
[2022-12-23] MEDS: HYDROcodone/Acetaminophen 5/325 mg Tablet PO SCH ×5 (06:31→21:19)
[2022-12-23] MEDS: Ipratropium/Albuterol 3 ML NEB NEB SCH ×4 (06:54→18:40)
[2022-12-23] MEDS ORDERED: methylPREDNISolone Sod Succ 40 MG VIAL IVP SCH (10:15)
[2022-12-23] MEDS ORDERED: Amiodarone 200 MG TAB PO SCH (10:15)
[2022-12-23] MEDS ORDERED: Carvedilol 6.25 MG TAB PO SCH (10:15)
[2022-12-23 15:05] LABS: Hematocrit 23.9 % (42.0-52.0); Hemoglobin 7.4 g/dL (14.0-18.0)
[2022-12-23] MEDS: Carvedilol 6.25 MG TAB PO SCH (17:29)
[2022-12-23] MEDS: cefTRIAXone\\ROCEPHIN 1 GM in Sodium Chloride 0.9% 100 ML IVPB SCH (17:34)
[2022-12-23] MEDS: HumaLOG 300 UNITS/3 ML VIAL SC PRN ×2 (18:39→21:23)
[2022-12-24 04:28] LABS: #Monocytes 0.2 thou/uL (0.11-0.59); #Neutrophils 5.3 thou/uL (1.40-6.50); %Basophils 0.2 % (0.0-1.0); %Lymphocytes 10.3 % (21.0-51.0); %Monocytes 2.6 % (0.0-10.0); %Neutrophils 85.9 % (42.0-75.0); Hemoglobin 8.5 g/dL (14.0-18.0); Mean Corpuscular HGB CONC 31.5 g/dL (32.0-36.0); Mean Platelet Volume 11.3 fL (7.4-10.4); Platelet Count 123 10x3/uL (130-400); RBC Distribution Width 18.6 % (11.5-14.5); Red Blood Cell (RBC) Count 2.74 mill/uL (4.70-6.10); White Blood Cell (WBC) Count 6.1 10x3/uL (4.8-10.8)
[2022-12-24 04:44] LABS: Mean Corpuscular Volume 98.5 fl (78.0-98.0)
[2022-12-24 04:48] LABS: Anion Gap 14 mmol/L (10-20); BUN (Urea Nitrogen) 34 mg/dL (8.4-25.7); Calc. Creatinine Clearance 72 mL/min (70-130); Carbon Dioxide 16 mmol/L (23-31); Chloride 113 mmol/L (98-107); Estimated GFR 56; Glucose 221 mg/dL (83-110); Potassium 4.7 mmol/L (3.5-5.1); Sodium 138 mmol/L (136-145)
[2022-12-24] MEDS: HumaLOG 300 UNITS/3 ML VIAL SC PRN ×4 (05:32→21:57)
[2022-12-24] MEDS: Levothyroxine Sodium 75 MCG TAB PO SCH (05:32)
[2022-12-24] MEDS: HYDROcodone/Acetaminophen 5/325 mg Tablet PO SCH ×5 (06:40→22:30)
[2022-12-24] MEDS: Ipratropium/Albuterol 3 ML NEB NEB SCH ×4 (07:09→19:10)
[2022-12-24] MEDS ORDERED: Milk Of Magnesia 30 ML UDCUP PO PRN (08:28)
[2022-12-24] MEDS ORDERED: Milk Of Magnesia 30 ML UDCUP PO SCH (08:30)
[2022-12-24] MEDS: Carvedilol 6.25 MG TAB PO SCH ×2 (09:00→15:40)
[2022-12-24] MEDS: Amiodarone 200 MG TAB PO SCH (09:01)
[2022-12-24] MEDS: Febuxostat 40 MG TAB PO SCH (09:01)
[2022-12-24] MEDS: Lisinopril 20 MG TAB PO SCH (09:01)
[2022-12-24] MEDS: cefTRIAXone\\ROCEPHIN 1 GM in Sodium Chloride 0.9% 100 ML IVPB SCH (15:41)
[2022-12-25 04:47] LABS: #Eosinphils 0.2 thou/uL (0.0-0.7); #Monocytes 0.6 thou/uL (0.11-0.59); #Neutrophils 5.5 thou/uL (1.40-6.50); %Basophils 0.3 % (0.0-1.0); %Eosinophils 2.7 % (0.0-10.0); %Monocytes 7.1 % (0.0-10.0); %Neutrophils 70.6 % (42.0-75.0); Hematocrit 26.1 % (42.0-52.0); Hemoglobin 8.2 g/dL (14.0-18.0); Mean Corpuscular HGB CONC 31.4 g/dL (32.0-36.0); Mean Corpuscular Hemoglobin 30.7 pg (27.0-31.0); Mean Corpuscular Volume 97.8 fl (78.0-98.0); Mean Platelet Volume 10.7 fL (7.4-10.4); Platelet Count 139 10x3/uL (130-400); RBC Distribution Width 18.2 % (11.5-14.5); Red Blood Cell (RBC) Count 2.67 mill/uL (4.70-6.10); White Blood Cell (WBC) Count 7.8 10x3/uL (4.8-10.8)
[2022-12-25 05:11] LABS: Anion Gap 9 mmol/L (10-20); BUN (Urea Nitrogen) 39 mg/dL (8.4-25.7); Calc. Creatinine Clearance 68 mL/min (70-130); Calcium 8.4 mg/dL (7.8-10.44); Carbon Dioxide 23 mmol/L (23-31); Chloride 111 mmol/L (98-107); Estimated GFR 51; Glucose 203 mg/dL (83-110); Potassium 4.6 mmol/L (3.5-5.1); Sodium 138 mmol/L (136-145)
[2022-12-25] MEDS: Levothyroxine Sodium 75 MCG TAB PO SCH (06:27)
[2022-12-25] MEDS: HYDROcodone/Acetaminophen 5/325 mg Tablet PO SCH ×4 (06:29→21:56)
[2022-12-25] MEDS: Ipratropium/Albuterol 3 ML NEB NEB SCH ×4 (06:36→18:41)
[2022-12-25] MEDS: Amiodarone 200 MG TAB PO SCH (08:45)
[2022-12-25] MEDS ORDERED: Milk Of Magnesia 30 ML UDCUP PO SCH (08:45)
[2022-12-25] MEDS: Carvedilol 6.25 MG TAB PO SCH ×2 (08:45→16:32)
[2022-12-25] MEDS: Febuxostat 40 MG TAB PO SCH (08:46)
[2022-12-25] MEDS: Lisinopril 20 MG TAB PO SCH (08:46)
[2022-12-25 10:29] LABS: #Eosinphils 0.3 thou/uL (0.0-0.7); #Monocytes 0.6 thou/uL (0.11-0.59); #Neutrophils 5.7 thou/uL (1.40-6.50); %Basophils 0.3 % (0.0-1.0); %Eosinophils 3.3 % (0.0-10.0); Hematocrit 25.7 % (42.0-52.0); Hemoglobin 7.9 g/dL (14.0-18.0); Mean Corpuscular HGB CONC 30.7 g/dL (32.0-36.0); Mean Corpuscular Hemoglobin 30.6 pg (27.0-31.0); Mean Corpuscular Volume 99.6 fl (78.0-98.0); Mean Platelet Volume 10.6 fL (7.4-10.4); Platelet Count 146 10x3/uL (130-400); RBC Distribution Width 18.3 % (11.5-14.5); Red Blood Cell (RBC) Count 2.58 mill/uL (4.70-6.10)
[2022-12-25] MEDS ORDERED: Heparin 1,000 UNITS/ML VIAL ONE (11:22)
[2022-12-25] MEDS: HumaLOG 300 UNITS/3 ML VIAL SC PRN ×2 (12:10→16:42)
[2022-12-25] MEDS: cefTRIAXone\\ROCEPHIN 1 GM in Sodium Chloride 0.9% 100 ML IVPB SCH (16:32)
[2022-12-26 04:19] LABS: #Eosinphils 0.2 thou/uL (0.0-0.7); #Monocytes 0.5 thou/uL (0.11-0.59); #Neutrophils 4.5 thou/uL (1.40-6.50); %Basophils 0.3 % (0.0-1.0); %Eosinophils 3.3 % (0.0-10.0); %Lymphocytes 24.3 % (21.0-51.0); Hematocrit 26.4 % (42.0-52.0); Hemoglobin 7.9 g/dL (14.0-18.0); Mean Corpuscular HGB CONC 29.9 g/dL (32.0-36.0); Mean Corpuscular Hemoglobin 29.8 pg (27.0-31.0); Mean Corpuscular Volume 99.6 fl (78.0-98.0); Mean Platelet Volume 10.7 fL (7.4-10.4); Platelet Count 148 10x3/uL (130-400); RBC Distribution Width 17.6 % (11.5-14.5); Red Blood Cell (RBC) Count 2.65 mill/uL (4.70-6.10)
[2022-12-26 04:50] LABS: Anion Gap 9 mmol/L (10-20); BUN (Urea Nitrogen) 35 mg/dL (8.4-25.7); Calc. Creatinine Clearance 69 mL/min (70-130); Calcium 8.2 mg/dL (7.8-10.44); Carbon Dioxide 24 mmol/L (23-31); Chloride 108 mmol/L (98-107); Estimated GFR 52; Glucose 150 mg/dL (83-110); Potassium 4.4 mmol/L (3.5-5.1); Sodium 137 mmol/L (136-145)
[2022-12-26] MEDS: Levothyroxine Sodium 75 MCG TAB PO SCH (06:27)
[2022-12-26] MEDS: Ipratropium/Albuterol 3 ML NEB NEB SCH ×4 (08:02→18:21)
[2022-12-26] MEDS ORDERED: Fleet Saline Enema 133 ML BOT PR SCH (09:15)
[2022-12-26] MEDS ORDERED: HYDROcodone/Acetaminophen 5/325 mg Tablet PO PRN (10:17)
[2022-12-26] MEDS ORDERED: Docusate 100 MG CAP PO SCH (10:45)
[2022-12-26] MEDS: Lisinopril 20 MG TAB PO SCH (13:42)
[2022-12-26] MEDS: Febuxostat 40 MG TAB PO SCH (13:42)
[2022-12-26] MEDS: Carvedilol 6.25 MG TAB PO SCH ×2 (13:42→16:28)
[2022-12-26] MEDS: Amiodarone 200 MG TAB PO SCH (13:43)
[2022-12-26] MEDS: Sodium Chloride 0.9% 1,000 ML IV SCH (13:44)
[2022-12-26] MEDS: HYDROcodone/Acetaminophen 5/325 mg Tablet PO SCH (15:29)
[2022-12-26] MEDS: cefTRIAXone\\ROCEPHIN 1 GM in Sodium Chloride 0.9% 100 ML IVPB SCH (16:28)
[2022-12-26] MEDS ORDERED: GoLYTELY 4,000 ml Bottle PO SCH (17:00)
[2022-12-26] MEDS: HumaLOG 300 UNITS/3 ML VIAL SC PRN (17:52)
[2022-12-26] MEDS: Docusate 100 MG CAP PO SCH (20:37)
[2022-12-27] MEDS: Sodium Chloride 0.9% 1,000 ML IV SCH (00:13)
[2022-12-27 04:21] LABS: #Eosinphils 0.2 thou/uL (0.0-0.7); #Monocytes 0.5 thou/uL (0.11-0.59); #Neutrophils 3.7 thou/uL (1.40-6.50); %Basophils 0.3 % (0.0-1.0); %Eosinophils 2.9 % (0.0-10.0); %Lymphocytes 29.2 % (21.0-51.0); %Monocytes 8.1 % (0.0-10.0); %Neutrophils 59.3 % (42.0-75.0); Hematocrit 27.5 % (42.0-52.0); Hemoglobin 8.4 g/dL (14.0-18.0); Mean Corpuscular HGB CONC 30.5 g/dL (32.0-36.0); Mean Corpuscular Volume 98.2 fl (78.0-98.0); Platelet Count 158 10x3/uL (130-400); RBC Distribution Width 16.8 % (11.5-14.5); White Blood Cell (WBC) Count 6.3 10x3/uL (4.8-10.8)
[2022-12-27 04:48] LABS: Anion Gap 9 mmol/L (10-20); BUN (Urea Nitrogen) 32 mg/dL (8.4-25.7); Calc. Creatinine Clearance 74 mL/min (70-130); Calcium 8.2 mg/dL (7.8-10.44); Carbon Dioxide 24 mmol/L (23-31); Chloride 109 mmol/L (98-107); Estimated GFR 56; Glucose 155 mg/dL (83-110); Potassium 4.2 mmol/L (3.5-5.1); Sodium 138 mmol/L (136-145)
[2022-12-27] MEDS: Levothyroxine Sodium 75 MCG TAB PO SCH (05:43)
[2022-12-27] MEDS: Ipratropium/Albuterol 3 ML NEB NEB SCH ×2 (07:04→10:44)
[2022-12-27] MEDS ORDERED: Milk Of Magnesia 30 ML UDCUP PO SCH (09:00)
[2022-12-27] MEDS: Carvedilol 6.25 MG TAB PO SCH (09:06)
[2022-12-27] MEDS: Docusate 100 MG CAP PO SCH (09:06)
[2022-12-27] MEDS: Lisinopril 20 MG TAB PO SCH (09:09)
[2022-12-27] MEDS: Amiodarone 200 MG TAB PO SCH (09:09)
[2022-12-27] MEDS: Febuxostat 40 MG TAB PO SCH (09:15)
[2022-12-27] MEDS: HumaLOG 300 UNITS/3 ML VIAL SC PRN (11:50)
[2022-12-27 11:54] VITALS: BP 136/63; TEMP 98
[2022-12-27] MEDS ORDERED: Rosuvastatin 20 MG TAB PO SCH (21:00)
[2022-12-29] MEDS ORDERED: Aspirin 81 mg Enteric Coated Tablet PO SCH (09:00)
== END 2022-12-27 13:50 | disposition home or self-care (01) | DRG 378 ==
LOC: ERS 11:34 → 2NO 15:53
PROVIDERS: ADMIT Family Medicine; ATTEND Family Medicine
PROC: 30233N1 Transfusion of Nonautologous Red Blood Cells into Peripheral Vein, Percutaneous Approach (ICD-10-PCS; 2022-12-19)
PROC: 0DJ08ZZ Inspection of Upper Intestinal Tract, Via Natural or Artificial Opening Endoscopic (ICD-10-PCS; principal; 2022-12-21)
PROC: 0DJD8ZZ Inspection of Lower Intestinal Tract, Via Natural or Artificial Opening Endoscopic (ICD-10-PCS; 2022-12-21)
DX: K57.51 Diverticulosis of both small and large intestine without perforation or abscess with bleeding (principal); D62 Acute posthemorrhagic anemia; N39.0 Urinary tract infection, site not specified; I50.40 Unspecified combined systolic (congestive) and diastolic (congestive) heart failure; I13.0 Hypertensive heart and chronic kidney disease with heart failure and stage 1 through stage 4 chronic kidney disease, or unspecified chronic kidney disease; I25.10 Atherosclerotic heart disease of native coronary artery without angina pectoris; E78.5 Hyperlipidemia, unspecified; E78.00 Pure hypercholesterolemia, unspecified; I25.5 Ischemic cardiomyopathy; N18.30 Chronic kidney disease, stage 3 unspecified; M10.9 Gout, unspecified; G47.33 Obstructive sleep apnea (adult) (pediatric); E03.9 Hypothyroidism, unspecified; E11.42 Type 2 diabetes mellitus with diabetic polyneuropathy; E11.51 Type 2 diabetes mellitus with diabetic peripheral angiopathy without gangrene; E11.22 Type 2 diabetes mellitus with diabetic chronic kidney disease; I48.0 Paroxysmal atrial fibrillation; I44.0 Atrioventricular block, first degree; Z95.1 Presence of aortocoronary bypass graft; Z98.890 Other specified postprocedural states; Z95.810 Presence of automatic (implantable) cardiac defibrillator; Z79.899 Other long term (current) drug therapy; Z88.8 Allergy status to other drugs, medicaments and biological substances; Z88.1 Allergy status to other antibiotic agents; Z88.0 Allergy status to penicillin
CPT/HCPCS: 36415; 36416; 36430; 71045; 74176; 78278; 80048; 80053; 80061; 81001; 83036; 83690; 83735; 83880; 84436; 84443; 84484; 85025; 85610; 85730; 86850; 86900; 86901; 87077; 87086; 87186; 94640; 96365; 96366; 96368; 96375; 96376; A9560; C9113; J0696; J1644; J1815; J2704; J2920; J3010; J3490; J7050; J7620; P9016

== ENCOUNTER 2023-01-10 09:35 | Outpatient (CLI) | payer OTHER, MEDICAID | END 2023-01-10 09:36 | disposition home or self-care (01) | PROVIDERS: ATTEND Specialist | DX: M54.50 Low back pain, unspecified (principal); I25.10 Atherosclerotic heart disease of native coronary artery without angina pectoris; I73.89 Other specified peripheral vascular diseases ==

== ENCOUNTER 2023-11-22 12:03 | Inpatient (IN) | payer MEDICARE, MEDICAID ==
[2023-11-22] MEDS ORDERED: Morphine 4 MG/ML VIAL ONE (12:35)
[2023-11-22 13:04] LABS: #Basophils Less than 0.03 10x3/uL (0.0-0.2); %Basophils 0.2 % (0.0-1.0); %Eosinophils 1.1 % (0.0-10.0); %Monocytes 9.1 % (0.0-10.0); %Neutrophils 74.3 % (42.0-75.0); Hematocrit 47.5 % (42.0-52.0); Hemoglobin 15.9 g/dL (14.0-18.0); Mean Corpuscular HGB CONC 33.5 g/dL (32.0-36.0); Mean Corpuscular Hemoglobin 31.5 pg (27.0-31.0); Mean Corpuscular Volume 94.2 fL (78.0-98.0); Mean Platelet Volume 11.2 fL (7.4-10.4); Platelet Count 188 10x3/uL (130-400); Red Blood Cell (RBC) Count 5.04 mill/uL (4.70-6.10)
[2023-11-22] MEDS ORDERED: Iopamidol-370 76% 500 ML MDV (1 ML CHARGE) ONE (13:08)
[2023-11-22 13:10] LABS: Bacteria/HPF 2+ HPF (None Seen); Bilirubin Negative (Negative); Blood, Urine Trace (Negative); CAUTI Indications for Culture Alt mental st,lethar; Clarity Turbid (Clear); Glucose, Urine (Dipstick) >=1000 mg/dL (Negative); Ketone, Urine Negative (Negative); Leukocyte 500 Leu/uL (Negative); Nitrite Negative (Negative); Protein, Urine (Dipstick) 20 mg/dL (Neg-Trace); RBC/HPF 0-3 HPF (0-3); Specific Gravity, Urine 1.008 (1.002-1.036); Squamous Epithelial None Seen HPF (0-3); Urobilinogen Normal mg/dL (Less than 2); WBC/HPF Greater than 50 HPF (0-3); pH, Urine 6.5 (5.0-9.0)
[2023-11-22 13:12] LABS: Urine Culture Reflex Yes Yes
[2023-11-22 13:17] LABS: Actual Bicarbonate (HCO3v) 19.9 mEq/L (22-28); Analyzer IN Cardio ER; Base Excess -3.8 mEq/L (-2.0 to +3.0); Chloride (VBG) 103 mmol/L (98-106); Hematocrit-VBG 55 % (42.0-52.0); Hemoglobin (Hb) 18.6 g/dL (12.6-17.4); Sodium 134 mmol/L (133-146); pH (venous) 7.393 (7.32-7.43)
[2023-11-22 13:21] LABS: Potassium (VBG) 6.12 mmol/L (3.70-5.30)
[2023-11-22 13:37] LABS: Troponin I 0.013 ng/mL (< 0.028)
[2023-11-22 13:39] LABS: ALT (SGPT) 40 U/L (8-55); AST (SGOT) 51 U/L (5-34); Alkaline Phosphatase 129 U/L (40-110); Anion Gap 14 mmol/L (10-20); BUN (Urea Nitrogen) 50 mg/dL (8.4-25.7); Calc. Creatinine Clearance 0 mL/min (70-130); Calcium 8.7 mg/dL (7.8-10.44); Carbon Dioxide 17 mmol/L (23-31); Chloride 108 mmol/L (98-107); Estimated GFR 30; Globulin 2.8 g/dL (2.4-3.5); Glucose 137 mg/dL (83-110); Potassium 6.5 mmol/L (3.5-5.1); Protein, Total 6.8 g/dL (5.8-8.1); Sodium 132 mmol/L (136-145)
[2023-11-22] MEDS ORDERED: Calcium Gluc 4.6 MEQ/10 ML (100 MG/ML) ONE ×2 (13:55→13:57)
[2023-11-22] MEDS ORDERED: Sodium Bicarb 50 mEq/50 ML VIAL ONE (13:56)
[2023-11-22] MEDS ORDERED: Insulin Regular, Human 100 UNIT/ML 10 ML VIAL ONE (13:59)
[2023-11-22] MEDS ORDERED: Glucagon 1 MG/ML KIT IM PRN (15:40)
[2023-11-22] MEDS ORDERED: Dextrose 50% Abboject 50 ML SYRINGE SLOW IVP PRN (15:40)
[2023-11-22] MEDS ORDERED: Ondansetron ODT 4 MG TAB PO PRN (15:40)
[2023-11-22] MEDS ORDERED: traMADol HCl 50 MG TAB PO PRN (15:40)
[2023-11-22] MEDS ORDERED: Acetaminophen 325 MG TAB PO PRN (15:40)
[2023-11-22] MEDS ORDERED: Dextrose 5% in Water 1,000 ML IV PRN (15:40)
[2023-11-22 19:52] LABS: Anion Gap 16 mmol/L (10-20); BUN (Urea Nitrogen) 43 mg/dL (8.4-25.7); Calc. Creatinine Clearance 0 mL/min (70-130); Calcium 9.4 mg/dL (7.8-10.44); Carbon Dioxide 18 mmol/L (23-31); Chloride 107 mmol/L (98-107); Estimated GFR 31; Glucose 108 mg/dL (83-110); Sodium 136 mmol/L (136-145)
[2023-11-22] MEDS: LOKELMA 10 GM PACKET PO SCH (20:35)
[2023-11-22] MEDS: Sodium Chloride 0.9% 1,000 ML IV SCH (20:35)
[2023-11-22] MEDS: Dextrose 50% Abboject 50 ML SYRINGE SLOW IVP SCH (20:35)
[2023-11-22] MEDS: Meropenem 1 GM in Sodium Chloride 0.9% 100 ML IVPB SCH (20:35)
[2023-11-22] MEDS: cefTRIAXone\\ROCEPHIN 1 GM in Sodium Chloride 0.9% 100 ML IVPB SCH (22:26)
[2023-11-22] MEDS ORDERED: HYDROcodone/Acetaminophen 7.5/325 mg Tablet PO SCH (23:45)
[2023-11-23] MEDS: HYDROcodone/Acetaminophen 10/325 mg Tablet PO SCH (00:34)
[2023-11-23 05:02] LABS: #Basophils 0.03 10x3/uL (0.0-0.2); %Basophils 0.3 % (0.0-1.0); %Eosinophils 2.7 % (0.0-10.0); %Lymphocytes 19.8 % (21.0-51.0); %Monocytes 12.3 % (0.0-10.0); %Neutrophils 64.8 % (42.0-75.0); Hematocrit 47.2 % (42.0-52.0); Hemoglobin 15.6 g/dL (14.0-18.0); Mean Corpuscular HGB CONC 33.1 g/dL (32.0-36.0); Mean Corpuscular Volume 93.7 fL (78.0-98.0); Mean Platelet Volume 11.2 fL (7.4-10.4); Platelet Count 180 10x3/uL (130-400); RBC Distribution Width 15.5 % (11.5-14.5); Red Blood Cell (RBC) Count 5.04 mill/uL (4.70-6.10)
[2023-11-23 05:47] LABS: ALT (SGPT) 33 U/L (8-55); AST (SGOT) 41 U/L (5-34); Albumin 3.7 g/dL (3.4-4.8); Alkaline Phosphatase 114 U/L (40-110); Anion Gap 13 mmol/L (10-20); BUN (Urea Nitrogen) 39 mg/dL (8.4-25.7); Bilirubin, Total 0.7 mg/dL (0.2-1.2); Calc. Creatinine Clearance 0 mL/min (70-130); Calcium 9.3 mg/dL (7.8-10.44); Carbon Dioxide 21 mmol/L (23-31); Chloride 107 mmol/L (98-107); Estimated GFR 34; Globulin 3.3 g/dL (2.4-3.5); Glucose 71 mg/dL (83-110); Potassium 4.8 mmol/L (3.5-5.1); Sodium 136 mmol/L (136-145)
[2023-11-23] MEDS: Pantoprazole DR 40 MG TAB PO SCH (09:17)
[2023-11-23] MEDS: Enoxaparin 40 MG (0.4 mL) SYRINGE SC SCH (09:17)
[2023-11-23] MEDS: Carvedilol 6.25 MG TAB PO SCH ×2 (10:12→23:01)
[2023-11-23] MEDS: Insulin Regular, Human 100 UNIT/ML 10 ML VIAL SC PRN (12:21)
[2023-11-23] MEDS: HYDROcodone/Acetaminophen 5/325 mg Tablet PO PRN (12:22)
[2023-11-23] MEDS: Gabapentin 300 MG CAP PO SCH (15:46)
[2023-11-23] MEDS: Polyethylene Glycol 3350 17 GM Packet PO SCH (15:47)
[2023-11-23] MEDS: Ipratropium/Albuterol 3 ML NEB ONE (22:59)
[2023-11-24] MEDS: Levothyroxine Sodium 75 MCG TAB PO SCH (04:57)
[2023-11-24 06:36] LABS: Anion Gap 11 mmol/L (10-20); BUN (Urea Nitrogen) 38 mg/dL (8.4-25.7); Calc. Creatinine Clearance 0 mL/min (70-130); Calcium 8.8 mg/dL (7.8-10.44); Carbon Dioxide 22 mmol/L (23-31); Chloride 109 mmol/L (98-107); Estimated GFR 35; Glucose 130 mg/dL (83-110); Potassium 5.4 mmol/L (3.5-5.1); Sodium 137 mmol/L (136-145)
[2023-11-24] MEDS: Sodium Bicarbonate 150 MEQ in Dextrose 5% in Water 1,000 ML IV SCH (08:13)
[2023-11-24] MEDS: Amiodarone 200 MG TAB PO SCH (08:15)
[2023-11-24] MEDS: Senokot S 8.6-50 MG TAB PO PRN (08:24)
[2023-11-24] MEDS: Polyethylene Glycol 3350 17 GM Packet PO PRN (08:24)
[2023-11-24] MEDS: Budesonide 0.5 MG/2 ML NEB NEB PRN (11:16)
[2023-11-24] MEDS: LOKELMA 10 GM PACKET PO SCH (11:35)
[2023-11-25 06:43] LABS: Anion Gap 14 mmol/L (10-20); BUN (Urea Nitrogen) 34 mg/dL (8.4-25.7); Calc. Creatinine Clearance 0 mL/min (70-130); Calcium 8.8 mg/dL (7.8-10.44); Carbon Dioxide 27 mmol/L (23-31); Chloride 103 mmol/L (98-107); Estimated GFR 37; Glucose 193 mg/dL (83-110); Potassium 4.7 mmol/L (3.5-5.1); Sodium 139 mmol/L (136-145)
[2023-11-25] MEDS: Mineral Oil ENEMA PR SCH (15:09)
[2023-11-26 06:32] LABS: Anion Gap 11 mmol/L (10-20); BUN (Urea Nitrogen) 34 mg/dL (8.4-25.7); Calc. Creatinine Clearance 0 mL/min (70-130); Calcium 8.8 mg/dL (7.8-10.44); Carbon Dioxide 29 mmol/L (23-31); Chloride 102 mmol/L (98-107); Estimated GFR 38; Glucose 192 mg/dL (83-110); Potassium 4.2 mmol/L (3.5-5.1); Sodium 138 mmol/L (136-145)
[2023-11-26] MEDS: Milk Of Magnesia 30 ML UDCUP PO SCH (12:08)
[2023-11-26 12:16] VITALS: BP 128/71; TEMP 97.7
[2023-11-27] MEDS ORDERED: Alogliptin 25 MG TAB PO SCH (09:00)
[2023-11-27] MEDS ORDERED: Non-Formulary Item 1 EACH (Sitagliptin Phosphate [Januvia] 100 MG Tab) PO SCH (09:00)
== END 2023-11-26 14:23 | disposition home or self-care (01) | DRG 683 ==
LOC: ERS 12:03 → OBSVTOIN 15:10 → 2NO 15:10 → T4-A 11-23 19:11
PROVIDERS: ADMIT Internal Medicine; ATTEND Internal Medicine
DX: N17.9 Acute kidney failure, unspecified (principal); E87.20 Acidosis, unspecified; I13.0 Hypertensive heart and chronic kidney disease with heart failure and stage 1 through stage 4 chronic kidney disease, or unspecified chronic kidney disease; I42.9 Cardiomyopathy, unspecified; N39.0 Urinary tract infection, site not specified; I50.32 Chronic diastolic (congestive) heart failure; I25.10 Atherosclerotic heart disease of native coronary artery without angina pectoris; E11.22 Type 2 diabetes mellitus with diabetic chronic kidney disease; N18.30 Chronic kidney disease, stage 3 unspecified; E87.5 Hyperkalemia; G47.33 Obstructive sleep apnea (adult) (pediatric); K21.9 Gastro-esophageal reflux disease without esophagitis; E11.51 Type 2 diabetes mellitus with diabetic peripheral angiopathy without gangrene; E78.00 Pure hypercholesterolemia, unspecified; M10.9 Gout, unspecified; K59.00 Constipation, unspecified; Z88.0 Allergy status to penicillin; Z88.1 Allergy status to other antibiotic agents; Z88.2 Allergy status to sulfonamides; Z95.810 Presence of automatic (implantable) cardiac defibrillator; Z95.1 Presence of aortocoronary bypass graft; Z79.899 Other long term (current) drug therapy; Z79.890 Hormone replacement therapy; Z79.4 Long term (current) use of insulin; E11.21 Type 2 diabetes mellitus with diabetic nephropathy; Z79.51 Long term (current) use of inhaled steroids; Z79.84 Long term (current) use of oral hypoglycemic drugs
CPT/HCPCS: 36415; 36416; 70450; 71045; 74177; 76770; 80048; 80053; 81001; 82274; 82805; 83605; 84484; 85025; 87040; 87077; 87086; 87186; 93005; 94640; 96374; 96375; J0612; J0696; J1650; J1815; J2185; J2270; J3490; J7050; J7070; J7626; J7999; Q9967

== ENCOUNTER 2024-02-27 17:40 | Inpatient (IN) | payer MEDICARE, MEDICAID ==
[2024-02-27 18:42] LABS: #Basophils 0.04 10x3/uL (0.0-0.2); %Basophils 0.5 % (0.0-1.0); %Eosinophils 2.2 % (0.0-10.0); %Lymphocytes 12.8 % (21.0-51.0); %Monocytes 8.1 % (0.0-10.0); %Neutrophils 75.8 % (42.0-75.0); Hematocrit 48.4 % (42.0-52.0); Hemoglobin 14.7 g/dL (14.0-18.0); Mean Corpuscular HGB CONC 30.4 g/dL (32.0-36.0); Mean Corpuscular Hemoglobin 30.9 pg (27.0-31.0); Mean Corpuscular Volume 101.7 fL (78.0-98.0); Mean Platelet Volume 11.5 fL (7.4-10.4); Platelet Count 144 10x3/uL (130-400); RBC Distribution Width 15.8 % (11.5-14.5); Red Blood Cell (RBC) Count 4.76 mill/uL (4.70-6.10)
[2024-02-27 18:47] LABS: ALT (SGPT) 24 U/L (8-55); AST (SGOT) 27 U/L (5-34); Albumin 3.8 g/dL (3.4-4.8); Alkaline Phosphatase 194 U/L (40-110); Anion Gap 11 mmol/L (10-20); BUN (Urea Nitrogen) 33 mg/dL (8.4-25.7); Calc. Creatinine Clearance 0 mL/min (70-130); Calcium 9.2 mg/dL (7.8-10.44); Carbon Dioxide 30 mmol/L (23-31); Chloride 107 mmol/L (98-107); Estimated GFR 44; Glucose 293 mg/dL (83-110); Potassium 4.2 mmol/L (3.5-5.1); Protein, Total 6.8 g/dL (5.8-8.1); Sodium 144 mmol/L (136-145)
[2024-02-27 18:50] LABS: Troponin I 0.019 ng/mL (< 0.028)
[2024-02-27] MEDS ORDERED: Furosemide 40 MG (4 mL) VIAL ONE (19:00)
[2024-02-27 20:26] LABS: Bacteria/HPF 3+ HPF (None Seen); Bilirubin Negative (Negative); Blood, Urine Negative (Negative); CAUTI Indications for Culture Alt mental st,lethar; Clarity Clear (Clear); Glucose, Urine (Dipstick) Greater than 1000 mg/dL (Negative); Ketone, Urine Negative (Negative); Leukocyte 75 Leu/uL (Negative); Nitrite Negative (Negative); Protein, Urine (Dipstick) 10 mg/dL (Neg-Trace); RBC/HPF 0-3 HPF (0-3); Specific Gravity, Urine 1.006 (1.002-1.036); Squamous Epithelial None Seen HPF (0-3); Urobilinogen Normal mg/dL (Less than 2)
[2024-02-27 20:32] LABS: Urine Culture Reflex Yes Yes
[2024-02-27] MEDS ORDERED: Calcium Carbonate 500 MG ChewTAB PO PRN (22:09)
[2024-02-27] MEDS ORDERED: Ondansetron PF 4 MG/2 ML Vial IVP PRN (22:09)
[2024-02-27] MEDS ORDERED: Acetaminophen 650 MG Suppository PR PRN (22:09)
[2024-02-27] MEDS ORDERED: Ondansetron ODT 4 MG TAB PO PRN (22:09)
[2024-02-27] MEDS ORDERED: Dextrose 5% in Water 1,000 ML IV PRN (22:17)
[2024-02-27] MEDS ORDERED: Glucagon 1 MG/ML KIT IM PRN (22:17)
[2024-02-27] MEDS ORDERED: Dextrose 50% Abboject 50 ML SYRINGE SLOW IVP PRN (22:17)
[2024-02-27 23:07] LABS: Hemoglobin A1c 7.4 % (4.0-6.0)
[2024-02-27] MEDS: cefTRIAXone\\ROCEPHIN 1 GM in Sodium Chloride 0.9% 100 ML IVPB SCH (23:59)
[2024-02-28] MEDS: Acetaminophen 325 MG TAB PO SCH (01:26)
[2024-02-28] MEDS: HYDROcodone/Acetaminophen 10/325 mg Tablet PO PRN (02:31)
[2024-02-28 04:41] LABS: #Basophils Less than 0.03 10x3/uL (0.0-0.2); %Basophils 0.2 % (0.0-1.0); %Eosinophils 1.8 % (0.0-10.0); %Lymphocytes 9.1 % (21.0-51.0); %Monocytes 8.8 % (0.0-10.0); %Neutrophils 79.9 % (42.0-75.0); Hematocrit 46.6 % (42.0-52.0); Hemoglobin 14.4 g/dL (14.0-18.0); Mean Corpuscular HGB CONC 30.9 g/dL (32.0-36.0); Mean Corpuscular Hemoglobin 30.9 pg (27.0-31.0); Mean Platelet Volume 12.1 fL (7.4-10.4); Platelet Count 134 10x3/uL (130-400); Red Blood Cell (RBC) Count 4.66 mill/uL (4.70-6.10)
[2024-02-28 04:51] LABS: Anion Gap 13 mmol/L (10-20); BUN (Urea Nitrogen) 32 mg/dL (8.4-25.7); Calc. Creatinine Clearance 0 mL/min (70-130); Carbon Dioxide 31 mmol/L (23-31); Chloride 105 mmol/L (98-107); Estimated GFR 47; Glucose 246 mg/dL (83-110); Potassium 3.8 mmol/L (3.5-5.1); Sodium 145 mmol/L (136-145)
[2024-02-28] MEDS: Furosemide 40 MG (4 mL) VIAL SLOW IVP SCH ×2 (06:02→17:15)
[2024-02-28] MEDS: Levothyroxine Sodium 75 MCG TAB PO SCH (06:03)
[2024-02-28] MEDS ORDERED: Plecanatide [Trulance] 3 MG Tablet PO SCH (09:00)
[2024-02-28] MEDS: Oxybutynin 5 MG TAB PO SCH (09:34)
[2024-02-28] MEDS: Saxagliptin 2.5 MG TAB PO SCH (09:34)
[2024-02-28] MEDS: Aspirin 81 mg Enteric Coated Tablet PO SCH (09:34)
[2024-02-28] MEDS: Carvedilol 6.25 MG TAB PO SCH (09:34)
[2024-02-28] MEDS: Amiodarone 200 MG TAB PO SCH (09:34)
[2024-02-28] MEDS: Famotidine 20 MG TAB PO SCH (09:35)
[2024-02-28] MEDS: Famotidine/PF 20 mg/2ml Vial SLOW IVP SCH (09:35)
[2024-02-28] MEDS: Febuxostat 40 MG TAB PO SCH (09:37)
[2024-02-28] MEDS: Insulin Lispro 100 UNIT/ML 10 ML VIAL SC PRN ×2 (12:41→20:59)
[2024-02-28] MEDS ORDERED: Polyethylene Glycol 3350 17 GM Packet PO PRN (14:52)
[2024-02-28] MEDS: Polyethylene Glycol 3350 17 GM Packet PO SCH (15:07)
[2024-02-28] MEDS: Atorvastatin Calcium 40 MG TAB PO SCH (20:57)
[2024-02-28] MEDS: cefTRIAXone\\ROCEPHIN 1 GM in Sodium Chloride 0.9% 100 ML IVPB SCH (23:37)
[2024-02-29 04:51] LABS: Anion Gap 12 mmol/L (10-20); BUN (Urea Nitrogen) 36 mg/dL (8.4-25.7); Calc. Creatinine Clearance 69 mL/min (70-130); Calcium 9.1 mg/dL (7.8-10.44); Carbon Dioxide 34 mmol/L (23-31); Chloride 101 mmol/L (98-107); Estimated GFR 48; Glucose 184 mg/dL (83-110); Iron 48 ug/dL (65-175); Iron Binding Capacity, Total 293 mcg/dL (261-462); Potassium 3.5 mmol/L (3.5-5.1); Sodium 143 mmol/L (136-145)
[2024-02-29 05:18] LABS: #Basophils 0.03 10x3/uL (0.0-0.2); %Basophils 0.4 % (0.0-1.0); %Eosinophils 2.1 % (0.0-10.0); %Lymphocytes 6.8 % (21.0-51.0); %Monocytes 9.3 % (0.0-10.0); Hematocrit 45.5 % (42.0-52.0); Hemoglobin 13.7 g/dL (14.0-18.0); Mean Corpuscular HGB CONC 30.1 g/dL (32.0-36.0); Mean Corpuscular Hemoglobin 30.7 pg (27.0-31.0); Mean Platelet Volume 11.6 fL (7.4-10.4); Platelet Count 121 10x3/uL (130-400); RBC Distribution Width 15.7 % (11.5-14.5); Red Blood Cell (RBC) Count 4.46 mill/uL (4.70-6.10)
[2024-02-29] MEDS: Spironolactone 25 MG TAB PO SCH (08:31)
[2024-02-29] MEDS: Empagliflozin 10 MG TAB PO SCH (08:31)
[2024-02-29] MEDS: Polyethylene Glycol 3350 17 GM Packet PO SCH (08:31)
[2024-02-29] MEDS: Carvedilol 6.25 MG TAB PO SCH ×2 (10:06→16:20)
[2024-02-29] MEDS: Sodium Ferric Gluconate 250 MG in Sodium Chloride 0.9% 250 ML 250 ML IVPB SCH (12:02)
[2024-02-29] MEDS: Furosemide 100 MG (10 mL) VIAL SLOW IVP SCH (13:39)
[2024-02-29] MEDS: Heparin 5,000 UNITS/ML VIAL SC SCH (21:21)
[2024-02-29] MEDS: Famotidine 20 MG TAB PO SCH (21:21)
[2024-03-01] MEDS: Famotidine/PF 20 mg/2ml Vial SLOW IVP SCH (01:08)
[2024-03-01 04:05] LABS: #Basophils Less than 0.03 10x3/uL (0.0-0.2); %Basophils 0.3 % (0.0-1.0); %Eosinophils 3.1 % (0.0-10.0); %Lymphocytes 12.8 % (21.0-51.0); %Monocytes 11.1 % (0.0-10.0); %Neutrophils 72.4 % (42.0-75.0); Hematocrit 45.8 % (42.0-52.0); Mean Corpuscular HGB CONC 30.6 g/dL (32.0-36.0); Mean Corpuscular Hemoglobin 30.8 pg (27.0-31.0); Mean Corpuscular Volume 100.9 fL (78.0-98.0); Mean Platelet Volume 11.2 fL (7.4-10.4); Platelet Count 131 10x3/uL (130-400); RBC Distribution Width 15.7 % (11.5-14.5); Red Blood Cell (RBC) Count 4.54 mill/uL (4.70-6.10)
[2024-03-01 04:21] LABS: Anion Gap 14 mmol/L (10-20); BUN (Urea Nitrogen) 44 mg/dL (8.4-25.7); Calc. Creatinine Clearance 52 mL/min (70-130); Carbon Dioxide 35 mmol/L (23-31); Chloride 99 mmol/L (98-107); Estimated GFR 36; Glucose 155 mg/dL (83-110); Potassium 3.6 mmol/L (3.5-5.1); Sodium 144 mmol/L (136-145)
[2024-03-01] MEDS: Pantoprazole DR 40 MG TAB PO SCH (09:12)
[2024-03-02 04:21] LABS: #Basophils 0.03 10x3/uL (0.0-0.2); %Basophils 0.4 % (0.0-1.0); %Eosinophils 3.2 % (0.0-10.0); %Lymphocytes 13.7 % (21.0-51.0); %Monocytes 10.8 % (0.0-10.0); %Neutrophils 71.6 % (42.0-75.0); Hemoglobin 14.3 g/dL (14.0-18.0); Mean Corpuscular HGB CONC 31.1 g/dL (32.0-36.0); Mean Corpuscular Hemoglobin 30.5 pg (27.0-31.0); Mean Corpuscular Volume 98.1 fL (78.0-98.0); Mean Platelet Volume 11.6 fL (7.4-10.4); Platelet Count 137 10x3/uL (130-400); RBC Distribution Width 15.8 % (11.5-14.5); Red Blood Cell (RBC) Count 4.69 mill/uL (4.70-6.10)
[2024-03-02 04:38] LABS: Albumin 3.6 g/dL (3.4-4.8); Anion Gap 15 mmol/L (10-20); BUN (Urea Nitrogen) 43 mg/dL (8.4-25.7); BUN/Creatinine Ratio 23.89; Calc. Creatinine Clearance 54 mL/min (70-130); Calcium 8.8 mg/dL (7.8-10.44); Carbon Dioxide 31 mmol/L (23-31); Chloride 101 mmol/L (98-107); Estimated GFR 37; Glucose 183 mg/dL (83-110); Magnesium 2.4 mg/dL (1.6-2.6); Phosphorus 3.5 mg/dL (2.3-4.7); Potassium 3.7 mmol/L (3.5-5.1); Sodium 143 mmol/L (136-145)
[2024-03-02] MEDS: Famotidine/PF 20 mg/2ml Vial SLOW IVP SCH (08:57)
[2024-03-02] MEDS: Famotidine 20 MG TAB PO SCH (08:57)
[2024-03-02] MEDS: Empagliflozin 10 MG TAB PO SCH (08:57)
[2024-03-02] MEDS: Furosemide 40 MG TAB PO SCH (08:58)
[2024-03-02 14:05] VITALS: BP 155/78; TEMP 97.8
== END 2024-03-02 14:07 | disposition home or self-care (01) | DRG 291 ==
LOC: ERS 17:40 → 2NO 20:27
PROVIDERS: ADMIT Student in an Organized Health Care Education/Training Program; ATTEND Internal Medicine
DX: I13.0 Hypertensive heart and chronic kidney disease with heart failure and stage 1 through stage 4 chronic kidney disease, or unspecified chronic kidney disease (principal); I50.43 Acute on chronic combined systolic (congestive) and diastolic (congestive) heart failure; J96.01 Acute respiratory failure with hypoxia; N39.0 Urinary tract infection, site not specified; E87.3 Alkalosis; I45.2 Bifascicular block; N17.9 Acute kidney failure, unspecified; I25.10 Atherosclerotic heart disease of native coronary artery without angina pectoris; N18.30 Chronic kidney disease, stage 3 unspecified; E66.9 Obesity, unspecified; E11.22 Type 2 diabetes mellitus with diabetic chronic kidney disease; M10.9 Gout, unspecified; Z95.1 Presence of aortocoronary bypass graft; Z95.810 Presence of automatic (implantable) cardiac defibrillator; Z88.0 Allergy status to penicillin; Z88.8 Allergy status to other drugs, medicaments and biological substances; Z98.890 Other specified postprocedural states; Z83.3 Family history of diabetes mellitus; Z68.37 Body mass index [BMI] 37.0-37.9, adult; E03.9 Hypothyroidism, unspecified; I44.0 Atrioventricular block, first degree
CPT/HCPCS: 36415; 36416; 71045; 76770; 80048; 80053; 80069; 81001; 82728; 83036; 83540; 83550; 83735; 83880; 84484; 85025; 87077; 87086; 87186; 93005; 93798; 97139; J0696; J1644; J1815; J1940; J2916; J3490; J7050